=== PATIENT | male | born 1975 | race Hispanic/Latino ===

== ENCOUNTER 2016-11-25 07:31 | Emergency (ER) | payer MEDICARE, MEDICAID ==
--- NOTE | 2016-11-25 08:15 | RAD ---
2 VIEWS CHEST: Date: 11/25/16 COMPARISON: 09/09/16. HISTORY: Cough with congestion. FINDINGS: Two views of the chest show normal sized cardiomediastinal silhouette. There is no evidence of conso lidation, mass, or pleural effusion. The bones are unremarkable. IMPRESSION: No evidence of acute cardiopulmonary disease. POS: [facility]
[2016-11-25 08:36] LABS: #Basophils 0.1 thou/uL (0.0-0.2); #Eosinphils 0.2 thou/uL (0.0-0.7); #Lymphocytes 2.3 thou/uL (1.20-3.40); #Monocytes 0.5 thou/uL (0.11-0.59); #Neutrophils 4.4 thou/uL (1.40-6.50); %Eosinophils 2.3 % (0.0-10.0); %Lymphocytes 30.8 % (21.0-51.0); Hematocrit 45.3 % (42.0-52.0); Mean Platelet Volume 7.3 fL (7.4-10.4); White Blood Cell (WBC) Count 7.5 thou/uL (4.8-10.8)
[2016-11-25 08:52] LABS: ALT (SGPT) 38 U/L (8-55); AST (SGOT) 30 U/L (5-34); Alkaline Phosphatase 85 U/L (40-150); Anion Gap 11 mmol/L (10-20); BUN (Urea Nitrogen) 7 mg/dL (8.9-20.6); Bilirubin, Total 0.4 mg/dL (0.2-1.2); CK (CPK) 91 U/L (30-200); Calc. Creatinine Clearance 0 mL/min (70-130); Calcium 8.8 mg/dL (7.8-10.44); Carbon Dioxide 19 mmol/L (22-29); Chloride 114 mmol/L (98-107); Estimated GFR-MDRD 69; Globulin 2.9 g/dL (2.4-3.5); Lipase 31 U/L (8-78); Protein, Total 6.9 g/dL (6.0-8.3)
[2016-11-25 08:54] LABS: Bilirubin Negative (Negative); Blood, Urine Negative (Negative); Glucose, Urine (Dipstick) Negative (Negative); Ketone, Urine Negative (Negative); Nitrite Negative (Negative); Protein, Urine (Dipstick) Negative (Neg-Trace); Urobilinogen 0.2 mg/dL (0.2-1.0)
[2016-11-25 08:56] LABS: Troponin I Less than 0.010 ng/mL (< 0.028)
== END 2016-11-25 09:35 | disposition home or self-care (01) ==
LOC: ERS 07:31
DX: B34.9 Viral infection, unspecified (principal); J45.909 Unspecified asthma, uncomplicated; I10 Essential (primary) hypertension
CPT/HCPCS: 36415; 71020; 80053; 81003; 82553; 83690; 83880; 84484; 85025; 93005

== ENCOUNTER 2016-12-23 20:20 | Emergency (ER) | payer MEDICARE, MEDICAID ==
[2016-12-23] MEDS ORDERED: Ketorolac Tromethamine 30 MG/ML VIAL ONE (21:31)
--- NOTE | 2016-12-23 22:26 | RAD ---
FOUR VIEWS RIGHT KNEE 12/23/16 HISTORY: Right knee pain. AP, lateral and both oblique views of the right knee is obtained. No evidence of right knee fractures, subluxations or bony lesions seen. IMPRESSION: Normal four views right knee. POS: [facility]
== END 2016-12-23 23:01 | disposition home or self-care (01) ==
LOC: ERS 20:20
DX: M23.91 Unspecified internal derangement of right knee (principal); J45.909 Unspecified asthma, uncomplicated; I11.0 Hypertensive heart disease with heart failure; I50.9 Heart failure, unspecified; Z86.73 Personal history of transient ischemic attack (TIA), and cerebral infarction without residual deficits; X50.1XXA Overexertion from prolonged static or awkward postures, initial encounter
CPT/HCPCS: 96372; J1885

== ENCOUNTER 2016-12-30 20:09 | Emergency (ER) | payer MEDICARE, MEDICAID ==
[2016-12-30 20:41] LABS: #Basophils 0.1 thou/uL (0.0-0.2); #Eosinphils 0.2 thou/uL (0.0-0.7); #Lymphocytes 2.5 thou/uL (1.20-3.40); #Monocytes 0.9 thou/uL (0.11-0.59); #Neutrophils 5.4 thou/uL (1.40-6.50); %Basophils 1.1 % (0.0-1.0); %Eosinophils 2.5 % (0.0-10.0); %Lymphocytes 27.3 % (21.0-51.0); %Monocytes 9.6 % (0.0-10.0); Hematocrit 40.8 % (42.0-52.0); Mean Platelet Volume 6.9 fL (7.4-10.4); Red Blood Cell (RBC) Count 4.36 mill/uL (4.70-6.10); White Blood Cell (WBC) Count 9.1 thou/uL (4.8-10.8)
[2016-12-30 21:02] LABS: ALT (SGPT) 31 U/L (8-55); AST (SGOT) 23 U/L (5-34); Alkaline Phosphatase 91 U/L (40-150); Anion Gap 13 mmol/L (10-20); BUN (Urea Nitrogen) 11 mg/dL (8.9-20.6); Bilirubin, Total 0.4 mg/dL (0.2-1.2); Calc. Creatinine Clearance 0 mL/min (70-130); Calcium 8.4 mg/dL (7.8-10.44); Carbon Dioxide 17 mmol/L (22-29); Chloride 112 mmol/L (98-107); Estimated GFR-MDRD 75; Globulin 2.7 g/dL (2.4-3.5); Protein, Total 6.5 g/dL (6.0-8.3)
[2016-12-30] MEDS ORDERED: Ketorolac Tromethamine 30 MG/ML VIAL ONE ×2 (21:52→22:00)
--- NOTE | 2017-02-19 13:58 | EKG ---
Test Reason : Blood Pressure : / mmHG Vent. Rate : 069 BPM Atrial Rate : 069 BPM P-R Int : 134 ms QRS Dur : 098 ms QT Int : 402 ms P-R-T Axes : 017 014 021 degrees QTc Int : 430 ms Normal sinus rhythm Normal ECG Confirmed by CLINTON MELENDEZ DO ([id number]), state editor TU PEARSON ([id number]) on 02/19/2017 1:58:22 PM Referred By: Confirmed By:CLINTON MELENDEZ DO
== END 2016-12-30 23:27 | disposition home or self-care (01) ==
LOC: ERS 20:09
DX: R42 Dizziness and giddiness (principal); T48.205A Adverse effect of unspecified drugs acting on muscles, initial encounter; J45.909 Unspecified asthma, uncomplicated; I11.0 Hypertensive heart disease with heart failure; I50.9 Heart failure, unspecified; I25.2 Old myocardial infarction
CPT/HCPCS: 36415; 80053; 85025; 93005; 96361; 96374; J1885

== ENCOUNTER 2017-05-18 14:27 | Emergency (ER) | payer MEDICARE, MEDICAID ==
[2017-05-18 15:46] LABS: #Basophils 0.1 thou/uL (0.0-0.2); #Eosinphils 0.2 thou/uL (0.0-0.7); #Lymphocytes 2.8 thou/uL (1.20-3.40); #Monocytes 0.9 thou/uL (0.11-0.59); #Neutrophils 5.5 thou/uL (1.40-6.50); %Basophils 0.7 % (0.0-1.0); %Eosinophils 1.7 % (0.0-10.0); %Lymphocytes 29.9 % (21.0-51.0); %Monocytes 9.3 % (0.0-10.0); %Neutrophils 58.4 % (42.0-75.0); Hemoglobin 15.7 g/dL (14.0-18.0); Mean Corpuscular HGB CONC 34.4 g/dL (32.0-36.0); Mean Corpuscular Hemoglobin 31.8 pg (27.0-31.0); Mean Corpuscular Volume 92.4 fl (80.0-94.0); Mean Platelet Volume 7.2 fL (7.4-10.4); Platelet Count 271 thou/uL (130-400); Red Blood Cell (RBC) Count 4.92 mill/uL (4.70-6.10); White Blood Cell (WBC) Count 9.5 thou/uL (4.8-10.8)
[2017-05-18 16:08] LABS: ALT (SGPT) 55 U/L (8-55); AST (SGOT) 37 U/L (5-34); Albumin 4.3 g/dL (3.5-5.0); Alkaline Phosphatase 114 U/L (40-150); Anion Gap 14 mmol/L (10-20); BUN (Urea Nitrogen) 8 mg/dL (8.9-20.6); Bilirubin, Total 0.4 mg/dL (0.2-1.2); Calc. Creatinine Clearance 0 mL/min (70-130); Calcium 9.2 mg/dL (7.8-10.44); Carbon Dioxide 20 mmol/L (22-29); Chloride 110 mmol/L (98-107); Estimated GFR-MDRD 72; Glucose 90 mg/dL (70-105); Potassium 4.3 mmol/L (3.5-5.1); Protein, Total 7.3 g/dL (6.0-8.3); Sodium 140 mmol/L (136-145)
--- NOTE | 2017-05-18 16:08 | RAD ---
FRONTAL VIEW CHEST: Date: 05/18/17 COMPARISON: 11/25/16. INDICATION: Dyspnea. FINDINGS: There is a subtle nodular density at the inferolateral right chest. Left lung is clear. Cardiac silho uette is stable. No additional significant interval change. IMPRESSION: Subtle nodular density inferolateral right hemithorax. Underlying nodule cannot be excluded. Recommen d follow-up with 2 view chest for further evaluation. CODE LN. POS: [facility]
[2017-05-18 16:12] LABS: CKMB 4.3 ng/mL (0-6.6); Troponin I Less than 0.010 ng/mL (< 0.028)
[2017-05-18] MEDS ORDERED: Metoclopramide HCl 10 MG/2 ML VIAL ONE (17:27)
[2017-05-18] MEDS ORDERED: diphenhydrAMINE 50 MG/ML VIAL ONE (17:27)
[2017-05-18 17:53] LABS: Bilirubin Negative (Negative); Blood, Urine Negative (Negative); Clarity CLEAR (Clear); Glucose, Urine (Dipstick) Negative (Negative); Leukocyte Negative (Negative); Nitrite Negative (Negative); Protein, Urine (Dipstick) Negative (Neg-Trace); Specific Gravity, Urine 1.017 (1.002-1.036); Urobilinogen 0.2 mg/dL (0.2-1.0); pH, Urine 5.5 (5.0-9.0)
--- NOTE | 2017-05-18 18:50 | CT ---
CT BRAIN NONCONTRAST: 05/18/17 HISTORY: 42-year-old male with headache, syncope, and dizziness. FINDINGS: There is no midline shift or any other mass effect. There is no evidence of acute intracranial hemor rhage, large cortical infarct, obstructive hydrocephalus, or extraaxial fluid collection. The calvar ium is intact. IMPRESSION: No acute intracranial findings. jn [] POS: [facility]
== END 2017-05-18 19:50 | disposition home or self-care (01) ==
LOC: ERS 14:27
DX: R51 Headache (principal); M79.1 Myalgia; I11.0 Hypertensive heart disease with heart failure; J45.909 Unspecified asthma, uncomplicated; I50.9 Heart failure, unspecified; I25.2 Old myocardial infarction; F32.9 Major depressive disorder, single episode, unspecified; Z86.73 Personal history of transient ischemic attack (TIA), and cerebral infarction without residual deficits
CPT/HCPCS: 36415; 70450; 71045; 80053; 81003; 82553; 83880; 84484; 85025; 93005; 96365; 96375; J1200; J2765

== ENCOUNTER 2017-06-03 18:26 | Emergency (ER) | payer MEDICARE, MEDICAID ==
[2017-06-03] MEDS ORDERED: Fluorescein Opthalmic Strip ONE (18:42)
[2017-06-03] MEDS ORDERED: Proparacaine 0.5% Opth 15 ML BOT ONE (18:42)
[2017-06-03] MEDS ORDERED: Adacel (T-DAP) 0.5 ML VIAL ONE (20:07)
== END 2017-06-03 20:20 | disposition home or self-care (01) ==
LOC: ERS 18:26
DX: S05.02XA Injury of conjunctiva and corneal abrasion without foreign body, left eye, initial encounter (principal); S05.01XA Injury of conjunctiva and corneal abrasion without foreign body, right eye, initial encounter; S00.211A Abrasion of right eyelid and periocular area, initial encounter; S00.31XA Abrasion of nose, initial encounter; S50.311A Abrasion of right elbow, initial encounter; F41.9 Anxiety disorder, unspecified; I11.0 Hypertensive heart disease with heart failure; I50.9 Heart failure, unspecified; I25.2 Old myocardial infarction; F32.9 Major depressive disorder, single episode, unspecified; Z79.899 Other long term (current) drug therapy; Y04.0XXA Assault by unarmed brawl or fight, initial encounter
CPT/HCPCS: 90471; 90715; 93005

== ENCOUNTER 2017-08-08 06:58 | Emergency (ER) | payer MEDICARE, MEDICAID ==
[2017-08-08 07:42] LABS: #Basophils 0.1 thou/uL (0.0-0.2); #Eosinphils 0.2 thou/uL (0.0-0.7); #Lymphocytes 2.5 thou/uL (1.20-3.40); #Monocytes 0.5 thou/uL (0.11-0.59); #Neutrophils 3.8 thou/uL (1.40-6.50); %Basophils 1.3 % (0.0-1.0); %Lymphocytes 35.1 % (21.0-51.0); %Monocytes 7.2 % (0.0-10.0); %Neutrophils 53.4 % (42.0-75.0); Hemoglobin 14.2 g/dL (14.0-18.0); Mean Corpuscular HGB CONC 33.6 g/dL (32.0-36.0); Mean Corpuscular Hemoglobin 31.6 pg (27.0-31.0); Mean Corpuscular Volume 94.1 fl (80.0-94.0); Mean Platelet Volume 8.1 fL (7.4-10.4); Platelet Count 213 thou/uL (130-400); RBC Distribution Width 11.6 % (11.5-14.5); Red Blood Cell (RBC) Count 4.49 mill/uL (4.70-6.10); White Blood Cell (WBC) Count 7.2 thou/uL (4.8-10.8)
[2017-08-08 08:07] LABS: ALT (SGPT) 30 U/L (8-55); AST (SGOT) 25 U/L (5-34); Albumin 3.9 g/dL (3.5-5.0); Alkaline Phosphatase 110 U/L (40-150); Anion Gap 11 mmol/L (10-20); BUN (Urea Nitrogen) 5 mg/dL (8.9-20.6); Bilirubin, Total 0.3 mg/dL (0.2-1.2); CK (CPK) 227 U/L (30-200); Calc. Creatinine Clearance 0 mL/min (70-130); Calcium 8.6 mg/dL (7.8-10.44); Carbon Dioxide 19 mmol/L (22-29); Chloride 113 mmol/L (98-107); Estimated GFR-MDRD 71; Globulin 2.9 g/dL (2.4-3.5); Glucose 103 mg/dL (70-105); Potassium 4.1 mmol/L (3.5-5.1); Protein, Total 6.8 g/dL (6.0-8.3); Sodium 139 mmol/L (136-145)
--- NOTE | 2017-08-08 08:09 | RAD ---
PORTABLE CHEST 1 VIEW: Date: 08/08/17 Time: 0745 hours HISTORY: Chest pain. FINDINGS: Comparison made with exam of 05/18/17. The heart size is normal. No focal areas of consolidation, pneumothoraces, or pleural effusions are s een. IMPRESSION: No radiographic evidence of acute cardiopulmonary process. POS: [facility]
[2017-08-08 08:12] LABS: CKMB 5.4 ng/mL (0-6.6); Troponin I Less than 0.010 ng/mL (< 0.028)
--- NOTE | 2017-08-08 08:37 | CT ---
CT HEAD NONCONTRAST: Date: 08/08/17 HISTORY: Headache. COMPARISON: 05/18/17. FINDINGS: No evidence of acute intracranial hemorrhage or infarct. Ventricles appear normal in size, shape, and position. No mass effect or shift of midline structures. Visualized paranasal sinuses remain well ae rated. IMPRESSION: No acute intracranial abnormalities are demonstrated on noncontrast CT head. POS: [facility]
[2017-08-08] MEDS ORDERED: Acetaminophen 500 MG TAB ONE (09:22)
[2017-08-08 12:37] LABS: Acetaminophen Less than 6.0 mcg/mL (10.0-30.0); Alcohol Less than 10 mg/dL (Less than 10); Salicylate Less than 8.0 mg/dL (15.0-30.0)
[2017-08-08 12:57] LABS: Amphetamine Not Detected (NotDetected); Barbiturates Screen Not Detected (NotDetected); Benzodiazepine Screen Not Detected (NotDetected); Cocaine Metabolite Screen Detected (NotDetected); Medtox Reader # READER 4; Methadone Not Detected (NotDetected); Methamphetamine Not Detected (NotDetected); Opiate Screen Not Detected (NotDetected); Oxycodone Screen Not Detected (NotDetected); Phencyclidine (PCP) Not Detected (NotDetected); THC/Cannabinoid Screen Not Detected (NotDetected); Tricyclic Screen Not Detected (NotDetected)
[2017-08-08 12:58] LABS: Medtox Control Line Valid? VALID (VALID)
== END 2017-08-08 15:25 | disposition home or self-care (01) ==
LOC: ERS 06:58
DX: F32.9 Major depressive disorder, single episode, unspecified (principal); R07.89 Other chest pain; Z86.73 Personal history of transient ischemic attack (TIA), and cerebral infarction without residual deficits; I11.0 Hypertensive heart disease with heart failure; I50.9 Heart failure, unspecified; J45.909 Unspecified asthma, uncomplicated; F41.9 Anxiety disorder, unspecified; I25.2 Old myocardial infarction
CPT/HCPCS: 70450; 71045; 80306; 80307; 82553; 84484; 85025; 93005; 94760

== ENCOUNTER 2017-09-09 06:19 | Emergency (ER) | payer MEDICARE, MEDICAID ==
--- NOTE | 2017-09-09 07:45 | RAD ---
FOUR VIEWS OF THE LEFT KNEE: INDICATION: Left knee pain. COMPARISON: None. FINDINGS: There is enthesopathic change off the patella. No acute fracture or subluxation is evident. IMPRESSION: No acute abnormality. POS: [facility]
[2017-09-09] MEDS ORDERED: Ketorolac Tromethamine 30 MG/ML VIAL ONE (08:07)
== END 2017-09-09 08:32 | disposition home or self-care (01) ==
LOC: ERS 06:19
DX: S83.92XA Sprain of unspecified site of left knee, initial encounter (principal); J45.909 Unspecified asthma, uncomplicated; I11.0 Hypertensive heart disease with heart failure; I50.9 Heart failure, unspecified; I25.2 Old myocardial infarction; R56.9 Unspecified convulsions; F41.9 Anxiety disorder, unspecified; F32.9 Major depressive disorder, single episode, unspecified; Z86.73 Personal history of transient ischemic attack (TIA), and cerebral infarction without residual deficits; Z79.899 Other long term (current) drug therapy; W18.2XXA Fall in (into) shower or empty bathtub, initial encounter
CPT/HCPCS: 96372; J1885

== ENCOUNTER 2017-10-20 07:42 | Outpatient (CLI) | payer MEDICARE, MEDICAID | END 2017-10-20 07:43 | disposition home or self-care (01) | LOC: BICMRI 07:42 | PROVIDERS: ATTEND Otolaryngology Plastic Surgery within the Head & Neck | DX: H91.93 Unspecified hearing loss, bilateral (principal); J38.00 Paralysis of vocal cords and larynx, unspecified | CPT/HCPCS: 70210; 70491; 70553 ==

== ENCOUNTER 2017-11-02 07:57 | Day surgery (SDC) | payer MEDICARE, MEDICAID ==
[2017-11-01 09:33] VITALS: BMI 40.3
[2017-11-02] MEDS ORDERED: EPINEPHrine 1 MG/ML AMP ONE (10:21)
[2017-11-02] MEDS ORDERED: Propofol 500 MG/50 ML VIAL ONE (10:25)
[2017-11-02] MEDS ORDERED: SUGAMMADEX SODIUM 200 MG/2 ML VIAL ONE (10:26)
[2017-11-02] MEDS ORDERED: Fentanyl 100 MCG/2 ML VIAL ONE (10:31)
[2017-11-02] MEDS ORDERED: Hydrocodone-Acetamin 15 ML UDCUP ONE (12:32)
--- NOTE | 2017-11-02 14:13 | OP ---
PREOPERATIVE DIAGNOSES: 1. Left true vocal cord paralysis. 2. Dysphonia. POSTOPERATIVE DIAGNOSES: 1. Left true vocal cord paralysis 2. Dysphonia. PROCEDURES PERFORMED: 1. Microsuspension direct laryngoscopy. 2. Prolaryn injection medialization laryngoplasty. SURGEON: Claudio Che M.D. ESTIMATED BLOOD LOSS: 0 mL COMPLICATIONS: None. ANESTHESIA: GETA. DESCRIPTION OF PROCEDURE: The patient was taken to the operating room and placed on the table. Head of the bed was turned to 90 degrees. Shoulder roll was placed. Following this, the operating micro scope was brought into the field and the vocal cords were placed in suspension using the Dedo laryngo scope. The laryngeal structures of the hypopharynx, postcricoid area, base of tongue, vallecula were all within normal limits. Following this, using the injection needle and the 400 mm lens on the ope rating microscope, injections were made just medial to the thyroarytenoid muscle on the left true voc al cord. This medialized the muscle and vocal cord to nearly midline. Following this, a small Afrin pledget was placed on the injection sites and was allowed to soak for 3 minutes. The patient tolera manuel the procedure well.
--- NOTE | 2017-11-03 07:54 | EKG ---
Test Reason : PREOP Blood Pressure : / mmHG Vent. Rate : 053 BPM Atrial Rate : 053 BPM P-R Int : 142 ms QRS Dur : 096 ms QT Int : 442 ms P-R-T Axes : 005 005 025 degrees QTc Int : 414 ms Sinus bradycardia with sinus arrhythmia Otherwise normal ECG When compared with ECG of 08-AUG-2017 07:15, No significant change was found Confirmed by DR. Christina PHILIPPE ([id number]) on 11/03/2017 7:54:21 AM Referred By: EL Confirmed By:DR. Christina PHILIPPE
== END 2017-11-02 14:09 | disposition home or self-care (01) ==
LOC: SDC 07:57
PROVIDERS: ATTEND Otolaryngology Plastic Surgery within the Head & Neck
PROC: 3E0F8GC Introduction of Other Therapeutic Substance into Respiratory Tract, Via Natural or Artificial Opening Endoscopic (ICD-10-PCS; principal; 2017-11-02)
DX: J38.01 Paralysis of vocal cords and larynx, unilateral (principal); J45.909 Unspecified asthma, uncomplicated; G47.33 Obstructive sleep apnea (adult) (pediatric); H80.90 Unspecified otosclerosis, unspecified ear; H90.11 Conductive hearing loss, unilateral, right ear, with unrestricted hearing on the contralateral side; I10 Essential (primary) hypertension; Z87.891 Personal history of nicotine dependence; Z79.899 Other long term (current) drug therapy; Z91.038 Other insect allergy status; Z88.8 Allergy status to other drugs, medicaments and biological substances
CPT/HCPCS: 93005; 93010; J0171; J2704; J3010

== ENCOUNTER 2017-11-16 11:12 | Emergency (ER) | payer MEDICARE, MEDICAID ==
[2017-11-16 12:34] LABS: #Basophils 0.1 thou/uL (0.0-0.2); #Eosinphils 0.1 thou/uL (0.0-0.7); #Lymphocytes 1.9 thou/uL (1.20-3.40); #Monocytes 0.5 thou/uL (0.11-0.59); #Neutrophils 4.8 thou/uL (1.40-6.50); %Basophils 0.7 % (0.0-1.0); %Eosinophils 1.4 % (0.0-10.0); %Lymphocytes 25.4 % (21.0-51.0); %Monocytes 6.8 % (0.0-10.0); %Neutrophils 65.7 % (42.0-75.0); Hemoglobin 14.3 g/dL (14.0-18.0); Mean Corpuscular HGB CONC 34.2 g/dL (32.0-36.0); Mean Corpuscular Hemoglobin 31.5 pg (27.0-31.0); Mean Corpuscular Volume 92.1 fL (78.0-98.0); Mean Platelet Volume 7.9 fL (7.4-10.4); Platelet Count 237 thou/uL (130-400); Red Blood Cell (RBC) Count 4.55 mill/uL (4.70-6.10); White Blood Cell (WBC) Count 7.3 thou/uL (4.8-10.8)
[2017-11-16] MEDS ORDERED: HYDROcodone/Acetaminophen 5/325 mg Tablet ONE (12:40)
[2017-11-16 12:59] LABS: ALT (SGPT) 41 U/L (8-55); AST (SGOT) 30 U/L (5-34); Albumin 3.9 g/dL (3.5-5.0); Alkaline Phosphatase 108 U/L (40-150); Anion Gap 9 mmol/L (10-20); BUN (Urea Nitrogen) 7 mg/dL (8.9-20.6); Bilirubin, Total 0.5 mg/dL (0.2-1.2); Calc. Creatinine Clearance 0 mL/min (70-130); Calcium 8.8 mg/dL (7.8-10.44); Carbon Dioxide 22 mmol/L (22-29); Chloride 113 mmol/L (98-107); Estimated GFR-MDRD 73; Globulin 2.9 g/dL (2.4-3.5); Glucose 98 mg/dL (70-105); Potassium 3.9 mmol/L (3.5-5.1); Protein, Total 6.8 g/dL (6.0-8.3); Sodium 140 mmol/L (136-145)
--- NOTE | 2017-11-16 14:13 | RAD ---
CHEST 2 VIEWS: Date: 11/16/17 HISTORY: Cough. COMPARISON: Chest radiograph from 2017. FINDINGS: Lungs are clear. No pneumothorax or effusion. Cardiac silhouette and mediastinal contours within norm al limits. IMPRESSION: No acute intrathoracic abnormality. POS: [facility]
== END 2017-11-16 13:37 | disposition home or self-care (01) ==
LOC: ERS 11:12
DX: J02.9 Acute pharyngitis, unspecified (principal); Z86.73 Personal history of transient ischemic attack (TIA), and cerebral infarction without residual deficits; J45.909 Unspecified asthma, uncomplicated; I50.9 Heart failure, unspecified; I11.0 Hypertensive heart disease with heart failure; I25.2 Old myocardial infarction; F41.9 Anxiety disorder, unspecified; F32.9 Major depressive disorder, single episode, unspecified
CPT/HCPCS: 71046; 80053; 85025

== ENCOUNTER 2017-11-21 14:27 | Outpatient (CLI) | payer MEDICARE, MEDICAID ==
--- NOTE | 2017-11-22 09:56 | CT ---
CT INTERNAL AUDITORY CANALS AND TEMPORAL BONES WITHOUT CONTRAST: Date: 11/21/17 HISTORY: Trouble with hearing loss, ringing, and sometimes popping in both ears. Right greater than left. COMPARISON: None. TECHNIQUE: CT of the IACs/temporal bones performed without contrast. Coronal reformatted images are submitted fo r interpretation. FINDINGS: Visualized brain parenchyma is unremarkable. Visualized orbits are also unremarkable. There is adequa te aeration of the visualized paranasal sinuses with minimal mucosal thickening. Right IAC/Temporal Bones: The internal auditory canal, cochlea, vestibule, and semicircular canals have a normal appearance and configuration. Vestibular aqueduct is not enlarged. Adequate aeration of the middle ear. Ossicular c margaret is intact. Stapedial footplate is appropriately located. Scutum is sharp. Tegmen tympani and teg men mastoideum are preserved. Intraosseous septae of the mastoid air cells are intact. Tympanic membr ane is unremarkable. External auditory canal is patent. Left IAC/Temporal Bones: The internal auditory canal, cochlea, vestibule, and semicircular canals have appropriate appearance and configuration. Vestibular aqueduct is not enlarged. Adequate aeration of the middle ear. Ossicula r chain is intact. Stapedial footplate is appropriately located. Tegmen tympani and tegmen mastoideum are preserved. Intraosseous septae of the mastoid air cells are preserved. Scutum is sharp. Tympanic membrane is unremarkable. External auditory canal is patent. IMPRESSION: Unremarkable IACs/temporal bones. POS: [facility]
== END 2017-11-21 14:28 | disposition home or self-care (01) ==
LOC: BICCT 14:27
PROVIDERS: ATTEND Otolaryngology Otology & Neurotology
DX: H80.90 Unspecified otosclerosis, unspecified ear (principal)
CPT/HCPCS: 70480

== ENCOUNTER 2017-12-01 14:32 | Outpatient (CLI) | payer MEDICARE, MEDICAID | END 2017-12-01 14:33 | disposition home or self-care (01) | LOC: CTENTCT 14:32 | PROVIDERS: ATTEND Otolaryngology Plastic Surgery within the Head & Neck | DX: J32.9 Chronic sinusitis, unspecified (principal) | CPT/HCPCS: 70486 ==

== ENCOUNTER 2017-12-07 06:32 | Day surgery (SDC) | payer MEDICARE, MEDICAID ==
[2017-12-06 11:37] VITALS: BMI 42.5
[2017-12-07] MEDS ORDERED: Oxymetazoline HCl 0.05% ( 15 ML ) ONE ×2 (07:24→08:58)
[2017-12-07] MEDS ORDERED: Lidocaine 1% w/Epinephrine 1:100K 30 ML VIAL ONE (08:58)
[2017-12-07] MEDS ORDERED: Midazolam HCl 2 mg/2 ml Vial ONE (09:03)
[2017-12-07] MEDS ORDERED: Fentanyl 100 MCG/2 ML VIAL ONE ×2 (09:03→10:41)
[2017-12-07] MEDS ORDERED: Morphine 4 MG/ML VIAL ONE (12:04)
[2017-12-07] MEDS ORDERED: Lidocaine 1% PF 5 ML VIAL ONE (17:36)
[2017-12-07] MEDS ORDERED: PROPOFOL 200 MG/20 ML VIAL ONE (17:36)
[2017-12-07] MEDS ORDERED: Ondansetron HCl/PF 4 MG/2 ML Vial ONE (17:36)
[2017-12-07] MEDS ORDERED: Dexamethasone 20 MG/5 ML VIAL ONE (17:36)
[2017-12-07] MEDS ORDERED: Glycopyrrolate 0.2 MG/ML 5 ML SYRINGE ONE (17:36)
[2017-12-07] MEDS ORDERED: Succinylcholine Chloride 20 MG/ML 10 ml SYRINGE FS ONE (17:36)
--- NOTE | 2017-12-08 13:40 | OP ---
DATE OF PROCEDURE: 12/08/2017 PREOPERATIVE DIAGNOSES: 1. Chronic rhinosinusitis. 2. Bilateral inferior turbinate hypertrophy. 3. Nasal obstruction. POSTOPERATIVE DIAGNOSES: 1. Chronic rhinosinusitis. 2. Bilateral inferior turbinate hypertrophy. 3. Nasal obstruction. PROCEDURES: 1. Bilateral endoscopic sinus surgery, total ethmoidectomies. 2. Bilateral endoscopic sinus surgery, maxillary antrostomies. 3. Bilateral endoscopic sinus surgery, frontal sinusotomies. 4. Bilateral endoscopic sinus surgery, sphenoidotomies. 5. Bilateral inferior turbinate submucosal resection. SURGEON: Claudio Che M.D. ESTIMATED BLOOD LOSS: 20 mL. COMPLICATIONS: None. ANESTHESIA: GETA. PROCEDURE IN DETAIL: The patient was taken to the operating room and placed supine on the table. Ge neral endotracheal anesthesia was obtained by the Anesthesia staff. Tube was secured in the left low er lip. The patient was then placed in the beach chair position. Afrin pledgets were placed in the nasal cavity as the patient was prepped and draped for standard nasal procedure. Following this, the Afrin pledgets were removed. The 0 degree endoscope was used to examine the nasal cavity as well as make injections with 1% lidocaine with 1:100,000 epinephrine into the inferior turbinates, middle tu rbinates and the lateral nasal wall bilaterally. Following this, the middle turbinates were identifi ed bilaterally and were gently fractured medially with [place] elevator. The uncinate process was then exposed bilaterally and was anteriorly fractured using a ball-ended probe. The uncinate process was then removed bilaterally using the straight microdebrider and upbiting [place]akes[place] forceps. Following this, the natural maxillary sinus ostia were identified using the ball-ended probe. It was gently w idened with the ball-ended probe, straight [place] forceps and the 0 40-degree curved microdebrider blade. Following this, the ethmoidal bulla was identified bilaterally and was punctured on its medi al and inferior aspect with the microdebrider and was removed. Following this, the grand lamella was identified and was punctured in the posterior ethmoidal cells with the 0 degree microdebrider. Work ing from posterior to anterior, the ethmoidal cells were opened using the 0 degree microdebrider. Fo llowing this, the sphenoid sinus ostia was approached through the previous ethmoidectomies. The sphe noid sinus ostia was identified and was widened medially and inferiorly using the 0 degree microdebri joe bilaterally. Following this, the 45 degree scope and the curved microdebrider were used to furth er open the anterior ethmoidal cells and frontal recess cells. Following this, the frontal sinus ost ia was identified bilaterally and was widened using the curved microdebrider blade. Following this, the inferior turbinates were punctured on the anterior inferior aspect and submucosal resection was p erformed of the anterior inferior portions of the inferior turbinates bilaterally. Inferior turbinat es were then laterally fractured using a [place] elevator. Following this, the nasal cavity was irriga manuel. MeroPacks were placed within the middle meatus. The patient tolerated the procedure well.
== END 2017-12-07 13:10 | disposition home or self-care (01) ==
LOC: SDC 06:32
PROVIDERS: ATTEND Otolaryngology Plastic Surgery within the Head & Neck
PROC: 09BV8ZZ Excision of Left Ethmoid Sinus, Via Natural or Artificial Opening Endoscopic (ICD-10-PCS; principal; 2017-12-07)
PROC: 09BU8ZZ Excision of Right Ethmoid Sinus, Via Natural or Artificial Opening Endoscopic (ICD-10-PCS; 2017-12-07)
DX: J32.4 Chronic pansinusitis (principal); J34.3 Hypertrophy of nasal turbinates; J34.89 Other specified disorders of nose and nasal sinuses; Z88.8 Allergy status to other drugs, medicaments and biological substances
CPT/HCPCS: 96374; J0131; J1100; J2001; J2250; J2270; J2405; J2704; J3010; J7620

== ENCOUNTER 2018-03-09 18:39 | Observation (INO) | payer MEDICARE, MEDICAID ==
[2018-03-09 20:10] LABS: #Basophils 0.1 thou/uL (0.0-0.2); #Eosinphils 0.2 thou/uL (0.0-0.7); #Lymphocytes 2.6 thou/uL (1.20-3.40); #Monocytes 0.7 thou/uL (0.11-0.59); #Neutrophils 5.3 thou/uL (1.40-6.50); %Basophils 0.8 % (0.0-1.0); %Eosinophils 2.1 % (0.0-10.0); %Lymphocytes 29.3 % (21.0-51.0); %Monocytes 7.8 % (0.0-10.0); %Neutrophils 59.9 % (42.0-75.0); Hemoglobin 14.3 g/dL (14.0-18.0); Mean Corpuscular HGB CONC 34.9 g/dL (32.0-36.0); Mean Corpuscular Hemoglobin 31.7 pg (27.0-31.0); Mean Corpuscular Volume 90.9 fL (78.0-98.0); Platelet Count 238 thou/uL (130-400); RBC Distribution Width 11.6 % (11.5-14.5); Red Blood Cell (RBC) Count 4.52 mill/uL (4.70-6.10); White Blood Cell (WBC) Count 8.8 thou/uL (4.8-10.8)
[2018-03-09 20:25] LABS: ALT (SGPT) 33 U/L (8-55); AST (SGOT) 34 U/L (5-34); Albumin 4.2 g/dL (3.5-5.0); Alkaline Phosphatase 118 U/L (40-150); Anion Gap 13 mmol/L (10-20); BUN (Urea Nitrogen) 11 mg/dL (8.9-20.6); Bilirubin, Total 0.3 mg/dL (0.2-1.2); Calc. Creatinine Clearance 0 mL/min (70-130); Calcium 9.1 mg/dL (7.8-10.44); Carbon Dioxide 19 mmol/L (22-29); Chloride 110 mmol/L (98-107); Estimated GFR-MDRD 60; Globulin 3.3 g/dL (2.4-3.5); Glucose 130 mg/dL (70-105); Potassium 3.7 mmol/L (3.5-5.1); Protein, Total 7.5 g/dL (6.0-8.3); Sodium 138 mmol/L (136-145)
--- NOTE | 2018-03-09 20:36 | RAD ---
PORTABLE CHEST: 03/09/18 PROVIDED CLINICAL HISTORY: Chest pain. FINDINGS: Comparison 08/08/17. The cardiac silhouette appears enlarged. No focal consolidation, pleural fluid or pneumothorax appare nt. IMPRESSION: Cardiomegaly without evidence for an acute cardiopulmonary process. POS: [facility]
[2018-03-09 21:42] LABS: Troponin I Less than 0.010 ng/mL (< 0.028)
[2018-03-09] MEDS ORDERED: Acetaminophen 325 MG TAB ONE (22:36)
[2018-03-09] MEDS ORDERED: Calcium Carbonate 500 MG ChewTAB PO PRN (22:43)
[2018-03-09] MEDS ORDERED: Acetaminophen 325 MG TAB PO PRN (22:43)
[2018-03-09] MEDS ORDERED: Zolpidem Tartrate 5 MG TAB PO PRN (22:43)
[2018-03-09] MEDS ORDERED: Senokot S 8.6-50 MG TAB PO PRN (22:43)
[2018-03-09] MEDS ORDERED: Bisacodyl 5 MG TAB PO PRN (22:43)
[2018-03-09] MEDS ORDERED: Nitroglycerin 0.4 MG TAB (25 Tab Bottle) PO PRN (22:43)
[2018-03-09] MEDS ORDERED: Sodium Chloride 0.9% 1,000 ML IV SCH (22:45)
[2018-03-10 02:19] LABS: #Basophils 0.1 thou/uL (0.0-0.2); #Eosinphils 0.1 thou/uL (0.0-0.7); #Lymphocytes 2.5 thou/uL (1.20-3.40); #Monocytes 0.8 thou/uL (0.11-0.59); #Neutrophils 4.1 thou/uL (1.40-6.50); %Eosinophils 1.6 % (0.0-10.0); %Lymphocytes 33.2 % (21.0-51.0); %Monocytes 9.9 % (0.0-10.0); %Neutrophils 54.2 % (42.0-75.0); Hemoglobin 13.7 g/dL (14.0-18.0); Mean Corpuscular HGB CONC 35.6 g/dL (32.0-36.0); Mean Corpuscular Hemoglobin 32.6 pg (27.0-31.0); Mean Corpuscular Volume 91.3 fL (78.0-98.0); Mean Platelet Volume 7.9 fL (7.4-10.4); Platelet Count 213 thou/uL (130-400); RBC Distribution Width 11.6 % (11.5-14.5); White Blood Cell (WBC) Count 7.7 thou/uL (4.8-10.8)
[2018-03-10 02:46] LABS: Albumin 3.8 g/dL (3.5-5.0); Anion Gap 11 mmol/L (10-20); BUN (Urea Nitrogen) 13 mg/dL (8.9-20.6); BUN/Creatinine Ratio 10.57; Calc. Creatinine Clearance 152 mL/min (70-130); Calcium 8.9 mg/dL (7.8-10.44); Carbon Dioxide 22 mmol/L (22-29); Cardiac Risk 5.2 (Less than 4.5); Chloride 112 mmol/L (98-107); Cholesterol 130 mg/dl (< 200 Desired); Estimated GFR-MDRD 65; Glucose 106 mg/dL (70-105); HDL Cholesterol 25 mg/dL (>60 Neg Risk); LDL Cholesterol, Calculated 84 mg/dL; Phosphorus 4.5 mg/dL (2.3-4.7); Potassium 3.6 mmol/L (3.5-5.1); Sodium 141 mmol/L (136-145); Triglycerides 105 mg/dL (Less than 150)
[2018-03-10 02:47] LABS: Troponin I Less than 0.010 ng/mL (< 0.028)
[2018-03-10] MEDS ORDERED: Nitroglycerin 2% Ointment 1 INCH/1 GM Packet TOP SCH (06:00)
[2018-03-10] MEDS ORDERED: Diabetic Tussin 200 MG/10 ML UDCUP PO PRN (07:53)
[2018-03-10] MEDS ORDERED: Metoclopramide HCl 10 MG/2 ML VIAL IVP PRN (07:53)
[2018-03-10] MEDS ORDERED: Loratadine 10 MG TAB PO PRN (07:53)
[2018-03-10] MEDS ORDERED: Cepastat Lozenges 1 LOZ PO PRN (07:53)
[2018-03-10] MEDS ORDERED: Artificial Tears 18 DROP/0.9 ML EA EYE PRN (07:53)
[2018-03-10] MEDS ORDERED: Eucerin (Mineral Oil/Petrolatum,White) 30 gm Jar TOP PRN (07:53)
[2018-03-10] MEDS ORDERED: Loperamide HCl 2 MG CAP PO PRN (07:53)
[2018-03-10] MEDS ORDERED: Sodium Chloride 0.65% Nasal 44 ML BOT EA NARE PRN (07:53)
[2018-03-10] MEDS ORDERED: HYDROcodone/Acetaminophen 5/325 mg Tablet PO PRN (07:53)
[2018-03-10] MEDS ORDERED: hydrALAZINE 20 MG/ML VIAL SLOW IVP PRN (07:53)
[2018-03-10] MEDS ORDERED: Polyethylene Glycol 3350 17 GM Packet PO PRN (07:54)
[2018-03-10] MEDS ORDERED: PROVENTIL INHALER 6.7 G (200 INHALATIONS) INH PRN (07:54)
[2018-03-10] MEDS ORDERED: Lidocaine 1% (PF) 30 ML VIAL ONE (08:11)
[2018-03-10] MEDS ORDERED: Heparin 10,000 UNITS/1 ML VIAL ONE (08:38)
[2018-03-10] MEDS ORDERED: Verapamil 5 MG/2 ML VIAL ONE (08:38)
[2018-03-10] MEDS ORDERED: Nitroglycerin 100MG/250ML BOT 250 ML ONE (08:38)
--- NOTE | 2018-03-10 08:42 | HP ---
CHIEF COMPLAINT: Chest pain. HISTORY OF PRESENT ILLNESS: We have a 43-year-old male with past medical history of seizures; CHF, secondary to cocaine overdose; and [place] in the past, complaining of chest pain which has been ongoing for the past couple of days. The patient states that he has been having similar episodes of chest pain for the past 3 weeks. The patient is stating that he has had a lot of stress in his life. He has lost a lot of people, his mom, his best friend , a person who is close to him recently and all of these deaths is taking the toll on him, and he is having a lot of chest pain and stress. The patient states that his chest pain is actually intermittent, sharp, sudden in onset, and it lasts for an hour or so and subsides. At this time, the patient states that he does not have any pain. The patient also states that he was supposed to see Dr. Lindquist today so that he can get a cardiac cath. The patient does not know which location that he is supposed to go to, but stated that if Dr. Lindquist is going to come to our hospital to do the procedure, then he will be very happy. If not, he is also willing to walk or travel to any place that Dr. Lindquist want him to be, so that he can be able to get the procedure done. Per records, the patient also has abnormal stress test which was done a few weeks ago. At this time, the patient denies any fever, chills, nausea, vomiting, dizziness, abdominal pain, dysuria, hematuria, hematochezia, melena, shortness of breath, or cough. Of note, the patient states that yesterday he was eating pizza and after eating the pizza, he became dizzy, had shortness of breath accompanied by some chest pain. REVIEW OF SYSTEMS: Positive for chest pain and bilateral upper extremity numbness and stiffness. Otherwise as described in the HPI. All systems have been reviewed and are negative. PAST MEDICAL HISTORY: Seizures, short-term memory loss, post CPR in 2001 due to cocaine overdose, TIA in February 2015, hypertension, asthma, CHF, and [place] x2. FAMILY HISTORY: The patient's father had history of heart disease. PAST SURGICAL HISTORY: Tonsillectomy; rectal surgery that was done in July 30, 2015; and vocal cord surgery that was done in 10/2017. PSYCHIATRIC HISTORY: The patient has a history of depression and anxiety. SOCIAL HISTORY: The patient is a former tobacco user. Smoked cigarettes. The patient is a former cocaine user. He states that he has not used cocaine in a while. The patient used to also abuse marijuana. The patient also used to drink a lot of alcohol. The patient stated that he has a caregiver at home. ALLERGIES: THE PATIENT IS ALLERGIC TO DILANTIN AND VENOM WASP. CURRENT MEDICATIONS: The patient is on; 1. Azithromycin 250. 2. Atorvastatin 80 mg. 3. Fluoxetine 10 mg. 4. Keppra 750 mg. 5. Lisinopril 20 mg. 6. Omeprazole 40 mg. 7. Topiramate 100 mg. 8. Gabapentin 200 mg. 9. Tizanidine 4 mg. 10. Clonazepam 1 mg. PHYSICAL EXAMINATION: VITAL SIGNS: Blood pressure is 206/71, pulse of 72, respiratory rate of 18, temperature of 97.9, and O2 saturations of 97. GENERAL: The patient is lying in bed, does not appear to be in any acute distress, speaking in full sentences. HEENT: Normocephalic and atraumatic. Pupils are equally round and reactive to light. Extraocular movements are intact. No scleral icterus. No conjunctival pallor. Mucous membranes are moist. NECK: Trachea is midline. Full range of motion. No JVD. Supple. RESPIRATORY: Clear to auscultation bilaterally. No wheezing, no rales, and no rhonchi appreciated. CARDIAC: Positive S1 and S2. Regular rate and rhythm. No murmurs, no gallops, and no rubs appreciated. ABDOMEN: Obese abdomen. Soft, nontender, and nondistended. Positive bowel sounds in all quadrants. No peritoneal signs. No rigidity. No guarding. EXTREMITIES: 5/5 upper extremity strength and 5/5 lower extremity strength. Good pulses bilaterally at the upper and lower extremities. NEUROLOGIC: Cranial nerves II through XII are grossly intact. No neurologic deficits noted. SKIN: Warm, dry, and intact. IMAGING: A 12-lead EKG shows normal sinus rhythm with a rate of 66. Chest x-ray shows cardiomegaly. LABORATORY DATA: WBC is 8.8, hemoglobin is 14.3, hematocrit is 41.1, RDW 7.6, and platelet count is 238. Electrolytes; sodium is 138, potassium 3.7, chloride 110, carbon dioxide of 19, anion gap of 13, creatinine is 1.31, and glucose is 130. ASSESSMENT AND PLAN: 1. This is a 43-year-old male, being admitted for chest pain, rule out acute coronary syndrome. At this point, the patient does have a history of recurrent chest pains. The patient also had a positive stress test. Dr. Lindquist was supposed to see the patient and have a cardiac cath done. At this point, we have consulted Dr. Lindquist. We will follow up with her recommendations. We have made the patient n.p.o., awaiting possible procedure this a.m. 2. Acute kidney injury, likely due to dehydration. At this point, we will have the patient on fluid hydration. We will continue the patient on fluid hydration. We will follow up on morning creatinine. We will continue the patient on current management. 3. History of depression and anxiety. We will continue the patient on home medications. 4. History of congestive heart failure. At this point, the patient is not in acute failure. We will continue the patient on current management at this time. We will continue the patient on his home medications. 5. History of hypertension. The patient was hypertensive when he came in. At this point, we have managed the patient's blood pressure and the patient is normotensive. We will continue to monitor the patient's blood pressure, and we will treat accordingly. 6. History of seizures. At this point, the patient is stable. We have not had any seizures at this time. We will continue to monitor the patient. 7. History of acute congestive heart failure. At this point, the patient is not in any acute failure. We will continue the patient on current management. 8. Deep venous thrombosis and gastrointestinal prophylaxis addressed. Job ID: [id number]
[2018-03-10] MEDS ORDERED: Midazolam HCl 2 mg/2 ml Vial ONE (08:53)
[2018-03-10] MEDS ORDERED: FLUoxetine HCl 10 MG CAP PO SCH (09:00)
[2018-03-10] MEDS ORDERED: Famotidine/PF 20 mg/2ml Vial SLOW IVP SCH (09:00)
[2018-03-10] MEDS ORDERED: Aspirin 325 MG TAB PO SCH (09:00)
[2018-03-10] MEDS ORDERED: Topiramate 100 MG TAB PO SCH (09:00)
[2018-03-10] MEDS ORDERED: Famotidine 20 MG TAB PO SCH (09:00)
[2018-03-10] MEDS ORDERED: Atorvastatin Calcium 40 MG TAB PO SCH (09:00)
[2018-03-10] MEDS ORDERED: Lisinopril 20 MG TAB PO SCH ×2 (09:00)
[2018-03-10] MEDS ORDERED: levETIRAcetam 500 MG TAB PO SCH (09:00)
[2018-03-10] MEDS ORDERED: traMADol HCl 50 MG TAB PO PRN (09:48)
[2018-03-10] MEDS ORDERED: Sodium Chloride 0.9% 200 ML IV SCH (09:48)
[2018-03-10] MEDS ORDERED: Nitroglycerin 0.4 MG TAB (25 Tab Bottle) SL PRN (09:48)
[2018-03-10] MEDS ORDERED: Acetaminophen/Codeine 30-300mg Tablet PO PRN ×2 (09:48)
[2018-03-10] MEDS ORDERED: Iopamidol 370 76% 100 ML VIAL ONE (10:03)
--- NOTE | 2018-03-10 10:27 | PDOC.PN ---
- Subjective Encounter Start Date: 03/10/18 Encounter Start Time: 07:20 Patient seen and examined. No new complaints. No overnight events - Objective Resuscitation Status - Order Detail: 03/09/18 22:43 Resuscitation Status Routine Resuscitation Status: FULL: Full Resuscitation MAR Reviewed: Yes Vital Signs & Weight: Vital Signs (12 hours) Temp Pulse Resp BP BP Pulse Ox 03/10/18 08:08 97.4 F L 52 L 18 119/67 100 03/10/18 03:20 97.6 F 62 18 122/74 99 03/09/18 23:19 98.3 F 64 18 126/71 97 03/09/18 22:43 97 Weight Weight 301 lb 14.4 oz I&O: 03/09/18 03/10/18 03/11/18 06:59 06:59 06:59 Output Total 450 Balance -450 Result Diagrams: 03/10/18 02:08 03/10/18 02:08 Radiology Reviewed by me: Yes EKG Reviewed by me: Yes (nsr) Phys Exam - Physical Examination Constitutional: NAD HEENT: PERRLA, moist MMs, sclera anicteric Neck: no JVD, supple Respiratory: no wheezing, no rales, no rhonchi Cardiovascular: RRR, no significant murmur, no rub Gastrointestinal: soft, non-tender, no distention, positive bowel sounds Musculoskeletal: no edema, pulses present Neurological: non-focal, normal sensation, moves all 4 limbs Lymphatic: no nodes Psychiatric: normal affect, A&O x 3 Skin: no rash, normal turgor Dx/Plan (1) Chest pain Code(s): R07.9 - CHEST PAIN, UNSPECIFIED Status: Acute (2) Anxiety and depression Code(s): F41.9 - ANXIETY DISORDER, UNSPECIFIED; F32.9 - MAJOR DEPRESSIVE DISORDER, SINGLE EPISODE, UNSPECIFIED Status: Chronic (3) Dyslipidemia Code(s): E78.5 - HYPERLIPIDEMIA, UNSPECIFIED Status: Chronic (4) HTN (hypertension), benign Code(s): I10 - ESSENTIAL (PRIMARY) HYPERTENSION Status: Chronic (5) Morbid obesity with BMI of 45.0-49.9, adult Code(s): E66.01 - MORBID (SEVERE) OBESITY DUE TO EXCESS CALORIES; Z68.42 - BODY MASS INDEX (BMI) 45.0-49.9, ADULT Status: Chronic (6) Seizure disorder Code(s): G40.909 - EPILEPSY, UNSP, NOT INTRACTABLE, WITHOUT STATUS EPILEPTICUS Status: Chronic (7) Tobacco abuse Code(s): Z72.0 - TOBACCO USE Status: Chronic - Plan cont current plan of care * today cardiac cath * medication reviewed as below * symptomatic treatment * cardiology on case. * cath normal Review of Systems - Review of Systems ENT: negative: Ear Pain, Ear Discharge, Nose Pain, Nose Discharge, Nose Congestion, Mouth Pain, Mouth Swelling, Throat Pain, Throat Swelling, Other Respiratory: negative: Cough, Dry, Shortness of Breath, Hemoptysis, SOB with Excertion, Pleuritic Pain, Sputum, Wheezing Cardiovascular: negative: chest pain, palpitations, orthopnea, paroxysmal nocturnal dyspnea, edema, light headedness, other Gastrointestinal: negative: Nausea, Vomiting, Abdominal Pain, Diarrhea, Constipation, Melena, Hematochezia, Other Genitourinary: negative: Dysuria, Frequency, Incontinence, Hematuria, Retention , Other Musculoskeletal: negative: Neck Pain, Shoulder Pain, Arm Pain, Back Pain, Hand Pain, Leg Pain, Foot Pain, Other - Medications/Allergies Allergies/Adverse Reactions: Allergies Allergy/AdvReac Type Severity Reaction Status Date / Time venom-wasp [Wasp Venom] Allergy Severe Swollen Verified 03/10/18 00:12 Lips phenytoin sodium Allergy Verified 03/10/18 00:12 [From Dilantin] phenytoin sodium extended Allergy Verified 03/10/18 00:12 [From Dilantin] Medications: Current Medications Acetaminophen (Tylenol) 650 mg PO Q4H PRN PRN Reason: Headache/Fever/Mild Pain (1-3) Acetaminophen/Codeine Phosphate (Tylenol #3) 1 tab PO Q4H PRN PRN Reason: Mild Pain (1-3) Acetaminophen/Codeine Phosphate (Tylenol #3) 2 tab PO Q4H PRN PRN Reason: Moderate Pain (4-6) Hydrocodone Bitart/Acetaminophen ([place] 5/325) 1 tab PO Q4H PRN PRN Reason: Moderate Pain (4-6) Albuterol Sulfate (Proventil Hfa) 2 puff INH Q4H PRN PRN Reason: SOB &/or Wheezing Artificial Tears (Tears Naturale) 2 drop EA EYE PRN PRN PRN Reason: Dry Eyes Aspirin (Aspirin) 325 mg PO DAILY [facility] Atorvastatin Calcium (Lipitor) 80 mg PO DAILY [facility] Bisacodyl (Dulcolax) 10 mg PO DAILYPRN PRN PRN Reason: Constipation Calcium Carbonate (Tums) 1,000 mg PO Q4H PRN PRN Reason: Heartburn or Indigestion Clonazepam (Klonopin) 1 mg PO HS [facility] Famotidine (Pepcid) 20 mg PO BID [facility] Fluoxetine HCl (Prozac) 10 mg PO DAILY [facility] Gabapentin (Neurontin) 300 mg PO HS [facility] Guaifenesin (Robitussin Sf) 200 mg PO Q4H PRN PRN Reason: Cough Hydralazine HCl (Apresoline) 10 mg SLOW IVP Q4H PRN PRN Reason: SBP > 180 and HR < 70 Sodium Chloride (Normal Saline 0.9%) 200 mls @ 0 mls/hr IV ONE [facility] Levetiracetam (Keppra) 1,500 mg PO BID [facility] Lisinopril (Zestril) 20 mg PO DAILY [facility] Loperamide HCl (Imodium) 2 mg PO PRN PRN PRN Reason: Diarrhea/Loose Stools Loratadine (Claritin) 10 mg PO DAILYPRN PRN PRN Reason: Sinus Symptoms Metoclopramide HCl (Reglan) 5 mg IVP Q4H PRN PRN Reason: Nausea Mineral Oil/White Petrolatum (Eucerin Cream) 0 gm TOP BIDPRN PRN PRN Reason: Dry Skin Nitroglycerin (Nitrostat) 0.4 mg PO Q5MIN PRN PRN Reason: Chest Pain Nitroglycerin (Nitrostat) 0.4 mg SL Q5MIN PRN PRN Reason: Chest Pain Polyethylene Glycol (Miralax) 17 gm PO DAILY PRN PRN Reason: Constipation Senna/Docusate Sodium (Senokot S) 2 tab PO BID PRN PRN Reason: Constipation Sodium Chloride (Flush - Normal Saline) 10 ml IVF Q12HR [facility] Sodium Chloride (Flush - Normal Saline) 10 ml IVF PRN PRN PRN Reason: Saline Flush Sodium Chloride ([place] Nasal [place] 0.65%) 0 ml EA NARE QIDPRN PRN PRN Reason: Nasal Congestion Throat Lozenges (Cepastat Lozenges) 1 tacos PO Q2H PRN PRN Reason: Sore Throat Tizanidine HCl (Zanaflex) 4 mg PO HS [facility] Topiramate (Topamax) 100 mg PO BID [facility] Tramadol HCl (Ultram) 50 mg PO Q6H PRN PRN Reason: Moderate Pain (4-6) Zolpidem Tartrate (Ambien) 5 mg PO HSPRN PRN PRN Reason: Insomnia
--- NOTE | 2018-03-10 14:06 | DIS ---
DATE OF ADMISSION: 03/09/2018 DATE OF DISCHARGE: 03/10/2018 PRIMARY CARE PHYSICIAN: Ksenia Page. DISCHARGE DISPOSITION: Home. PRIMARY DISCHARGE DIAGNOSIS: Chest pain, ruled out acute coronary syndrome. SECONDARY DISCHARGE DIAGNOSES: 1. Anxiety. 2. Depression. 3. Hypertension. 4. Dyslipidemia. 5. Seizure disorder. 6. Morbid obesity with a BMI of 45. 7. Tobacco abuse disorder. PRIMARY PROCEDURE/OPERATION: Cardiac cath was done by Dr. Lindquist, which is normal. RADIOLOGICAL INVESTIGATION: Chest x-ray normal. SIGNIFICANT LABORATORY DATA: WBC 7.7, hemoglobin 13.7, platelet 213. Sodium 141, creatinine 1.23, LDL 84. Cardiac enzyme negative. LFTs normal. DISCHARGE MEDICATIONS: 1. Ventolin inhaler 2 puffs q.4 hourly p.r.n. 2. Lipitor 80 mg daily. 3. Clonazepam 1 mg p.o. at bedtime. 4. Prozac 10 mg daily. 5. Gabapentin 300 mg p.o. at bedtime. 6. Lisinopril 20 mg daily. 7. Omeprazole 40 mg daily. 8. MiraLAX 17 g p.o. daily. 9. Zanaflex 4 mg p.o. at bedtime. 10. Topiramate 100 mg b.i.d. 11. Aspirin 81 mg daily. 12. Keppra 1500 mg p.o. b.i.d. CONTRAINDICATION: None. CODE STATUS: Full code. INPATIENT ADJUSTMENT SUPERVISOR: Dr. Lindquist. TEST RESULTS PENDING ON DISCHARGE: None. ALLERGIES: DILANTIN. DISCHARGE PLAN: Posthospital, the patient will follow up with primary care physician in 1 week. HOSPITAL COURSE: A 43-year-old male with above-mentioned medical problem, who was admitted by Dr. Pickering. Please see his H and P for further details. The patient was admitted for chest pain. His initial workup was negative for any acute process. His chest x-ray was normal. His cardiac enzymes were negative. His description was also nonanginal. He had mild acute kidney injury, which was improved with fluid. He underwent cardiac catheterization and that was also unremarkable. The patient is planned for discharge to home with the above-mentioned medication. The patient is seen and examined at bedside today. Please see my progress note from today for further detail. Job ID: [id number]
--- NOTE | 2018-03-10 15:25 | CON ---
DATE OF CONSULTATION: PRIMARY CARE PROVIDER: Ms. Ksenia Page, SKYLAR, at [facility]. PRIMARY L TACKER: Dr. Asha Lindquist. REFERRING PHYSICIAN: Dr. Pickering. REASON FOR CARDIOLOGY CONSULTATION: Chest pain. HISTORY OF PRESENT ILLNESS: Mr. Baer is a 43-year-old male with a significant history of multiple cardiac arrests secondary to cocaine overdose in 2002, seizure, memory loss, hypertension, and chronic maxillary sinusitis. The patient had seen Dr. Lindquist in December 2017 for shortness of breath with sudden chest pain. The patient underwent two stress tests on February 13, 2018, which showed probable abnormal myocardial perfusion study with increased GI uptake noted with decreased uptake in the inferior wall or this may indicate inferior ischemia with EF of 50%. The patient continued having chest pain and shortness of breath, that is the reason the patient is supposed to undergo cardiac catheterization today as an outpatient. However, the patient started having intermittent chest pain for 4 days, which became worse after arguing with his father last night, so he decided to present to the emergency department for further evaluation and treatment. He continued having chest pain, which is sharp and increases with a deep breathe. He had a chest pain under breast, which radiated to his left chest and to his left neck and to his left arm and to his left flank. He also complained of dizziness, lightheadedness, shortness of breath, tingling to his left arm. The patient's echocardiogram was done in December 2017, which showed EF of 50% to 55%, mild left atrial enlargement, mild pulmonic valve regurgitation, trace mitral valve regurgitation, and trace tricuspid valve regurgitation. He had a history of multiple cardiac arrests at 2002 due to the cocaine overdose. PAST MEDICAL HISTORY: 1. Hypertension. 2. Hyperlipidemia. 3. Asthma. 4. Possible TIA. 5. Obstructive sleep apnea. 6. 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 7. Multiple cardiac arrests in 2002. 8. Chronic maxillary sinusitis. PAST SURGICAL HISTORY: 1. Tonsillectomy. 2. Anal fissure and anal sphincterotomy in July 2015. 3. Vocal cord injection in October 2017. FAMILY HISTORY: The patient's mother due to the lung cancer in January 2018. The patient's father had a medical history of congestive heart failure, diabetes, hypertension. The patient's one of the sister has a medical history of breast cancer. SOCIAL HISTORY: He is single. He has been disabled. He has 2 children, who live well. He had 2 drinks per week. He is an ex-smoker, quit in 2015 and quit dipping in 2016. He has a history of cocaine overdose. The patient's last cocaine use was 3 to 4 months ago. He lives with caregiver at home. REVIEW OF SYSTEMS: A 12-point review of systems is negative unless otherwise mentioned in the history of present illness. The patient has memory loss, seizure, and cardiac arrest secondary to cocaine abuse in 2002. PHYSICAL EXAMINATION: VITAL SIGNS: Blood pressure 122/74, heart rate 62, sinus rhythm, temperature 97.6, respiratory rate 18, O2 saturation 99% on room air. GENERAL: The patient is alert and oriented x4. He is forgetful, not in acute distress. HEENT: Head; normocephalic, atraumatic. Eyes; extraocular muscle movement intact. ENT and mouth; oral and nasal mucosa moist without lesion. NECK: No JVD. Neck is supple. Normal range of motion. LUNGS: Clear to auscultate bilaterally. No rale, rhonchi, or wheezing noted. CARDIOVASCULAR: Regular rate and rhythm. Normal S1, S2. There is no S3 or S4. No significant murmur, heaves, or thrills noted. EXTREMITIES: 2+ pulses in upper and lower extremities. No edema. Carotid pulses are present. No bruits are noted. ABDOMEN: Soft, nontender. No mass to palpate. Bowel sounds are positive. SKIN: Warm and dry. No lesion or rash. Hematoma noticed. MUSCULOSKELETAL: The patient able to move all extremities without any difficulties. The patient denied claudication. PSYCHIATRIC: The patient is very forgetful. The patient has a 24/7 caregiver but the mood is appropriate. NEUROLOGIC: The patient is alert and oriented x4. Again, the patient is very forgetful. ALLERGIES: HE IS ALLERGIC TO DILTIAZEM. HOME MEDICATIONS: 1. Keppra 1500 mg p.o. b.i.d. 2. Ventolin 2 puffs every 4 hours as needed. 3. MiraLAX 17 g daily as needed. 4. Tizanidine 4 mg every night. 5. Clonazepam 1 mg one tablet every night. 6. Fluoxetine HCL 10 mg one tablet once a day. 7. Topiramate 100 mg one tablet twice a day. 8. Lisinopril 20 mg once a day. 9. Gabapentin 300 mg one tablet at night. 10. Lipitor 80 mg once a day. 11. Omeprazole 40 mg once a day. LABORATORY DATA: WBC 7.7, hemoglobin 13.7, hematocrit 38.3, platelets 213. Sodium 141, potassium 3.6, BUN 13, creatinine 1.23, glucose 106, AST 34, ALT 33. Troponin is negative. Total cholesterol 130, triglyceride 105, HDL 25, LDL 85. ASSESSMENT AND PLAN: 1. Chest pain. The patient's stress test in January 2018 shows possible abnormal myocardial perfusion. The patient is planned to undergo a cardiac catheterization by Dr. Lindquist this morning. 2. Hypertension. The patient's vital signs are stable at this moment with current medication. 3. Hyperlipidemia. The patient is on statin. 4. History of asthma. The patient is stable with room air. 5. Epileptic seizure. The patient's condition is stable at this moment, managed by I think the primary care doctor. Thank you for allowing the Cardiology Service to participate in the care of this patient. We will follow along the patient's care team and make further recommendations as appropriate. Job ID: [id number]
[2018-03-10 16:11] VITALS: BP 106/58; TEMP 97.4
[2018-03-10] MEDS ORDERED: clonazePAM 1 MG TAB PO SCH (21:00)
[2018-03-10] MEDS ORDERED: Gabapentin 300 MG CAP PO SCH (21:00)
[2018-03-10] MEDS ORDERED: tiZANidine HCl 4 MG TAB PO SCH (21:00)
--- NOTE | 2018-03-13 08:03 | CON ---
DATE OF CONSULTATION: ADDENDUM: INDICATION FOR ADMISSION: A 43-year-old patient with history of chest pain. HISTORY OF PRESENT ILLNESS: A 43-year-old gentleman with chest pain, who recently underwent stress test. He was found to have inferior wall reversible ischemia due to his multiple admissions for chest pain. He was advised to undergo cardiac catheterization to rule out evidence of underlying coronary artery disease. He also has history of hypertension and seizure disorder. He has had history of multiple cocaine abuses. He has actually had cardiac arrest due to cocaine overdose in the past. He also has a history of noncompliance as well as alcohol abuse. He presented again yesterday evening after having a disagreement with a family member, complaining of chest pain. He says that symptoms he has head pain, which goes to the shoulder, then goes down to the leg. Yesterday, he had pain in the chest area, which radiated to the shoulder area. Given his overall history and risk factors for coronary artery disease, we will proceed with cardiac catheterization to rule out evidence for underlying coronary artery disease. PAST MEDICAL HISTORY: Significant for seizure disorder, hypertension, history of cocaine abuse, history of hypertension, history of abnormal stress test, and history of asthma. He has a history of noncompliance. FAMILY HISTORY: Please refer to the notes already dictated by the nurse practitioner. SOCIAL HISTORY: Please refer to the notes already dictated by the nurse practitioner. REVIEW OF SYSTEMS: Please refer to the notes already dictated by the nurse practitioner. MEDICATIONS: Please refer to the notes already dictated by the nurse practitioner. ALLERGIES: PLEASE REFER TO THE NOTES ALREADY DICTATED BY THE NURSE PRACTITIONER. PHYSICAL EXAMINATION: GENERAL: Reveals a well-developed, well-nourished, obese gentleman, who is in no acute distress at this time. His pain is worse when he takes a deep inspiration, but still is present even when he does not, he says. VITAL SIGNS: His blood pressure is 122/74, heart rate is 62 and regular, he is afebrile, respiratory rate is 18, and O2 saturation 99%. HEENT: Shows head to be normocephalic and atraumatic. Oral mucosa is pink and moist. NECK: Carotid pulses are present. There were no bruits. There is no JVD. The thyroid did not appear to be enlarged. CHEST: Clear to auscultation. There is no evidence of any murmurs, heaves, thrills, bruits, or rubs. ABDOMEN: Morbidly obese. Positive bowel sounds are present. EXTREMITIES: Show no clubbing, cyanosis, or edema. Pulses are present. NEUROLOGIC: The patient is intact at this time. No recent seizures. He does have short-term memory loss, but otherwise is unremarkable. DIAGNOSTIC DATA: His EKG shows a normal sinus rhythm with no acute changes noted. WBC is 7.7, hemoglobin 13.7. His potassium is 3.6, creatinine 1.23. Blood sugar was 106, HDL was 25 with LDL of 84. ASSESSMENT AND PLAN: We will plan for cardiac catheterization this morning to rule out evidence for underlying coronary artery disease, hopefully to a radial approach. I have explained to him on previous visits the risk involved to include bleeding, infection, possibility of myocardial infarction, CVA, renal insufficiency, allergic contrast reaction, and even the possibility of . He understands and agrees to proceed. We will plan for cardiac catheterization this morning. If he has had no significant stenosis or abnormalities noted, then he will be discharged home later today. Otherwise, if he needs to undergo intervention depending on the degree of the intervention required, he may still be able to go home later today or tomorrow. His cardiac enzymes, please note also the cardiac enzymes are negative for any evidence of myocardial infarction. Job ID: [id number]
== END 2018-03-10 17:12 | disposition home or self-care (01) ==
LOC: ERS 18:39 → 2SW 23:35
PROVIDERS: ADMIT Internal Medicine; ATTEND Internal Medicine
PROC: 4A023N7 Measurement of Cardiac Sampling and Pressure, Left Heart, Percutaneous Approach (ICD-10-PCS; principal; 2018-03-10)
PROC: B2111ZZ Fluoroscopy of Multiple Coronary Arteries using Low Osmolar Contrast (ICD-10-PCS; 2018-03-10)
DX: R07.9 Chest pain, unspecified (principal); I25.2 Old myocardial infarction; I11.0 Hypertensive heart disease with heart failure; I50.9 Heart failure, unspecified; J45.909 Unspecified asthma, uncomplicated; F32.9 Major depressive disorder, single episode, unspecified; F41.9 Anxiety disorder, unspecified; F12.11 Cannabis abuse, in remission; N17.9 Acute kidney failure, unspecified; G40.909 Epilepsy, unspecified, not intractable, without status epilepticus; F14.11 Cocaine abuse, in remission; F10.11 Alcohol abuse, in remission; G47.33 Obstructive sleep apnea (adult) (pediatric); J32.0 Chronic maxillary sinusitis; E66.01 Morbid (severe) obesity due to excess calories; Z68.42 Body mass index [BMI] 45.0-49.9, adult; Z87.891 Personal history of nicotine dependence; Z88.8 Allergy status to other drugs, medicaments and biological substances; Z91.038 Other insect allergy status; Z79.899 Other long term (current) drug therapy
CPT/HCPCS: 71045; 80053; 80061; 80069; 84484 ×3; 85025 ×2; 93005; 93458; 94760 ×2; 96360; 96361; 99285; C1769; G0378 ×2; 36415; 99152; J1644; J2001; J2250

== ENCOUNTER 2018-04-10 06:05 | Day surgery (SDC) | payer MEDICARE, MEDICAID ==
[2018-04-07 12:01] VITALS: BMI 43.9
[2018-04-10] MEDS ORDERED: Bacitracin Zinc Ointment 30 gm TUBE ONE (06:31)
[2018-04-10] MEDS ORDERED: Lidocaine 1% w/Epinephrine 1:100K 20 ML VIAL ONE (06:31)
[2018-04-10] MEDS ORDERED: EPINEPHrine 1 MG/ML AMP ONE (06:31)
[2018-04-10] MEDS ORDERED: Sodium Chloride 0.9% 10 ML ONE (06:32)
[2018-04-10] MEDS ORDERED: Bupivacaine HCl 0.5%/Epinephrine 1:200,000/PF 30 ml Vial ONE (06:33)
[2018-04-10] MEDS ORDERED: Bupivacaine 0.25% HCL 30 ML VIAL ONE (06:33)
[2018-04-10] MEDS ORDERED: Gelfilm 1 EA Packet ONE (06:33)
[2018-04-10] MEDS ORDERED: Fentanyl 250 MCG/5 ML VIAL ONE (06:56)
[2018-04-10] MEDS ORDERED: Midazolam HCl 2 mg/2 ml Vial ONE (06:56)
[2018-04-10] MEDS ORDERED: Fentanyl 100 MCG/2 ML VIAL ONE (08:50)
[2018-04-10] MEDS ORDERED: Promethazine HCl 25 MG/ML VIAL ONE (08:51)
--- NOTE | 2018-04-10 10:34 | OP ---
DATE OF PROCEDURE: 04/10/2018 PREOPERATIVE DIAGNOSIS: Right otosclerosis. PROCEDURES PERFORMED: 1. Right stapedectomy. 2. Microscopic surgical procedure. POSTOPERATIVE DIAGNOSIS: Right otosclerosis. ANESTHESIA: General. COMPLICATIONS: None. ESTIMATED BLOOD LOSS: None. SPECIMENS: None. ASSISTANTS: None. DISPOSITION: Stable to recovery room. SUMMARY: Basic right stapedectomy, curetted scutum. Chorda tympani intact, unmolested. Malleus and incus moved well. 4.25 Titanium Andre prosthesis was placed with good approximation, posterior one half blade removed. Keeper was not placed on the incus. PROCEDURE IN DETAIL: Procedure #1: Right stapedectomy: After informed consent was obtained, the patient was taken to the operating room, placed in supine position. General endotracheal anesthetic was administered. Table was rotated 180 degrees. Right ear was injected postauricular and transcanal with 1% lidocaine with epinephrine. Right ear was then draped and prepped in a sterile fashion. Microscope was brought into view, irrigated the ear canal with copious amounts of saline, reinjected vascular strip with 1% lidocaine with epinephrine. Postauricular and supra-auricular incision was made and carried down, harvested temporalis fascia and placed on the back table to dry. The wound was closed after irrigating with normal saline with a 3-0 Monocryl and Dermabond for the skin. Tympanomeatal flap was elevated at 12 and 6 o'clock position entered the middle ear space, and 1:1000 epinephrine was used to control bleeding. Scutum was curetted, identified the fascial nerve in pyramidal process. Malleus and incus moved well incontinuity. Blade was firmly fixed and only blue at the posterior one-third. Controller was placed in this region cut the stapedial tendon in the down fracture to stapes superstructure. With the footplate around, I was able to remove approximately 1.5 of the posterior footplate of the stapes one-half to one-third. Graft was placed over this and the prosthesis was placed with a two-hand technique. The keeper was not placed on the incus. There was excellent to keep the prothesis in place and with a long portion of the keeper had been difficult to elevate it superiorly around the graft. Flap was placed down. Gelfoam was placed on the incision, bacitracin filled the canal. Cotton ball was applied. Procedure #2: Microscopic surgical procedure: Throughout the entirety of the operation, microscope was interval part of the procedure using 2 to 14 power and high illumination. The patient tolerated these procedure well, turned over to anesthesia in a stable condition. Job ID: [id number]
[2018-04-10] MEDS ORDERED: HYDROcodone/Acetaminophen 5/325 mg Tablet ONE (10:52)
[2018-04-10] MEDS ORDERED: Glycopyrrolate 0.2 MG/ML 5 ML SYRINGE ONE (16:51)
[2018-04-10] MEDS ORDERED: Lidocaine 1% PF 5 ML VIAL ONE (16:51)
[2018-04-10] MEDS ORDERED: Rocuronium Bromide 10 MG/ML (10ML VIAL) ONE (16:51)
[2018-04-10] MEDS ORDERED: PROPOFOL 200 MG/20 ML VIAL ONE (16:51)
[2018-04-10] MEDS ORDERED: Dexamethasone 20 MG/5 ML VIAL ONE (16:51)
[2018-04-10] MEDS ORDERED: Ondansetron PF 4 MG/2 ML Vial ONE (16:51)
== END 2018-04-10 11:04 | disposition home or self-care (01) ==
LOC: SDC 06:05
PROVIDERS: ATTEND Otolaryngology Otology & Neurotology
PROC: 09B Ear, Nose, Sinus, Excision (ICD-10-PCS; principal; 2018-04-10)
DX: H80.91 Unspecified otosclerosis, right ear (principal); J45.909 Unspecified asthma, uncomplicated; G47.33 Obstructive sleep apnea (adult) (pediatric); G40.909 Epilepsy, unspecified, not intractable, without status epilepticus; I10 Essential (primary) hypertension; Z86.73 Personal history of transient ischemic attack (TIA), and cerebral infarction without residual deficits; Z87.891 Personal history of nicotine dependence; Z91.030 Bee allergy status; Z88.8 Allergy status to other drugs, medicaments and biological substances; Z79.82 Long term (current) use of aspirin; Z79.899 Other long term (current) drug therapy; Z98.890 Other specified postprocedural states
CPT/HCPCS: J0171; J0670; J1100; J2001; J2250; J2405; J2550; J2704; J3010; J3490; S0020

== ENCOUNTER 2018-05-05 18:31 | Emergency (ER) | payer MEDICARE, MEDICAID ==
[2018-05-05] MEDS ORDERED: Ondansetron ODT 8 MG TAB ONE (20:29)
[2018-05-05 20:56] LABS: #Basophils 0.1 thou/uL (0.0-0.2); #Eosinphils 0.1 thou/uL (0.0-0.7); #Lymphocytes 2.7 thou/uL (1.20-3.40); #Monocytes 0.8 thou/uL (0.11-0.59); #Neutrophils 5.7 thou/uL (1.40-6.50); %Basophils 0.9 % (0.0-1.0); %Eosinophils 0.7 % (0.0-10.0); %Lymphocytes 28.5 % (21.0-51.0); %Monocytes 8.5 % (0.0-10.0); %Neutrophils 61.3 % (42.0-75.0); Hemoglobin 14.3 g/dL (14.0-18.0); Mean Corpuscular Hemoglobin 30.6 pg (27.0-31.0); Mean Corpuscular Volume 92.7 fL (78.0-98.0); Mean Platelet Volume 7.5 fL (7.4-10.4); Platelet Count 241 thou/uL (130-400); Red Blood Cell (RBC) Count 4.67 mill/uL (4.70-6.10); White Blood Cell (WBC) Count 9.3 thou/uL (4.8-10.8)
[2018-05-05 21:17] LABS: ALT (SGPT) 57 U/L (8-55); AST (SGOT) 105 U/L (5-34); Albumin 4.3 g/dL (3.5-5.0); Alkaline Phosphatase 127 U/L (40-150); Anion Gap 15 mmol/L (10-20); BUN (Urea Nitrogen) 11 mg/dL (8.9-20.6); Bilirubin, Total 0.8 mg/dL (0.2-1.2); Calc. Creatinine Clearance 0 mL/min (70-130); Calcium 9.3 mg/dL (7.8-10.44); Carbon Dioxide 20 mmol/L (22-29); Chloride 107 mmol/L (98-107); Estimated GFR-MDRD 63; Globulin 2.7 g/dL (2.4-3.5); Glucose 92 mg/dL (70-105); Lipase 27 U/L (8-78); Potassium 3.8 mmol/L (3.5-5.1); Sodium 138 mmol/L (136-145)
== END 2018-05-05 22:06 | disposition home or self-care (01) ==
LOC: ERS 18:31
DX: R11.2 Nausea with vomiting, unspecified (principal); Z86.73 Personal history of transient ischemic attack (TIA), and cerebral infarction without residual deficits; J45.909 Unspecified asthma, uncomplicated; I11.0 Hypertensive heart disease with heart failure; I50.9 Heart failure, unspecified; I25.2 Old myocardial infarction; F41.9 Anxiety disorder, unspecified; F32.9 Major depressive disorder, single episode, unspecified; F17.220 Nicotine dependence, chewing tobacco, uncomplicated; Z79.899 Other long term (current) drug therapy
CPT/HCPCS: 36415; 80053; 83690; 85025; 93005

== ENCOUNTER 2018-07-19 22:12 | Emergency (ER) | payer MEDICARE, MEDICAID ==
[2018-07-19] MEDS ORDERED: Adacel (T-DAP) 0.5 ML SYRINGE ONE (23:26)
--- NOTE | 2018-07-19 23:44 | RAD ---
3 views right hand. HISTORY: Bit by stray dog. AP, lateral and oblique views right hand obtained. 3 views right hand demonstrate no evidence of a right hand fractures, subluxations or bony lesions. IMPRESSION: Normal 3 views right hand.
[2018-07-19] MEDS ORDERED: Rabies Vaccine Human 2.5 UNITS VIAL IM ONE (23:59)
== END 2018-07-20 01:37 | disposition home or self-care (01) ==
LOC: ERS 22:12
DX: S61.451A Open bite of right hand, initial encounter (principal); F41.9 Anxiety disorder, unspecified; F32.9 Major depressive disorder, single episode, unspecified; I11.0 Hypertensive heart disease with heart failure; I50.9 Heart failure, unspecified; J45.909 Unspecified asthma, uncomplicated; Z71.6 Tobacco abuse counseling; Z86.73 Personal history of transient ischemic attack (TIA), and cerebral infarction without residual deficits; Z87.891 Personal history of nicotine dependence; W54.0XXA Bitten by dog, initial encounter
CPT/HCPCS: 90376; 90471; 90472; 90675; 90715; 96372; 99406

== ENCOUNTER 2018-09-07 09:16 | Observation (INO) | payer MEDICARE, MEDICAID ==
[2018-09-07 09:51] LABS: #Basophils 0.1 thou/uL (0.0-0.2); #Eosinphils 0.1 thou/uL (0.0-0.7); #Lymphocytes 2.5 thou/uL (1.20-3.40); #Monocytes 0.8 thou/uL (0.11-0.59); #Neutrophils 3.9 thou/uL (1.40-6.50); %Eosinophils 1.3 % (0.0-10.0); %Lymphocytes 33.7 % (21.0-51.0); %Monocytes 10.8 % (0.0-10.0); %Neutrophils 53.2 % (42.0-75.0); Hemoglobin 14.7 g/dL (14.0-18.0); Mean Corpuscular HGB CONC 34.2 g/dL (32.0-36.0); Mean Corpuscular Hemoglobin 31.5 pg (27.0-31.0); Mean Corpuscular Volume 92.1 fL (78.0-98.0); Mean Platelet Volume 7.5 fL (7.4-10.4); Platelet Count 242 thou/uL (130-400); RBC Distribution Width 11.9 % (11.5-14.5); Red Blood Cell (RBC) Count 4.66 mill/uL (4.70-6.10); White Blood Cell (WBC) Count 7.3 thou/uL (4.8-10.8)
[2018-09-07 10:12] LABS: ALT (SGPT) 36 U/L (8-55); AST (SGOT) 32 U/L (5-34); Albumin 4.3 g/dL (3.5-5.0); Alkaline Phosphatase 136 U/L (40-150); Anion Gap 13 mmol/L (10-20); BUN (Urea Nitrogen) 15 mg/dL (8.9-20.6); Bilirubin, Total 0.9 mg/dL (0.2-1.2); Calc. Creatinine Clearance 0 mL/min (70-130); Calcium 9.1 mg/dL (7.8-10.44); Carbon Dioxide 21 mmol/L (22-29); Chloride 105 mmol/L (98-107); Estimated GFR-MDRD 58; Globulin 2.9 g/dL (2.4-3.5); Glucose 97 mg/dL (70-105); Potassium 3.7 mmol/L (3.5-5.1); Protein, Total 7.2 g/dL (6.0-8.3); Sodium 135 mmol/L (136-145)
--- NOTE | 2018-09-07 10:34 | CT ---
CT Brain WO Con: 09/07/2018 10:15 AM CLINICAL HISTORY: Left upper extremity weakness. COMPARISON: 08/08/2017 FINDINGS: Hemorrhage: None. Ventricular system: Normal in size and morphology for the patient's age. Cerebral parenchyma: Normal. Mild cerebellar parenchymal atrophy. Midline shift: None. Mass: No mass effect. Calvarium: Normal. Visualized Paranasal sinuses: Clear. IMPRESSION: No acute intracranial abnormalities. Mild cerebellar parenchymal atrophy.
[2018-09-07] MEDS ORDERED: Ondansetron PF 4 MG/2 ML Vial ONE (10:40)
[2018-09-07 12:23] LABS: Bilirubin Negative (Negative); Blood, Urine Negative (Negative); Glucose, Urine (Dipstick) Negative (Negative); Leukocyte Negative (Negative); Nitrite Negative (Negative); Protein, Urine (Dipstick) Negative (Neg-Trace); Urobilinogen 0.2 mg/dL (Less than 2)
[2018-09-07 12:25] LABS: Clarity Clear (Clear)
--- NOTE | 2018-09-07 13:00 | RAD ---
CHEST 1 VIEW: Date: 09/07/18 HISTORY: Vomiting and diarrhea for 1 week. Possible seizure. COMPARISON: 03/09/18. FINDINGS: Heart size is within upper range of normal limits. No confluent pneumonia, overt edema, pleural effus ion, or other acute process. IMPRESSION: No significant acute intrathoracic disease. Stable from prior study. POS: [facility]
[2018-09-07] MEDS ORDERED: Aspirin Chewable 81 MG TAB ONE (13:40)
[2018-09-07] MEDS ORDERED: methylPREDNISolone Sod Succ/PF 125 MG/2 ML VIAL ONE (13:56)
[2018-09-07] MEDS ORDERED: diphenhydrAMINE 50 MG/ML VIAL ONE (13:56)
[2018-09-07] MEDS ORDERED: methylPREDNISolone Sod Succ/PF 125 MG/2 ML VIAL IVP SCH (14:00)
[2018-09-07] MEDS ORDERED: Acetaminophen 325 MG TAB PO PRN (15:43)
[2018-09-07] MEDS ORDERED: hydrALAZINE 20 MG/ML VIAL SLOW IVP PRN (15:43)
[2018-09-07] MEDS ORDERED: Albuterol Sulfate 1.25 MG/3 ML NEB NEB PRN (15:47)
[2018-09-07] MEDS ORDERED: Metoclopramide HCl 10 MG/2 ML VIAL IVP PRN (16:00)
[2018-09-07 16:42] LABS: Amphetamine Not Detected (NotDetected); Barbiturates Screen Not Detected (NotDetected); Benzodiazepine Screen Not Detected (NotDetected); Cocaine Metabolite Screen Not Detected (NotDetected); Medtox Control Line Valid? VALID (VALID); Medtox Reader # READER 1; Methadone Not Detected (NotDetected); Methamphetamine Not Detected (NotDetected); Opiate Screen Not Detected (NotDetected); Oxycodone Screen Not Detected (NotDetected); Phencyclidine (PCP) Not Detected (NotDetected); THC/Cannabinoid Screen Not Detected (NotDetected); Tricyclic Screen Not Detected (NotDetected)
--- NOTE | 2018-09-07 16:46 | HP ---
PRIMARY CARE PHYSICIAN: Dr. Page at [facility]. CHIEF COMPLAINT: Cramping. HISTORY OF PRESENT ILLNESS: This is a 43-year-old male with history of coronary disease and MO, heart failure per chart review, seizures, short-term memory loss , hypertension, depression, who presents to the emergency room with a complaint of cramping all over, nausea, vomiting, and diarrhea. History is obtained from both the patient as well as his caregiver. They report that over the past six days, he has had multiple episodes of vomiting, and diarrhea that is nonbloody. Yesterday, he was feeling a little bit better and worked outside helping a friend, and notes that he became dehydrated. In addition, the patient reports his tongue was swelling for a few minutes that resolved with time and slowing his breathing down. However, he complains of cramping all over, difficulty sleeping last night, and this morning his caregiver reports he has "looked pretty bad." He describes that he was flushed, complaining of chest pain, his hands and feet were numb, he is complaining of neck pain as well. The patient also was complaining of left-sided weakness, difficulty with his speech in terms of stuttering and generally pronouncing words. Thus far today, the patient has had 2 episodes of vomiting, and 4 episodes of diarrhea, and given the symptoms that were persistent, he presented to the emergency room. In the ER, the patient has received normal saline x2 L, Zofran 4 mg IV, aspirin 324 mg, Benadryl 25 mg IV, methylprednisolone 125 mg IV, and hospitalist called for admission. ALLERGIES: TO DILANTIN. CURRENT MEDICATIONS: Reconciled with the bottles; 1. Atorvastatin 80 mg at bedtime. 2. Lisinopril 20 mg daily. 3. Omeprazole 40 mg daily. 4. Topiramate 100 mg b.i.d. 5. Clonazepam 1 mg at bedtime. 6. Keppra 750 mg tablets 2 tablets b.i.d. 7. Gabapentin 300 mg at bedtime. 8. Fluoxetine 20 mg daily. 9. Tizanidine 4 mg at bedtime. 10. Fluticasone nasal spray as needed. 11. Ventolin inhaler as needed. 12. Ondansetron 4 mg as needed. PAST MEDICAL HISTORY: Significant for; 1. Heart failure per chart review and coronary disease with history of MO x3. 2. TIA. 3. Hypertension. 4. Asthma. 5. Seizures and short-term memory loss. 6. A CPR in 2001 documented secondary to cocaine overdose. 7. Depression. 8. Chronic kidney disease stage 2. FAMILY HISTORY: Significant for heart disease. PAST SURGICAL HISTORY: 1. Tonsillectomy. 2. Ear and sinus surgery. 3. Vocal cord surgery. 4. Rectal surgery. SOCIAL HISTORY: The patient denies any current tobacco, alcohol, or other drug use. His surrogate decision maker is Edwina Thao, he lives at home and has a caregiver. Per chart review, there is a history of cocaine, marijuana, and alcohol. REVIEW OF SYSTEMS: Positive for headaches the patient reports over the past few months, shortness of breath, vomiting, diarrhea, chest pain earlier today, blurry vision, lightheadedness and dizziness and weakness, specifically on his left side. All remaining review of systems are reviewed and negative. PHYSICAL EXAMINATION: VITAL SIGNS: His blood pressure 117/60, pulse 57, respirations 16, sats 99% on room air, and temperature 98.4. GENERAL: The patient is awake, alert, and responsive. He is not in apparent distress. HEENT: Pupils are equal, round, and reactive to light. No scleral icterus. Extraocular movements are intact. Oral mucosa is pink and dry. NECK: Supple, nontender. LYMPHATICS: No palpable cervical or supraclavicular lymphadenopathy. LUNGS: Clear to auscultation bilateral. No audible wheezing, rhonchi, or rales. HEART: Normal S1, S2. Regular rate and rhythm. No significant murmur. ABDOMEN: Soft with present bowel sounds. Tenderness to palpation along the left side. No rebound or guarding, and no palpable abnormalities. EXTREMITIES: No pitting edema, clubbing, or cyanosis. NEUROLOGIC: Cranial nerves 2 through 12 are intact. His speech is slowed, however, is congruent. Upper and lower extremities strength is 5/5 equal bilateral. No ankle clonus. Reflexes unable to elicit at the patellar, biceps, and brachioradialis. SKIN: No visible rashes. PSYCH: Euthymic, alert & oriented to person/place/situation, time was not tested. VASCULAR: 2+ dorsalis pedis pulses. LABORATORY DATA: Labs are personally reviewed. CBC; 7.3, 14.7, 42.9, 242. Chemistry; 135, 3.7, 105, 21, 15, 1.34, 58. Calcium 9.1, magnesium is 2.0. LFTs are normal. CK is 476. Troponin x2 are negative. EKG is personally reviewed, sinus rhythm. No ST changes. The rate is 63, a QT corrected of 474, normal axis, and an incomplete right bundle-branch block. Chest x-ray is personally reviewed, shows no significant acute intrathoracic disease, and stable from prior study in February. CT of the brain without contrast, no acute intracranial abnormalities and mild cerebellar parenchymal atrophy. IMPRESSION: 1. Generalized weakness left > right, in association with nausea, vomiting, diarrhea, and poor p.o. intake. 2. Dehydration secondary to above. 3. Chronic kidney disease stage 2 with very slight worsening today. 4. Headaches. 5. Seizure disorder and short-term memory changes, history of transient ischemic attack. 6. Coronary disease with history of myocardial infarction. 7. Asthma, stable, o signs of exacerbation. 8. Depression. 9. Prolonged QT interval 10. Morbid obesity PLAN: 1. Observation status in the hospital. 2. IV fluid hydration. 3. Monitoring on telemetry. We will obtain echocardiogram as the patient's presentation to the ER was concerning for a TIA. We will also obtain a carotid ultrasound. We will hold on the MRI for now and determine if the patient does have any focal deficits that warrant MRI tomorrow. 4. For the nausea and vomiting, given a slightly prolonged QT interval, we will order Reglan as needed. Stool studies and IV fluid hydration. 5. Monitoring his renal function. 6. Continuing his antiepileptic medications as well as his additional medicines of clonazepam, gabapentin, fluoxetine, and tizanidine. 7. Continuing statin as well as a full-dose daily aspirin. 8. Holding his lisinopril for now, add back as his blood pressures are elevated provided his renal function is stable. 9. Will order prn albuterl 10. Check TSH in the morning 11. If the diarrhea persists, consider CT abdomen and pelvis with oral contrast given the tenderness on the left side. We will hold on this for now and monitor his symptoms and hydrate. 12. DVT prophylaxis with pneumatic compression devices. 13. GI prophylaxis not indicated. The patient is on a PPI at home, we will continue that. 14. Code status is full and surrogate decision maker as above. Reviewed the plan of care with the patient and his caregiver. No questions or further needs at the end of evaluation. The patient is at high risk given age comorbidities and current presentation. Job ID: [id number] [facility]
[2018-09-07 17:09] LABS: Phosphorus 1.9 mg/dL (2.3-4.7)
[2018-09-07 17:14] VITALS: BMI 45.9
[2018-09-07] MEDS: NS 0.9% w/ 20 MEQ KCL 1,000 ML/1,000 ML BAG IV SCH (19:39)
[2018-09-07] MEDS: K-Phos Neutral 250 MG TAB PO SCH ×2 (19:39→23:50)
--- NOTE | 2018-09-07 21:16 | ULT ---
BILATERAL CAROTID DOPPLER DUPLEX ULTRASOUND: 09/07/18 HISTORY: TIA. TECHNIQUE: Pate scale ultrasound with color flow and spectral Doppler imaging of the extracranial carotid artery systems is performed bilaterally. FINDINGS: No plaque formation is seen on either side. The peak systolic velocity in the right ICA measures 76 cm/s with an end diastolic velocity of 24 cm/ s and systolic ratio of 0.56. The peak systolic velocity in the left ICA measures 74 cm/s with an end diastolic velocity of 29 cm/s and systolic ratio of 0.49. Flow in both vertebral arteries remain antegrade. IMPRESSION: No evidence of hemodynamically significant stenosis. POS: [facility]
[2018-09-07] MEDS ORDERED: K-Phos Neutral 250 MG TAB PO SCH (23:30)
[2018-09-07] MEDS: Topiramate 100 MG TAB PO SCH (23:48)
[2018-09-07] MEDS: Gabapentin 300 MG CAP PO SCH (23:50)
[2018-09-07] MEDS: clonazePAM 0.5 MG TAB PO SCH (23:50)
[2018-09-07] MEDS: Atorvastatin Calcium 40 MG TAB PO SCH (23:50)
[2018-09-07] MEDS: levETIRAcetam 500 MG TAB PO SCH (23:51)
[2018-09-07] MEDS: tiZANidine HCl 4 MG TAB PO SCH (23:51)
[2018-09-08 05:08] LABS: #Lymphocytes 1.4 thou/uL (1.20-3.40); #Monocytes 0.6 thou/uL (0.11-0.59); #Neutrophils 14.3 thou/uL (1.40-6.50); %Basophils 0.1 % (0.0-1.0); %Eosinophils 0.1 % (0.0-10.0); %Lymphocytes 8.7 % (21.0-51.0); %Monocytes 3.9 % (0.0-10.0); %Neutrophils 87.3 % (42.0-75.0); Hemoglobin 13.2 g/dL (14.0-18.0); Mean Corpuscular HGB CONC 31.6 g/dL (32.0-36.0); Mean Corpuscular Hemoglobin 29.8 pg (27.0-31.0); Mean Corpuscular Volume 94.2 fL (78.0-98.0); Mean Platelet Volume 7.6 fL (7.4-10.4); Platelet Count 247 thou/uL (130-400); RBC Distribution Width 11.8 % (11.5-14.5); Red Blood Cell (RBC) Count 4.43 mill/uL (4.70-6.10); White Blood Cell (WBC) Count 16.4 thou/uL (4.8-10.8)
[2018-09-08 05:32] LABS: Anion Gap 9 mmol/L (10-20); BUN (Urea Nitrogen) 12 mg/dL (8.9-20.6); Calc. Creatinine Clearance 188 mL/min (70-130); Calcium 8.9 mg/dL (7.8-10.44); Carbon Dioxide 24 mmol/L (22-29); Chloride 109 mmol/L (98-107); Cholesterol 135 mg/dl (< 200 Desired); Estimated GFR-MDRD 83; Glucose 165 mg/dL (70-105); HDL Cholesterol 27 mg/dL (>60 Neg Risk); LDL Cholesterol, Calculated 93 mg/dL; Sodium 137 mmol/L (136-145); Triglycerides 75 mg/dL (Less than 150)
[2018-09-08 05:39] LABS: Phosphorus 2.4 mg/dL (2.3-4.7)
[2018-09-08] MEDS: NS 0.9% w/ 20 MEQ KCL 1,000 ML/1,000 ML BAG IV SCH (05:53)
[2018-09-08] MEDS: levETIRAcetam 500 MG TAB PO SCH ×2 (10:19→22:16)
[2018-09-08] MEDS: FLUoxetine HCl 20 MG CAP PO SCH (10:19)
[2018-09-08] MEDS: Topiramate 100 MG TAB PO SCH ×2 (10:19→22:13)
[2018-09-08] MEDS: Sodium Chloride 0.45% 1,000 ML IV SCH ×2 (10:20→23:39)
[2018-09-08] MEDS: Aspirin 325 mg Enteric Coated Tablet PO SCH (10:20)
--- NOTE | 2018-09-08 12:58 | CON ---
DATE OF CONSULTATION: 09/08/2018 CONSULTING PHYSICIAN: Hospitalist Service. IMPRESSION: Probable focal seizure activity versus psychogenic complaints. PLAN: 1. Continue Keppra. 2. EEG. HISTORY OF PRESENT ILLNESS: Mr. Baer is a 43-year-old man with a past history of possible seizure activity. He came in with complaints of spasms on the left side of the body associated with some numbness. He reports the numbness is waxing and waning. His CT scan of the brain was unremarkable. His carotid ultrasound was clear. He reports some intermittent tingling of all 4 extremities. PHYSICAL EXAMINATION: GENERAL: On exam, he is alert and appropriate. NEUROLOGIC: His speech is fluent and clear. He has no focal deficits. No abnormal movements are seen. SUMMARY: This gentleman has a history of some psychiatric issues, and I would not certain as to whether there is any organic basis to his complaints. He has no evidence of a stroke. I will check an EEG since he is symptomatic. Continue his Keppra at 1500 mg twice a day. He can be followed up in the office. Job ID: [id number]
--- NOTE | 2018-09-08 20:14 | PRG ---
DATE OF SERVICE: 09/08/2018 SUBJECTIVE: A 43-year-old male with coronary artery disease, seizure disorder, hypertension, and depression, was brought into the emergency room with generalized cramping along with nausea, vomiting, and diarrhea. Nausea and vomiting have significantly improved. He denies any abdominal pain at this time. No fever or chills reported. REVIEW OF SYSTEMS: The patient denies any chest pain, shortness of breath, or palpitations. CURRENT MEDICATIONS: Reviewed. The patient has been started on IV fluids. He also takes aspirin, Lipitor, Klonopin, Prozac, Neurontin, as well as potassium phosphate, Topamax 100 mg b.i.d., Protonix, and Zanaflex. OBJECTIVE: VITAL SIGNS: Temperature 97.6, pulse 69, respirations 18, blood pressure 121/55, and O2 saturation 98% on room air. GENERAL: A 43-year-old male, in no apparent distress. LUNGS: Clear to auscultation bilaterally. No wheezing, rales, or rhonchi. HEART: S1 and S2, present. Regular rate and rhythm. No rubs or gallops. ABDOMEN: Soft. Mild generalized tenderness. No rebound or guarding. No costovertebral angle tenderness. EXTREMITIES: No edema or calf tenderness. NEUROLOGIC: No new focal deficit. PSYCHIATRIC: Alert and awake. PERIPHERAL VASCULAR: Radial pulses palpable bilaterally. MUSCULOSKELETAL: No joint swelling or tenderness. LABORATORY FINDINGS: WBC 16.4, with hemoglobin 13.2. Phosphorus 1.9. TSH was 0.8. Troponin was negative. Potassium is 5.0 from 3.7. Urine drug screen was negative. Stool for C diff was not done due to formed stool. Carotid Doppler was negative for hemodynamically significant stenosis. Chest x-ray by my review was negative for infiltrate. EKG by my review showed sinus rhythm. IMPRESSION: 1. Generalized weakness, left more than right, associated with nausea, vomiting, diarrhea, and poor oral intake. Etiology unclear. The patient was seen by Dr. Rosas, who thinks the patient may be having focal seizure versus psychogenic complaint. 2. Dehydration. 3. Hypophosphatemia. 4. Acute kidney injury on chronic kidney disease, stage 2. 5. Seizure disorder. 6. History of short-term memory loss. 7. History of transient ischemic attack in the past. 8. Coronary artery disease, status post myocardial infarction. 9. Asthma, mild intermittent. 10. Depression, mild, stable. 11. Morbid obesity with a BMI of 45.9. PLAN: IV fluids will be continued. We will change IV fluid to half NS. We will recheck labs in a.m. Continue phosphorus replacement. EEG has been ordered by Neurology. Stool for Giardia and E coli has been sent and pending at this time. We will repeat CK in a.m. His CK was elevated at 476 on admission. Stroke Team has been consulted. Plan was discussed with the patient and the caregiver in detail. Job ID: [id number]
[2018-09-08] MEDS: tiZANidine HCl 4 MG TAB PO SCH (22:13)
[2018-09-08] MEDS: Atorvastatin Calcium 40 MG TAB PO SCH (22:14)
[2018-09-08] MEDS: clonazePAM 0.5 MG TAB PO SCH (22:15)
[2018-09-08] MEDS: Gabapentin 300 MG CAP PO SCH (22:17)
[2018-09-09 05:17] LABS: #Basophils 0.1 thou/uL (0.0-0.2); #Eosinphils 0.1 thou/uL (0.0-0.7); #Lymphocytes 3.4 thou/uL (1.20-3.40); #Monocytes 0.7 thou/uL (0.11-0.59); #Neutrophils 4.6 thou/uL (1.40-6.50); %Basophils 0.8 % (0.0-1.0); %Eosinophils 1.1 % (0.0-10.0); %Lymphocytes 38.7 % (21.0-51.0); %Monocytes 7.5 % (0.0-10.0); Hemoglobin 13.8 g/dL (14.0-18.0); Mean Corpuscular HGB CONC 32.4 g/dL (32.0-36.0); Mean Corpuscular Hemoglobin 30.7 pg (27.0-31.0); Mean Corpuscular Volume 94.8 fL (78.0-98.0); Mean Platelet Volume 7.8 fL (7.4-10.4); Platelet Count 225 thou/uL (130-400); RBC Distribution Width 12.2 % (11.5-14.5); White Blood Cell (WBC) Count 8.8 thou/uL (4.8-10.8)
[2018-09-09 05:50] LABS: Albumin 3.7 g/dL (3.5-5.0); Anion Gap 11 mmol/L (10-20); BUN (Urea Nitrogen) 13 mg/dL (8.9-20.6); CK (CPK) 181 U/L (30-200); Calc. Creatinine Clearance 186 mL/min (70-130); Calcium 8.6 mg/dL (7.8-10.44); Carbon Dioxide 22 mmol/L (22-29); Chloride 111 mmol/L (98-107); Estimated GFR-MDRD 82; Glucose 116 mg/dL (70-105); Phosphorus 3.4 mg/dL (2.3-4.7); Potassium 4.1 mmol/L (3.5-5.1); Sodium 140 mmol/L (136-145)
[2018-09-09 07:50] VITALS: BP 128/60; TEMP 97.9
[2018-09-09] MEDS: Topiramate 100 MG TAB PO SCH (10:05)
[2018-09-09] MEDS: Aspirin 325 mg Enteric Coated Tablet PO SCH (10:05)
[2018-09-09] MEDS: FLUoxetine HCl 20 MG CAP PO SCH (10:06)
[2018-09-09] MEDS: levETIRAcetam 500 MG TAB PO SCH (10:12)
--- NOTE | 2018-09-09 21:40 | DIS ---
DATE OF ADMISSION: 09/07/2018 DATE OF DISCHARGE: 09/09/2018 CONSULTANTS: Dr. Rosas of Neurology. PRIMARY CARE PROVIDER: Ksenia Page. MEDICATIONS: Reconciled at discharge. Discontinued medications: 1. lisinopril due to having normal blood pressures on admission as well as having normal blood pressures through this admission. 2. Ondansetron discontinued because the patient has a prolonged QT interval. New medications: 1. Reglan 5 mg 4 times daily as needed for nausea, vomiting. Medications to resume: 1. Aspirin 81 mg daily. 2. Lipitor 80 mg daily. 3. Fluoxetine 10 mg daily. 4. Fluticasone nasal spray as needed. 5. Gabapentin 300 mg at bedtime. 6. Omeprazole 40 mg daily. 7. Polyethylene glycol 17 g daily as needed. 8. Topiramate 100 mg b.i.d. 9. Ventolin inhaler 2 puffs every 4 hours as needed. 10. Clonazepam 1 mg one tablet at bedtime. 11. Keppra 1500 mg b.i.d. 12. Tizanidine 4 mg at bedtime. FINAL DIAGNOSES: 1. Weakness secondary to dehydration, improved. 2. Possible focal seizures, will need further evaluation in the outpatient setting. 3. Chronic kidney disease stage 2, improved. 4. Prolonged QT interval. SECONDARY DIAGNOSES: 1. Headaches. 2. Coronary artery disease with history of myocardial infarction. 3. Asthma, stable. 4. Depression. 5. Morbid obesity. HISTORY OF PRESENT ILLNESS: Mr. Baer is a 43-year-old male with the above medical problems, who presented to the emergency room with a complaint of cramping all over, nausea, vomiting, and diarrhea. Please see history and physical for more details. HOSPITAL COURSE: The patient was hydrated with IV fluids throughout this hospitalization. His phosphorus level was found to be low and this was replaced orally. His lisinopril was held due to normal blood pressures which have remained normal throughout this hospitalization. He was evaluated with a stroke protocol which included an ultrasound of his carotids and that is normal. He was evaluated by Dr. Rosas, who wanted to further evaluate with an EEG for possible focal seizures, however, that is not available this week. Dr. Rosas will see the patient and order this in the outpatient setting. Because of a low suspicion for stroke, an echo and MRI were not performed. The patient overall is feeling better, ambulating without difficulty, his blood pressure has been normal without the lisinopril, and he does meet criteria for discharge to home. Because of the prolonged QT interval, the ondansetron has been stopped and we will order as needed Reglan. I am also stopping the lisinopril for normal blood pressures here. The patient encouraged to remain hydrated when he is outdoors with Pedialyte and/or an electrolyte replacement, which includes juice without any added sugar, Gatorade or Powerade. PHYSICAL EXAMINATION: VITAL SIGNS: On day of discharge, blood pressure 128/60, temperature 97.9, pulse 67, respirations 16, and sats 97% on room air. GENERAL: Awake, alert, responsive, in no apparent distress. Able to speak in full sentences. LUNGS: Clear to auscultation bilateral with good air movement. HEART: Normal S1 and S2. Regular rate and rhythm. No significant murmur. ABDOMEN: Soft with present bowel sounds. Nontender. Nondistended. EXTREMITIES: No pitting edema, clubbing, or cyanosis. NEUROLOGICAL: No focal deficits. HENDRIX FINDINGS AND TEST RESULTS: Renal panel today; 140, 4.1, 111, 22, 13, 1.0, 116. Phosphorus is 3.4, calcium 8.6. CK 181. Albumin 3.7. Triglycerides 75, cholesterol 135, LDL 93, HDL 27. Troponins x3 were negative. TSH is 0.8116. Carotid ultrasound performed on 09/07, no evidence of hemodynamically significant stenosis. Chest x-ray on 09/07, no significant acute intrathoracic disease. Brain CT on 09/07, no acute intracranial abnormalities. Mild cerebellar parenchymal atrophy. PENDING TESTS: Giardia stool test DIET: Heart healthy. ACTIVITY: As tolerated. CODE STATUS: Full DISCHARGE DISPOSITION: Home FOLLOWUP: 1. Follow up with Ksenia Page, family nurse practitioner as scheduled on Tuesday, 09/12, to discuss the lisinopril and when and if to resume it, as well as obtain the results of the Giardia test that are not available here. 2. Follow up with Dr. Rosas, recommend the patient or his caregiver to call the office on Tuesday to schedule both the EEG and an outpatient visit. Reviewed this hospitalization with the patient and his caregiver, the importance of followup. There were no questions or further needs at end of evaluation. TIME SPENT: Total time coordinating discharge is 35 minutes. Job ID: [id number] MTDD
== END 2018-09-09 11:25 | disposition home or self-care (01) ==
LOC: ERS 09:16 → ERHOLD 13:46 → 2SE 17:08
PROVIDERS: ADMIT Internal Medicine; ATTEND Internal Medicine
DX: E86.0 Dehydration (principal); N18.3 Chronic kidney disease, stage 3 (moderate); I25.10 Atherosclerotic heart disease of native coronary artery without angina pectoris; J45.909 Unspecified asthma, uncomplicated; F32.9 Major depressive disorder, single episode, unspecified; I50.9 Heart failure, unspecified; E66.01 Morbid (severe) obesity due to excess calories; Z68.42 Body mass index [BMI] 45.0-49.9, adult; Z79.82 Long term (current) use of aspirin; Z79.899 Other long term (current) drug therapy; Z87.891 Personal history of nicotine dependence
CPT/HCPCS: 70450; 71045; 80048; 80053; 80061; 80069; 80306; 81003; 82550 ×2; 83735; 84100 ×2; 84443; 84484 ×2; 85025 ×3; 86674; 87081; 93005; 93880; 96361 ×4; 96374; 96375; 97116; 97139 ×4; 99285; G0378 ×4; 36415; J1200; J2405; J2930; J3480

== ENCOUNTER 2018-11-29 04:16 | Inpatient (IN) | payer MEDICARE, MEDICAID ==
[2018-11-29] MEDS ORDERED: Lorazepam 2 MG/ML VIAL ONE ×4 (04:24→06:32)
[2018-11-29 04:53] LABS: Hemoglobin 16.1 g/dL (14.0-18.0); Mean Corpuscular HGB CONC 34.4 g/dL (32.0-36.0); Mean Corpuscular Hemoglobin 31.3 pg (27.0-31.0); Mean Corpuscular Volume 91.1 fL (78.0-98.0); Mean Platelet Volume 8.3 fL (7.4-10.4); Platelet Count 320 thou/uL (130-400); RBC Distribution Width 12.7 % (11.5-14.5); Red Blood Cell (RBC) Count 5.15 mill/uL (4.70-6.10); White Blood Cell (WBC) Count 22.2 thou/uL (4.8-10.8)
[2018-11-29] MEDS ORDERED: Diazepam 10 MG/2 ML SYRINGE ONE (05:04)
[2018-11-29] MEDS ORDERED: Diazepam 5 MG TAB ONE (05:05)
[2018-11-29 05:10] LABS: ALT (SGPT) 74 U/L (8-55); AST (SGOT) 280 U/L (5-34); Albumin 5.2 g/dL (3.5-5.0); Alkaline Phosphatase 154 U/L (40-110); Anion Gap 24 mmol/L (10-20); BUN (Urea Nitrogen) 15 mg/dL (8.9-20.6); Bilirubin, Total 0.5 mg/dL (0.2-1.2); Calc. Creatinine Clearance 0 mL/min (70-130); Calcium 9.8 mg/dL (7.8-10.44); Carbon Dioxide 14 mmol/L (22-29); Chloride 111 mmol/L (98-107); Estimated GFR-MDRD 28; Globulin 3.5 g/dL (2.4-3.5); Glucose 160 mg/dL (70-105); Potassium 4.5 mmol/L (3.5-5.1); Protein, Total 8.7 g/dL (6.0-8.3); Sodium 144 mmol/L (136-145)
[2018-11-29 05:15] LABS: Acetaminophen Less than 6.0 mcg/mL (10.0-30.0); Alcohol Less than 10 mg/dL (Less than 10); Salicylate Less than 8.0 mg/dL (15.0-30.0)
[2018-11-29 05:19] LABS: Band 10 % (5-11); Lymphocytes 14 % (21-51); MDiff Complete? YES; Monocytes 8 % (0-10); Neutrophil 67 % (42-75); Reactive Lymphocytes 1 % (0-10)
[2018-11-29 05:40] LABS: CK (CPK) 26683 U/L (30-200)
[2018-11-29 07:58] LABS: Troponin I 0.803 ng/mL (< 0.028)
--- NOTE | 2018-11-29 08:09 | CT ---
PRELIMINARY REPORT/[facility]/EMERGENCY AFTER HOURS PROCEDURE: PROCEDURE INFORMATION: Exam: CT Lumbar Spine Without Contrast Exam date and time: 11/29/2018 4:53 AM Clinical history: 43 years old, male; Injury or trauma; Fall; Initial encounter; Blunt trauma (contus ions or hematomas); Patient HX: 43 y/o m presents to ED S/P syncopal episode. PT called 911 after reg aining consciousness and finding himself on the floor of his bathroom. PT reported cocaine use prior to syncopal episode last evening. He is unsure as exactly when he passed out. En route, vs noted for tachycardia. PT C/O back pain for EMS. On EMS arrival to scene, PT was ambulatory TECHNIQUE: Imaging protocol: Computed tomography images of the lumbar spine without contrast. COMPARISON: No relevant prior studies available. FINDINGS: Vertebrae: On axial CT images, no definite acute fracture is visible. Sagittal and coronal reconstructions show no fracture or subluxation. Transitional vertebrae at the lumbosacral junction, labeled L5 for purposes of this exam. Rudimentary disc space at L5-S1. Discs/Spinal canal/Neural foramina: Moderate degenerative disc changes at L4-5, with vacuum disc form ation. Prominent bulging/protruding disc at L4-5. While the appearance is relatively symmetrical, this could represent a central disc herniation. This is causing moderate central spinal canal stenosis. Please correlate clinically. MRI could be more specific/sensitive if clinically indicated. Soft tissues: Unremarkable. IMPRESSION: 1. No definite acute fracture or subluxation by CT. 2. Prominent bulging/protruding disc at L4-5, see above discussion. This is causing moderate central spinal canal stenosis. Please correlate clinically. MRI could be more specific/sensitive if clinicall y indicated. 3. Other findings discussed above. Thank you for allowing us to participate in the care of your patient. Dictated and Authenticated by: Catalino Garcia MD 11/29/2018 5:40 AM Central Time ([place] & [place]) FINAL REPORT EMERGENCY AFTER HOURS CT LUMBAR SPINE WITHOUT IV CONTRAST: Date: 11/29/18 Time: 0455 hours IMPRESSION: No acute fracture or dislocation. Disc osteophytosis with stenosis at L4-L5. Transitional vertebra at the lumbosacral level. Overall lower range of normal bony spinal canal throughout. Report in agreement with preliminary report given on-call by [facility]. POS: [facility]
[2018-11-29 09:00] LABS: Lactic Acid 3.6 mmol/L (0.5-2.2)
--- NOTE | 2018-11-29 09:14 | RAD ---
SINGLE VIEW CHEST: HISTORY: Passed out in the bathroom. Back pain and chest pain. COMPARISON: 09/07/2018 FINDINGS: Single view of the chest show normal sized cardiomediastinal silhouette. There is no evidence of cons olidation, mass, or pleural effusion. The bones are unremarkable. IMPRESSION: No evidence of acute cardiopulmonary disease. POS: [facility]
[2018-11-29] MEDS ORDERED: Ziprasidone 20 MG VIAL ONE (11:39)
[2018-11-29] MEDS ORDERED: Acetaminophen 325 MG TAB PO PRN (11:44)
[2018-11-29] MEDS ORDERED: Polyethylene Glycol 3350 17 GM Packet PO PRN (11:44)
[2018-11-29] MEDS ORDERED: Dextrose 50% Abboject 50 ML SYRINGE SLOW IVP PRN (11:44)
[2018-11-29] MEDS ORDERED: Senokot S 8.6-50 MG TAB PO PRN (11:44)
[2018-11-29] MEDS ORDERED: Ondansetron PF 4 MG/2 ML Vial IVP PRN (11:44)
[2018-11-29] MEDS ORDERED: Sodium Bicarbonate 50 MEQ in Dextrose 5% in Water 1,000 ML IV PRN (11:44)
[2018-11-29] MEDS ORDERED: Guaifenesin DM 100-10/5 ML UDCUP PO PRN (11:44)
[2018-11-29] MEDS ORDERED: Bisacodyl 10 MG SUPP PR PRN (11:44)
[2018-11-29] MEDS ORDERED: HumaLOG 300 UNITS/3 ML VIAL SC PRN ×2 (11:44)
[2018-11-29] MEDS ORDERED: levETIRAcetam 500 MG TAB PO SCH (11:45)
[2018-11-29] MEDS ORDERED: Gabapentin 300 MG CAP PO SCH (11:45)
[2018-11-29] MEDS ORDERED: PROVENTIL INHALER 6.7 G (200 INHALATIONS) INH PRN (14:30)
--- NOTE | 2018-11-29 18:14 | HP ---
REASON FOR ADMISSION: Acute rhabdomyolysis, acute encephalopathy, cocaine overdose, metabolic acidosis, acute kidney injury, severe dehydration, alcohol abuse with withdrawal. HISTORY OF PRESENTING ILLNESS: The patient apparently passed out on the floor in the restroom last evening. He does not recall for how long he was on the floor. When he woke up, he had generalized body aches and was not feeling great and hence called EMS. EMS brought him here. Apparently, the patient told EMS that he had a gram of cocaine yesterday. On arrival, his CK levels are 26,000+, BUN is 15, creatinine is 2.5, and serum bicarb is 14. Has a white count of 22 and appears to be severely dehydrated. He has received a total of 3 L of IV fluid and multiple doses of lorazepam IV push to calm him down. Currently, he is encephalopathic and is not fully oriented. No obvious coughing or fever has been noticed at bedside. PAST MEDICAL AND SURGICAL HISTORY: History of seizure disorder, chronic cocaine abuse, history of TIA, hypertension, history of coronary artery disease, asthma, right ear surgery, tonsillectomy, vocal cord surgery, sinus surgery, and rectal surgery. CURRENT MEDICATIONS: 1. Keppra 1500 mg p.o. twice daily. 2. Gabapentin 300 mg daily. 3. Uses inhaler. 4. Clonazepam 1 mg p.o. q.h.s. 5. Lipitor 80 mg daily. 6. Fluoxetine 10 mg daily. 7. Topiramate 100 mg twice daily. 8. Aspirin 81 mg daily. ALLERGIES: TO PHENYTOIN, VENOM WASP. PERSONAL HISTORY: The patient admits to smoking and abusing cocaine and denies alcohol use, but was a prior alcohol abuser in the past per records. FAMILY HISTORY: Mother in her 60s, had coronary artery disease. Father is living. He is on dialysis. CODE STATUS: Full. Power of associate attorney is his , Ms. Millie Gimenez. Number to reach her is [phone] per patient. The patient does not work. He states he is disabled. REVIEW OF SYSTEMS: CONSTITUTIONAL: Negative for weight loss or gain, ability to conduct usual activities. SKIN: Negative for rash, itching. EYES: Negative for double vision, pain. ENT/MOUTH: Negative for nose bleeding, neck stiffness, pain, tenderness. CARDIOVASCULAR: Negative for palpitations, dyspnea on exertion, orthopnea. RESPIRATORY: Negative for shortness of breath, wheezing, cough, hemoptysis, fever or night sweats. GASTROINTESTINAL: Negative for poor appetite, abdominal pain, heartburn, nausea , vomiting, constipation, or diarrhea. GENITOURINARY: Negative for urgency, frequency, dysuria, nocturia. MUSCULOSKELETAL: Negative for pain, swelling. NEUROLOGIC/PSYCHIATRIC: Negative for anxiety, depression. ALLERGY/IMMUNOLOGIC: Negative for skin rash, bleeding tendency. PHYSICAL EXAMINATION: GENERAL: The patient is a 43-year-old male, who is currently not oriented, but easily gets agitated. VITAL SIGNS: Blood pressure 160/104 on arrival. Pulse 140 on arrival, currently around 90. Temperature 102.3 degrees on arrival. Respiratory rate 22 per minute, saturating 95% on room air. NECK: Supple. No elevated JVD. HEENT: Eyes; extraocular muscles intact. Pupils reacting to light. Oral cavity, mucous membranes are dry. No exudates or congestion. CARDIOVASCULAR SYSTEM: S1 and S2 heard. Regular rhythm, tachycardic. RESPIRATORY SYSTEM: Air entry 1+ bilateral. Scattered rhonchi plus bilateral. ABDOMEN: Soft. Bowel sounds heard. No tenderness, rigidity, or guarding. EXTREMITIES: No peripheral edema or calf tenderness. VASCULAR SYSTEM: Peripheral pulses 1+ bilateral. No ischemic ulcerations or gangrene. CENTRAL NERVOUS SYSTEM: No gross focal deficits noted. The patient is moving all 4 extremities. PSYCHIATRIC SYSTEM: Cannot be accurately assessed as he is currently very anxious and gets easily agitated. LABORATORY DATA: Chest x-ray done shows no acute cardiopulmonary disease. CT lumbar spine without contrast done shows no acute fracture or dislocation. Sodium 144, serum bicarb 14, BUN is 15, creatinine 2.5, serum glucose 160. Lactic acid was 6.0. AST 280, ALT 74, alkaline phosphatase 154, total bilirubin 0.5. CK levels are 26,683, CK-MB 224, troponin I 0.3, albumin is 5.2. Alcohol levels are less than 10. White count of 22, H and H 16 and 46, platelet count 320, MCV is 91 with 67% neutrophils, 10% bands. CLINICAL IMPRESSION AND PLAN: The patient will be admitted to medical floor for severe dehydration, acute kidney injury, severe rhabdomyolysis, metabolic acidosis, cocaine abuse, acute encephalopathy due to substance use. He has already received 3 L of IV fluids in the ER. We will place him on D5 water with serum bicarb. I have consulted Dr. Laboy for Nephrology consultation. We will continue him on aspirin, Prozac, and Neurontin as before. His Keppra dose will be reduced in view of acute kidney injury to 1000 mg twice daily. He has a one-to-one sitter for agitation and will continue the same on the medical floor until the patient gets more somnolent and less agitated. The patient has known history of chronic cocaine abuse, and he will be counseled when he is more awake and ready to listen. Job ID: [id number] [facility]
[2018-11-29] MEDS: Gabapentin 300 MG CAP PO SCH (21:27)
[2018-11-29] MEDS: levETIRAcetam 500 MG TAB PO SCH (21:27)
[2018-11-29] MEDS ORDERED: Ibuprofen 800 MG TAB ONE (21:46)
[2018-11-29] MEDS: Sodium Bicarbonate 150 MEQ in Dextrose 5% in Water 1,000 ML IV SCH (21:57)
[2018-11-30 04:45] LABS: Albumin 3.9 g/dL (3.5-5.0); Anion Gap 16 mmol/L (10-20); BUN (Urea Nitrogen) 37 mg/dL (8.9-20.6); BUN/Creatinine Ratio 8.58; Calc. Creatinine Clearance 0 mL/min (70-130); Calcium 7.9 mg/dL (7.8-10.44); Carbon Dioxide 21 mmol/L (22-29); Chloride 105 mmol/L (98-107); Estimated GFR-MDRD 15; Glucose 134 mg/dL (70-105); Phosphorus 6.1 mg/dL (2.3-4.7); Sodium 138 mmol/L (136-145)
[2018-11-30 05:05] LABS: #Lymphocytes 1.6 thou/uL (1.20-3.40); #Monocytes 1.9 thou/uL (0.11-0.59); #Neutrophils 15.8 thou/uL (1.40-6.50); %Basophils 0.1 % (0.0-1.0); %Eosinophils 0.1 % (0.0-10.0); %Lymphocytes 8.5 % (21.0-51.0); %Monocytes 9.8 % (0.0-10.0); %Neutrophils 81.5 % (42.0-75.0); Hemoglobin 13.5 g/dL (14.0-18.0); Mean Corpuscular HGB CONC 33.4 g/dL (32.0-36.0); Mean Corpuscular Hemoglobin 30.8 pg (27.0-31.0); Mean Corpuscular Volume 92.1 fL (78.0-98.0); Mean Platelet Volume 7.9 fL (7.4-10.4); Platelet Count 209 thou/uL (130-400); Platelet Morphology Comment Appears Adequate; RBC Distribution Width 12.5 % (11.5-14.5); White Blood Cell (WBC) Count 19.4 thou/uL (4.8-10.8)
[2018-11-30] MEDS: Sodium Bicarbonate 150 MEQ in Dextrose 5% in Water 1,000 ML IV SCH ×2 (08:00→17:05)
[2018-11-30] MEDS ORDERED: Aspirin Chewable 81 MG TAB ONE (08:03)
[2018-11-30] MEDS ORDERED: Acetaminophen 325 MG TAB ONE (08:03)
[2018-11-30] MEDS ORDERED: Enoxaparin Sodium 30 MG/0.3 ML SYRINGE ONE (08:03)
[2018-11-30] MEDS: Aspirin 81 mg Enteric Coated Tablet PO SCH (08:09)
[2018-11-30] MEDS: Enoxaparin Sodium 30 MG/0.3 ML SYRINGE SC SCH (08:09)
[2018-11-30] MEDS: FLUoxetine HCl 10 MG CAP PO SCH (09:10)
[2018-11-30] MEDS: levETIRAcetam 500 MG TAB PO SCH ×2 (09:10→20:43)
--- NOTE | 2018-11-30 10:01 | CON ---
DATE OF CONSULTATION: 11/29/2018 CONSULTING PHYSICIAN: Narda Elias MD REQUESTING PHYSICIAN: Lula Noland MD REASON FOR CONSULTATION: Acute kidney injury and rhabdomyolysis. IMPRESSION: 1. Acute kidney injury, this is likely multifactorial including but not limited to;. a. Rhabdomyolysis. b. Intravascular depletion in the context of . 2. Metabolic acidosis, likely in the context of lactic acidemia. 3. Rhabdomyolysis possibly related to illicit drug usage and also being down on ground for prolonged period of time. 4. Cocaine abuse. PLAN: 1. Aggressive IV fluid resuscitation with a bicarb based infusion as this patient's renal function has a potential to get worse before getting better acute tubular necrosis. 2. Renally dose all medications and avoid potentially nephrotoxic agents. 3. Counseled on the need to discontinue . 4. Further management will be dependent on the clinical course. HISTORY OF PRESENT ILLNESS: History is that of a 43-year-old gentleman, who presented to the ER via EMS having passed out at home for unknown duration of time. On arrival to the emergency room, the patient was noted with an elevated creatine kinase of 26,000, also elevated creatinine. Decision was taken to have this patient rehydrated as clinical evidences suggest dehydration. The patient noted with a creatinine of above 2.5, felt the need for Renal consultation. PAST MEDICAL HISTORY: Seizure disorder, cocaine abuse, hypertension, TIA, coronary artery disease, asthma, tonsillectomy, and rectal surgery. MEDICATIONS: Reviewed and as documented on [employer] . ALLERGIES: TO PHENYTOIN AND VENOM WASP. FAMILY HISTORY: Significant for kidney disease in the brother. SOCIAL HISTORY: Significant for cocaine abuse and remote history of alcohol abuse. REVIEW OF SYSTEMS: As documented in the body of the history. All the other systems were reviewed and found not to be significantly related to the presenting illness. PHYSICAL EXAMINATION: GENERAL: The patient was found to be lying on the bed, currently complaining of generalized body ache. Hemodynamically stable. HEENT: Unremarkable. CARDIOVASCULAR SYSTEM: First and second heard sounds were heard. RESPIRATORY SYSTEM: Clear to auscultation. DIGESTIVE SYSTEM: Revealed an obese abdomen. EXTREMITIES: No peripheral edema. SKIN: No new gross rash. LYMPHATICS: No peripheral lymphadenopathy. SUMMARY: A 43-year-old gentleman, who presented here having been found down at home and experiencing worsening renal function in the context of rhabdomyolysis and dehydration. Thank you for this consultation. We will follow with you. Job ID: [id number]
[2018-11-30] MEDS: Acetaminophen/Codeine 30-300mg Tablet PO PRN ×2 (10:56→17:05)
--- NOTE | 2018-11-30 17:19 | PRG ---
DATE OF SERVICE: 11/30/2018 SUBJECTIVE: The patient was seen and examined, noted with the following vital signs. OBJECTIVE: VITAL SIGNS: Afebrile, temperature 98.1, pulse 77, respiratory rate of 19, O2 saturation of 97%, blood pressure 128/76. HEENT: Unremarkable. CARDIOVASCULAR: First and second heart sounds were heard. RESPIRATORY: Clear to auscultation. DIGESTIVE: Revealed a benign abdomen. Positive bowel sounds. EXTREMITIES: No peripheral edema. SKIN: No new gross rash. LYMPHATICS: No peripheral lymphadenopathy. IMPRESSION: 1. Acute kidney injury, worsening, likely in the context of acute tubular necrosis. 2. Rhabdomyolysis. 3. Metabolic acidosis. PLAN: 1. Continue aggressive IV fluid resuscitation. 2. Avoid potentially nephrotoxic agents and renally dose all medications. 3. Hopefully, we will be able to avoid dialysis unless renal function continues to deteriorate. 4. Further management will be dependent on the clinical course. Job ID: [id number]
--- NOTE | 2018-11-30 20:05 | PDOC.HOSPP ---
- Subjective Encounter Date: 11/30/18 Encounter Time: 07:45 Subjective: awake, more calm this morning responds well to verbal stimuli has very high colored (cola) urine this am has aches and pains in all muscle groups - Objective Vital Signs & Weight: Vital Signs (12 hours) Temp Pulse Pulse Pulse Resp BP BP 11/30/18 16:28 98.1 F 77 19 11/30/18 11:00 72 68 128/76 133/64 11/30/18 10:59 72 68 128/76 133/64 11/30/18 09:50 98.5 F 65 18 BP Pulse Ox 11/30/18 16:28 143/67 H 97 11/30/18 11:00 11/30/18 10:59 11/30/18 09:50 137/63 97 Weight Weight 303 lb Result Diagrams: 11/30/18 03:50 11/30/18 03:50 Additional Labs: Accuchecks 11/30/18 11/30/18 11/30/18 16:44 16:29 11:04 POC Glucose 121 H 108 139 H Hospitalist ROS - Medication Medications: Active Medications Generic Name Dose Route Start Last Admin Trade Name Freq PRN Reason Stop Dose Admin Acetaminophen 650 mg 11/29/18 11:44 11/30/18 08:09 Tylenol PO 650 mg Q4H PRN Administration Headache/Fever/Mild Pain (1-3) Acetaminophen/Codeine Phosphate 1 tab 11/30/18 10:33 11/30/18 17:05 Tylenol #3 PO 1 tab Q6H PRN Administration Pain Aspirin 81 mg 11/30/18 09:00 11/30/18 08:09 Ecotrin PO 81 mg DAILY GELACIO Administration Enoxaparin Sodium 30 mg 11/30/18 09:00 11/30/18 08:09 Lovenox SC 30 mg 0900 GELACIO Administration Fluoxetine HCl 10 mg 11/30/18 09:00 11/30/18 09:10 Prozac PO 10 mg DAILY GELACIO Administration Gabapentin 300 mg 11/29/18 21:00 11/29/18 21:27 Neurontin PO 300 mg HS GELACIO Administration Sodium Bicarbonate 150 meq/ 1,150 mls @ 125 mls/hr 11/29/18 20:30 11/30/18 17 :05 Dextrose/Water IV 1,150 mls .Q9H12M GELACIO Administration Levetiracetam 1,000 mg 11/29/18 21:00 11/30/18 09:10 Keppra PO 1,000 mg BID GELACIO Administration Pantoprazole Sodium 40 mg 11/30/18 09:00 11/30/18 08:09 Protonix PO 40 mg DAILY GELACIO Administration Sodium Chloride 10 ml 11/29/18 21:00 11/30/18 08:02 Flush - Normal Saline IVF 10 ml Q12HR GELACIO Administration - Exam General Appearance: awake alert, ill appearing Eye: PERRL, anicteric sclera ENT: no oropharyngeal lesions, dry oral mucosa Neck: supple, no JVD Heart: RRR, no murmur Respiratory: no wheezes, no rales Gastrointestinal: soft, non-tender, non-distended, normal bowel sounds Extremities: no cyanosis, no edema Neurological: cranial nerve grossly intact, no focal deficits Psychiatric: normal affect, A&O x 3 Hosp A/P (1) Cocaine abuse Code(s): F14.10 - COCAINE ABUSE, UNCOMPLICATED Status: Acute (2) Acute renal failure Status: Acute Qualifiers: Acute renal failure type: with acute tubular necrosis Qualified Code(s): N17.0 - Acute kidney failure with tubular necrosis (3) Rhabdomyolysis Code(s): M62.82 - RHABDOMYOLYSIS Status: Acute Qualifiers: Rhabdomyolysis type: non-traumatic Qualified Code(s): M62.82 - Rhabdomyolysis (4) Metabolic acidosis Code(s): E87.2 - ACIDOSIS Status: Acute (5) Anxiety and depression Code(s): F41.9 - ANXIETY DISORDER, UNSPECIFIED; F32.9 - MAJOR DEPRESSIVE DISORDER, SINGLE EPISODE, UNSPECIFIED Status: Chronic (6) Dyslipidemia Code(s): E78.5 - HYPERLIPIDEMIA, UNSPECIFIED Status: Chronic (7) HTN (hypertension), benign Code(s): I10 - ESSENTIAL (PRIMARY) HYPERTENSION Status: Chronic (8) Morbid obesity with BMI of 45.0-49.9, adult Code(s): E66.01 - MORBID (SEVERE) OBESITY DUE TO EXCESS CALORIES; Z68.42 - BODY MASS INDEX (BMI) 45.0-49.9, ADULT Status: Chronic (9) Seizure disorder Code(s): G40.909 - EPILEPSY, UNSP, NOT INTRACTABLE, WITHOUT STATUS EPILEPTICUS Status: Chronic (10) Tobacco abuse Code(s): Z72.0 - TOBACCO USE Status: Chronic (11) Acute metabolic encephalopathy Code(s): G93.41 - METABOLIC ENCEPHALOPATHY Status: Resolved - Plan encephalopathy has resolved has impending complete renal shut down ck has maxed out causing tubular obstruction d/w , will eventually end up on HD, will follow serial labs is tolerating aggressive hydration echo for lv function in view of chr cocaine abuse hemostable now oral diet continue prozac, asp, keppra lower dose due to arf oob to chair and mobilize as tolerated
[2018-11-30] MEDS: Gabapentin 300 MG CAP PO SCH (20:43)
[2018-12-01] MEDS: Acetaminophen/Codeine 30-300mg Tablet PO PRN ×4 (00:25→22:28)
[2018-12-01] MEDS ORDERED: traMADol HCl 50 MG TAB PO SCH (03:45)
[2018-12-01] MEDS: Sodium Bicarbonate 150 MEQ in Dextrose 5% in Water 1,000 ML IV SCH ×3 (04:35→17:17)
[2018-12-01 05:30] LABS: Albumin 3.3 g/dL (3.5-5.0); Anion Gap 20 mmol/L (10-20); BUN (Urea Nitrogen) 53 mg/dL (8.9-20.6); BUN/Creatinine Ratio 8.27; Calc. Creatinine Clearance 29 mL/min (70-130); Calcium 7.3 mg/dL (7.8-10.44); Carbon Dioxide 20 mmol/L (22-29); Chloride 96 mmol/L (98-107); Estimated GFR-MDRD 10; Glucose 114 mg/dL (70-105); Phosphorus 7.2 mg/dL (2.3-4.7); Potassium 4.7 mmol/L (3.5-5.1); Sodium 131 mmol/L (136-145)
[2018-12-01] MEDS ORDERED: Bisacodyl 10 MG SUPP PR SCH (10:00)
[2018-12-01] MEDS ORDERED: Magnesium Citrate 300 ML BOT PO SCH (10:00)
[2018-12-01] MEDS: Aspirin 81 mg Enteric Coated Tablet PO SCH (11:50)
[2018-12-01] MEDS: FLUoxetine HCl 10 MG CAP PO SCH (11:50)
[2018-12-01] MEDS: levETIRAcetam 500 MG TAB PO SCH ×2 (11:50→21:11)
[2018-12-01] MEDS: Enoxaparin Sodium 30 MG/0.3 ML SYRINGE SC SCH (11:50)
--- NOTE | 2018-12-01 12:16 | ULT ---
BILATERAL RENAL ULTRASOUND: Date: 12/01/18 HISTORY: Rhabdomyolysis. TECHNIQUE: Multiplanar Pate scale and color Doppler images were obtained in a renal ultrasound. FINDINGS: The kidneys are normal in echogenicity without hydronephrosis or calculi and measure 13.5 and 12.8 cm in length on the right and left, respectively. Limited visualization of the urinary bladder is unremarkable. IMPRESSION: Unremarkable renal ultrasound. POS: CET
--- NOTE | 2018-12-01 12:35 | PDOC.HOSPP ---
- Subjective Encounter Date: 12/01/18 Encounter Time: 09:15 Subjective: awake, no sob says his urine cleared up a bit this am (dark yellow from cola colored), made around 400ml at 6.30 am urine output is low per patient is more alert and awake, his girlfriend at bedside - Objective Vital Signs & Weight: Vital Signs (12 hours) Temp Pulse Resp BP Pulse Ox 12/01/18 11:47 99.1 F 73 18 133/81 94 L 12/01/18 08:52 97 12/01/18 07:50 99.4 F 80 20 149/74 H 97 12/01/18 04:00 98.8 F 78 20 158/80 H 96 Weight Weight 302 lb 4.8 oz I&O: 11/30/18 12/01/18 12/02/18 06:59 06:59 06:59 Output Total 700 Balance -700 Result Diagrams: 11/30/18 03:50 12/01/18 04:42 Additional Labs: Accuchecks 12/01/18 12/01/18 11/30/18 10:53 06:09 20:14 POC Glucose 113 H 122 H 154 H 11/30/18 11/30/18 16:44 16:29 POC Glucose 121 H 108 Hospitalist ROS - Medication Medications: Active Medications Generic Name Dose Route Start Last Admin Trade Name Freq PRN Reason Stop Dose Admin Acetaminophen 650 mg 11/29/18 11:44 11/30/18 08:09 Tylenol PO 650 mg Q4H PRN Administration Headache/Fever/Mild Pain (1-3) Acetaminophen/Codeine Phosphate 1 tab 11/30/18 10:33 12/01/18 08:49 Tylenol #3 PO 1 tab Q6H PRN Administration Pain Aspirin 81 mg 11/30/18 09:00 12/01/18 11:50 Ecotrin PO 81 mg DAILY GELACIO Administration Bisacodyl 10 mg 12/01/18 10:00 12/01/18 10:40 Dulcolax [place] 12/01/18 14:00 10 mg NOW GELACIO Administration Enoxaparin Sodium 30 mg 11/30/18 09:00 12/01/18 11:50 Lovenox SC Not Given 0900 GELACIO Fluoxetine HCl 10 mg 11/30/18 09:00 12/01/18 11:50 Prozac PO Not Given DAILY GELACIO Gabapentin 300 mg 11/29/18 21:00 11/30/18 20:43 Neurontin PO 300 mg HS GELACIO Administration Sodium Bicarbonate 150 meq/ 1,150 mls @ 125 mls/hr 11/29/18 20:30 12/01/18 11 :51 Dextrose/Water IV Not Given .Q9H12M GELACIO Levetiracetam 500 mg 11/30/18 21:00 12/01/18 11:50 Keppra PO 500 mg BID GELACIO Administration Magnesium Citrate 150 ml 12/01/18 10:00 12/01/18 11:52 Citrate Of Magnesia 300 Ml Bot PO 12/01/18 14:00 Not Given NOW GELACIO Pantoprazole Sodium 40 mg 11/30/18 09:00 12/01/18 11:50 Protonix PO 40 mg DAILY GELACIO Administration Sodium Chloride 10 ml 11/29/18 21:00 12/01/18 11:51 Flush - Normal Saline IVF Not Given Q12HR GELACIO - Exam General Appearance: awake alert Eye: PERRL, anicteric sclera ENT: no oropharyngeal lesions, moist mucosa Neck: supple, no JVD Heart: RRR, no murmur Respiratory: no wheezes, no rales Gastrointestinal: soft, non-tender, non-distended, normal bowel sounds Extremities: no cyanosis, no edema Neurological: cranial nerve grossly intact, no focal deficits Psychiatric: normal affect, A&O x 3 Hosp A/P (1) Cocaine abuse Code(s): F14.10 - COCAINE ABUSE, UNCOMPLICATED Status: Acute (2) Acute renal failure Status: Acute Qualifiers: Acute renal failure type: with acute tubular necrosis Qualified Code(s): N17.0 - Acute kidney failure with tubular necrosis (3) Rhabdomyolysis Code(s): M62.82 - RHABDOMYOLYSIS Status: Acute Qualifiers: Rhabdomyolysis type: non-traumatic Qualified Code(s): M62.82 - Rhabdomyolysis (4) Metabolic acidosis Code(s): E87.2 - ACIDOSIS Status: Acute (5) Anxiety and depression Code(s): F41.9 - ANXIETY DISORDER, UNSPECIFIED; F32.9 - MAJOR DEPRESSIVE DISORDER, SINGLE EPISODE, UNSPECIFIED Status: Chronic (6) Dyslipidemia Code(s): E78.5 - HYPERLIPIDEMIA, UNSPECIFIED Status: Chronic (7) HTN (hypertension), benign Code(s): I10 - ESSENTIAL (PRIMARY) HYPERTENSION Status: Chronic (8) Morbid obesity with BMI of 45.0-49.9, adult Code(s): E66.01 - MORBID (SEVERE) OBESITY DUE TO EXCESS CALORIES; Z68.42 - BODY MASS INDEX (BMI) 45.0-49.9, ADULT Status: Chronic (9) Seizure disorder Code(s): G40.909 - EPILEPSY, UNSP, NOT INTRACTABLE, WITHOUT STATUS EPILEPTICUS Status: Chronic (10) Tobacco abuse Code(s): Z72.0 - TOBACCO USE Status: Chronic (11) Acute metabolic encephalopathy Code(s): G93.41 - METABOLIC ENCEPHALOPATHY Status: Resolved - Plan encephalopathy has resolved has impending complete renal shut down, progressive increase in creatinine from around 2 to 6 now. ck has maxed out causing tubular obstruction may get a hemsplit HD cath in prep for HD is tolerating aggressive hydration echo for lv function in view of chr cocaine abuse hemostable now oral diet continue prozac, asp, keppra lower dose due to arf oob to chair and mobilize as tolerated renal usg shows normal size kidneys, normal echogenicity
--- NOTE | 2018-12-01 15:21 | PRG ---
DATE OF SERVICE: 12/01/2018 SUBJECTIVE: The patient is seen and examined today, complained of back pain. Noted with the following vital signs. OBJECTIVE: VITAL SIGNS: Afebrile, temperature 99.1, pulse 73, respiratory rate of 18, O2 saturation of 94%, and blood pressure 135/78. HEENT: Unremarkable. CARDIOVASCULAR SYSTEM: First and second heart sounds were heard. RESPIRATORY SYSTEM: Clear to auscultation. DIGESTIVE SYSTEM: Revealed an obese abdomen. EXTREMITIES: No peripheral edema. SKIN: No new gross rash. LYMPHATICS: No peripheral lymphadenopathy. LABORATORY INVESTIGATION: Showed a sodium of 131, BUN of 53, creatinine of 6.41 with a bicarb of 20, phosphorus 7.2, calcium 7.3. CPK greater than 40,000. IMPRESSION: 1. Acute tubular necrosis, nonoliguric. 2. Severe rhabdomyolysis. 3. Morbid obesity. 4. Mild metabolic acidosis. 5. Hyponatremia. PLAN: 1. Get a renal ultrasound to evaluate the condition of the kidneys in preparation for possible hemodialysis treatment. 2. Renally dose all medications and avoid potentially nephrotoxic agents. 3. Become a little bit more aggressive with IV fluid resuscitation, we will increase rate of these IV fluid. 4. We will continue to monitor this patient closely. Otherwise, the patient is already teetering at the edge of hemodialysis. 5. Further management will be dependent on the clinical course. Job ID: [id number]
[2018-12-01] MEDS: Gabapentin 300 MG CAP PO SCH (21:11)
[2018-12-02] MEDS: Sodium Bicarbonate 150 MEQ in Dextrose 5% in Water 1,000 ML IV SCH ×3 (00:29→18:56)
[2018-12-02 06:12] LABS: Albumin 3.1 g/dL (3.5-5.0); Anion Gap 20 mmol/L (10-20); BUN (Urea Nitrogen) 65 mg/dL (8.9-20.6); BUN/Creatinine Ratio 8.26; Calc. Creatinine Clearance 24 mL/min (70-130); Calcium 6.7 mg/dL (7.8-10.44); Carbon Dioxide 23 mmol/L (22-29); Chloride 89 mmol/L (98-107); Estimated GFR-MDRD 8; Glucose 130 mg/dL (70-105); Phosphorus 8.1 mg/dL (2.3-4.7); Potassium 3.7 mmol/L (3.5-5.1); Sodium 128 mmol/L (136-145)
[2018-12-02 06:46] LABS: CK (CPK) Greater than 40000 U/L (30-200)
[2018-12-02] MEDS: Aspirin 81 mg Enteric Coated Tablet PO SCH (08:42)
[2018-12-02] MEDS: levETIRAcetam 500 MG TAB PO SCH (08:42)
[2018-12-02] MEDS: Enoxaparin Sodium 30 MG/0.3 ML SYRINGE SC SCH (08:43)
[2018-12-02] MEDS: FLUoxetine HCl 10 MG CAP PO SCH (08:43)
[2018-12-02] MEDS ORDERED: Heparin 1,000 UNITS/ML VIAL ONE (11:11)
[2018-12-02] MEDS: Acetaminophen/Codeine 30-300mg Tablet PO PRN (12:09)
--- NOTE | 2018-12-02 14:58 | PDOC.HOSPP ---
- Subjective Subjective: Has some back pain. Reports some SOB. Says he has memory loss and doesn't know if nephrology has been here today. - Objective Vital Signs & Weight: Vital Signs (12 hours) Temp Pulse Resp BP Pulse Ox 12/02/18 11:30 98.9 F 79 20 131/97 H 96 12/02/18 08:20 98.4 F 74 20 144/84 H 94 L 12/02/18 03:41 98.2 F 67 21 H 152/89 H 96 Weight Weight 302 lb 3.2 oz I&O: 12/01/18 12/02/18 12/03/18 06:59 06:59 06:59 Output Total 700 700 Balance -700 -700 Result Diagrams: 11/30/18 03:50 12/02/18 05:34 Additional Labs: Accuchecks 12/02/18 12/01/18 12/01/18 05:27 19:34 16:50 POC Glucose 124 H 134 H 120 H Hospitalist ROS - Medication Medications: Active Medications Generic Name Dose Route Start Last Admin Trade Name Freq PRN Reason Stop Dose Admin Acetaminophen 650 mg 11/29/18 11:44 11/30/18 08:09 Tylenol PO 650 mg Q4H PRN Administration Headache/Fever/Mild Pain (1-3) Acetaminophen/Codeine Phosphate 1 tab 11/30/18 10:33 12/02/18 12:09 Tylenol #3 PO 1 tab Q6H PRN Administration Pain Aspirin 81 mg 11/30/18 09:00 12/02/18 08:42 Ecotrin PO 81 mg DAILY GELACIO Administration Enoxaparin Sodium 30 mg 11/30/18 09:00 12/02/18 08:43 Lovenox SC 30 mg 0900 GELACIO Administration Fluoxetine HCl 10 mg 11/30/18 09:00 12/02/18 08:43 Prozac PO 10 mg DAILY GELACIO Administration Gabapentin 300 mg 11/29/18 21:00 12/01/18 21:11 Neurontin PO 300 mg HS GELACIO Administration Sodium Bicarbonate 150 meq/ 1,150 mls @ 150 mls/hr 12/01/18 14:40 12/02/18 08 :39 Dextrose/Water IV 1,150 mls .Q7H40M GELACIO Administration Levetiracetam 500 mg 11/30/18 21:00 12/02/18 08:42 Keppra PO 500 mg BID GELACIO Administration Pantoprazole Sodium 40 mg 11/30/18 09:00 12/02/18 08:42 Protonix PO 40 mg DAILY GELACIO Administration Sodium Chloride 10 ml 11/29/18 21:00 12/02/18 08:44 Flush - Normal Saline IVF Not Given Q12HR GELACIO - Exam General Appearance: NAD, awake alert Neck: supple Heart: RRR, no murmur, no gallops, no rubs, normal peripheral pulses Respiratory: CTAB, tachypneic (Mild) Respiratory - other findings: Diminished in bases. Gastrointestinal: soft, non-tender, non-distended, normal bowel sounds, no palpable masses, no hepatomegaly, no splenomegaly, no bruit Extremities: no cyanosis, no clubbing, no edema Musculoskeletal: normal tone Psychiatric: normal affect Hosp A/P (1) Acute renal failure Status: Acute Qualifiers: Acute renal failure type: with acute tubular necrosis Qualified Code(s): N17.0 - Acute kidney failure with tubular necrosis (2) Cocaine abuse Code(s): F14.10 - COCAINE ABUSE, UNCOMPLICATED Status: Acute (3) Metabolic acidosis Code(s): E87.2 - ACIDOSIS Status: Acute (4) Rhabdomyolysis Code(s): M62.82 - RHABDOMYOLYSIS Status: Acute Qualifiers: Rhabdomyolysis type: non-traumatic Qualified Code(s): M62.82 - Rhabdomyolysis (5) Acute metabolic encephalopathy Code(s): G93.41 - METABOLIC ENCEPHALOPATHY Status: Resolved (6) Chest pain Code(s): R07.9 - CHEST PAIN, UNSPECIFIED Status: Acute (7) Anxiety and depression Code(s): F41.9 - ANXIETY DISORDER, UNSPECIFIED; F32.9 - MAJOR DEPRESSIVE DISORDER, SINGLE EPISODE, UNSPECIFIED Status: Chronic (8) Dyslipidemia Code(s): E78.5 - HYPERLIPIDEMIA, UNSPECIFIED Status: Chronic (9) HTN (hypertension), benign Code(s): I10 - ESSENTIAL (PRIMARY) HYPERTENSION Status: Chronic (10) Morbid obesity with BMI of 45.0-49.9, adult Code(s): E66.01 - MORBID (SEVERE) OBESITY DUE TO EXCESS CALORIES; Z68.42 - BODY MASS INDEX (BMI) 45.0-49.9, ADULT Status: Chronic (11) Seizure disorder Code(s): G40.909 - EPILEPSY, UNSP, NOT INTRACTABLE, WITHOUT STATUS EPILEPTICUS Status: Chronic (12) Tobacco abuse Code(s): Z72.0 - TOBACCO USE Status: Chronic (13) Myocardial infarction Code(s): I21.9 - ACUTE MYOCARDIAL INFARCTION, UNSPECIFIED Status: Acute Qualifiers: Myocardial infarction type: type 2 Qualified Code(s): I21.A1 - Myocardial infarction type 2 Plan: Secondary to cocaine abuse - Plan Renal function continues to decline. Now has a little SOB. Suspect he needs dialysis. Messaged Dr. Elias to make him aware. Fluids continued to help with renal function and CK. Will decrease those in light of the SOB.
[2018-12-02] MEDS ORDERED: Morphine 4 MG/ML VIAL SLOW IVP SCH (22:30)
[2018-12-03 00:28] LABS: Hep B Surf Ag Non-Reactive S/CO (NonReactive)
[2018-12-03] MEDS: Gabapentin 300 MG CAP PO SCH ×2 (03:54→20:47)
[2018-12-03] MEDS: levETIRAcetam 500 MG TAB PO SCH ×3 (03:54→20:47)
[2018-12-03] MEDS: Sodium Bicarbonate 150 MEQ in Dextrose 5% in Water 1,000 ML IV SCH (04:27)
[2018-12-03 06:04] LABS: Anion Gap 17 mmol/L (10-20); BUN (Urea Nitrogen) 67 mg/dL (8.9-20.6); BUN/Creatinine Ratio 8.56; Calc. Creatinine Clearance 24 mL/min (70-130); Calcium 7.1 mg/dL (7.8-10.44); Carbon Dioxide 24 mmol/L (22-29); Chloride 91 mmol/L (98-107); Estimated GFR-MDRD 8; Glucose 114 mg/dL (70-105); Phosphorus 6.9 mg/dL (2.3-4.7); Sodium 128 mmol/L (136-145)
[2018-12-03 06:35] LABS: CK (CPK) Greater than 40000 U/L (30-200)
--- NOTE | 2018-12-03 06:54 | PRG ---
DATE OF SERVICE: 12/02/2018 SUBJECTIVE: The patient noted to be struggling, having a lot of difficulty with breathing, seems to be feeling as if he is completely bloated, and noted with the following vital signs. OBJECTIVE: VITAL SIGNS: Temperature 98.6, pulse 75, respiratory rate of 22, oxygen saturation 95%, blood pressure 142/93. HEENT: Remarkable for some facial puffiness. CARDIOVASCULAR: First and second heart sounds were heard. RESPIRATORY: Clear to auscultation anteriorly. DIGESTIVE: Revealed faint abdominal distension. EXTREMITIES: Shows no peripheral edema. SKIN: No new gross rash. LYMPHATICS: No peripheral lymphadenopathy. LABORATORY INVESTIGATION: Showed sodium 128, BUN of 65, creatinine 7.87, calcium of 6.7 with a phosphorus of 8.8, CPK greater than 40,000. IMPRESSION: 1. Severe tubular necrosis in the context of #2. 2. Severe rhabdomyolysis. 3. Hyponatremia, likely dilutional hyponatremia in the context of hypovolemia. 4. Hyperkalemia. 5. Morbid obesity. PLAN: 1. Discontinue IV fluids. 2. Given the fact that the patient's renal function is still deteriorating and progressing in the wrong direction resulting in difficulty with breathing, we will go ahead and set up hemodialysis with ultrafiltration as tolerated by hemodynamics. 3. Avoid potentially nephrotoxic agents and renally dose all medications. 4. We will continue to monitor the renal function closely after initiating dialysis vis-a-vis the possibility of renal recovery from this acute tubular necrosis. 5. Further management to be dependent on the clinical course. 6. Condition of patient is guarded. Job ID: [id number]
[2018-12-03] MEDS ORDERED: Heparin 1,000 UNITS/ML VIAL ONE (11:11)
[2018-12-03] MEDS: Enoxaparin Sodium 30 MG/0.3 ML SYRINGE SC SCH (12:08)
[2018-12-03] MEDS: Aspirin 81 mg Enteric Coated Tablet PO SCH (12:08)
[2018-12-03] MEDS: FLUoxetine HCl 10 MG CAP PO SCH (12:08)
[2018-12-03] MEDS ORDERED: Activase 2 MG VIAL CATH SCH (12:16)
[2018-12-03] MEDS ORDERED: Sterile Water 10 ML VIAL IVP SCH (12:16)
[2018-12-03] MEDS ORDERED: Heparin 10,000 UNITS/ 10 ML VIAL FS PRN ×2 (12:30)
--- NOTE | 2018-12-03 16:01 | PDOC.HOSPP ---
- Subjective Subjective: Doing ok. Reports back pain and wants pain meds. Tolerated dialysis well. - Objective Vital Signs & Weight: Vital Signs (12 hours) Temp Pulse Resp BP Pulse Ox 12/03/18 12:04 98.1 F 84 20 142/64 H 97 12/03/18 07:47 99.7 F H 70 18 142/75 H 95 Weight Weight 308 lb 9.6 oz I&O: 12/02/18 12/03/18 12/04/18 06:59 06:59 06:59 Intake Total 4990 Output Total 700 3000 Balance -700 1989 Result Diagrams: 11/30/18 03:50 12/03/18 05:16 Additional Labs: Accuchecks 12/03/18 12/03/18 12/02/18 10:49 06:23 20:57 POC Glucose 94 114 H 140 H 12/02/18 17:43 POC Glucose 105 Hospitalist ROS - Medication Medications: Active Medications Generic Name Dose Route Start Last Admin Trade Name Freq PRN Reason Stop Dose Admin Acetaminophen 650 mg 11/29/18 11:44 11/30/18 08:09 Tylenol PO 650 mg Q4H PRN Administration Headache/Fever/Mild Pain (1-3) Acetaminophen/Codeine Phosphate 1 tab 11/30/18 10:33 12/02/18 12:09 Tylenol #3 PO 1 tab Q6H PRN Administration Pain Aspirin 81 mg 11/30/18 09:00 12/03/18 12:08 Ecotrin PO 81 mg DAILY GELACIO Administration Enoxaparin Sodium 30 mg 11/30/18 09:00 12/03/18 12:08 Lovenox SC 30 mg 0900 GELACIO Administration Fluoxetine HCl 10 mg 11/30/18 09:00 12/03/18 12:08 Prozac PO 10 mg DAILY GELACIO Administration Gabapentin 300 mg 11/29/18 21:00 12/03/18 03:54 Neurontin PO Not Given HS GELACIO Levetiracetam 500 mg 11/30/18 21:00 12/03/18 12:08 Keppra PO 500 mg BID GELACIO Administration Pantoprazole Sodium 40 mg 11/30/18 09:00 12/03/18 12:08 Protonix PO 40 mg DAILY GELACIO Administration Sodium Chloride 10 ml 11/29/18 21:00 12/03/18 12:08 Flush - Normal Saline IVF 10 ml Q12HR GELACIO Administration - Exam General Appearance: NAD, awake alert General - other findings: Morbidly obese. Heart: RRR, no murmur, no gallops, no rubs, normal peripheral pulses Respiratory: CTAB, no wheezes, no rales, no ronchi, normal chest expansion, no tachypnea, normal percussion Gastrointestinal: soft, non-tender, non-distended, normal bowel sounds, no palpable masses, no hepatomegaly, no splenomegaly, no bruit Skin: normal turgor, no lesions, no rashes Musculoskeletal: normal tone, normal strength, no muscle wasting Psychiatric: normal affect, normal behavior, A&O x 3 Hosp A/P (1) Acute renal failure Status: Acute Qualifiers: Acute renal failure type: with acute tubular necrosis Qualified Code(s): N17.0 - Acute kidney failure with tubular necrosis (2) Cocaine abuse Code(s): F14.10 - COCAINE ABUSE, UNCOMPLICATED Status: Acute (3) Metabolic acidosis Code(s): E87.2 - ACIDOSIS Status: Acute (4) Rhabdomyolysis Code(s): M62.82 - RHABDOMYOLYSIS Status: Acute Qualifiers: Rhabdomyolysis type: non-traumatic Qualified Code(s): M62.82 - Rhabdomyolysis (5) Acute metabolic encephalopathy Code(s): G93.41 - METABOLIC ENCEPHALOPATHY Status: Resolved (6) Chest pain Code(s): R07.9 - CHEST PAIN, UNSPECIFIED Status: Acute (7) Anxiety and depression Code(s): F41.9 - ANXIETY DISORDER, UNSPECIFIED; F32.9 - MAJOR DEPRESSIVE DISORDER, SINGLE EPISODE, UNSPECIFIED Status: Chronic (8) Dyslipidemia Code(s): E78.5 - HYPERLIPIDEMIA, UNSPECIFIED Status: Chronic (9) HTN (hypertension), benign Code(s): I10 - ESSENTIAL (PRIMARY) HYPERTENSION Status: Chronic (10) Morbid obesity with BMI of 45.0-49.9, adult Code(s): E66.01 - MORBID (SEVERE) OBESITY DUE TO EXCESS CALORIES; Z68.42 - BODY MASS INDEX (BMI) 45.0-49.9, ADULT Status: Chronic (11) Seizure disorder Code(s): G40.909 - EPILEPSY, UNSP, NOT INTRACTABLE, WITHOUT STATUS EPILEPTICUS Status: Chronic (12) Tobacco abuse Code(s): Z72.0 - TOBACCO USE Status: Chronic (13) Myocardial infarction Code(s): I21.9 - ACUTE MYOCARDIAL INFARCTION, UNSPECIFIED Status: Acute Qualifiers: Myocardial infarction type: type 2 Qualified Code(s): I21.A1 - Myocardial infarction type 2 - Plan Renal function declined to the point of requiring HD. HD initiated on 12/02. SOB resolved. CK level still very high. Continue fluids, HD. Will try to avoid opioids in a patient who present with acute cocaine intoxication and hx of abuse. Discussed the entire scenario with the patient and his girlfriend who is at the bedside.
--- NOTE | 2018-12-03 19:38 | PRG ---
DATE OF SERVICE: 12/03/2018 SUBJECTIVE: The patient is seen and examined, seems to be feeling a little bit better, status post two sessions of dialysis. Noted with the following vital signs. OBJECTIVE: VITAL SIGNS: Afebrile, temperature 98.1, pulse 84, respiratory rate of 20, and O2 saturations of 97% with blood pressure 142/64. HEENT: Unremarkable. CARDIOVASCULAR SYSTEM: First and second heart sounds were heard. RESPIRATORY SYSTEM: Clear to auscultation. DIGESTIVE SYSTEM: Revealed a benign abdomen with positive bowel sounds. EXTREMITIES: No peripheral edema. SKIN: No new gross rash. LYMPHATICS: No peripheral lymphadenopathy. LABORATORY INVESTIGATION: Showed a sodium of 128, creatinine 7.83, BUN of 67, calcium 7.1, and phosphorus 6.9. CPK is still greater than 40,000. IMPRESSION: 1. Severe rhabdomyolysis resulting in problem #2. 2. Pigment-induced acute tubular necrosis, nonoliguric. 3. Hyperphosphatemia with hypocalcemia in the context of rhabdomyolysis. 4. Hypovolemia responded to dialysis. PLAN: 1. The patient has had about two sessions of dialysis with ultrafiltration of close to 5 L of fluid. 2. We will continue with hemodialysis with ultrafiltration as tolerated by hemodynamics. 3. We will continue to monitor the renal function closely for possibility of renal recovery. 4. Further management to be dependent on the clinical course. Job ID: [id number]
[2018-12-03] MEDS: Acetaminophen/Codeine 30-300mg Tablet PO PRN (20:51)
[2018-12-04 05:32] LABS: #Eosinphils 0.1 thou/uL (0.0-0.7); #Lymphocytes 1.7 thou/uL (1.20-3.40); #Monocytes 1.8 thou/uL (0.11-0.59); #Neutrophils 10.1 thou/uL (1.40-6.50); %Basophils 0.2 % (0.0-1.0); %Eosinophils 1.1 % (0.0-10.0); %Lymphocytes 12.2 % (21.0-51.0); %Monocytes 12.8 % (0.0-10.0); %Neutrophils 73.8 % (42.0-75.0); Hemoglobin 11.8 g/dL (14.0-18.0); Mean Corpuscular HGB CONC 33.8 g/dL (32.0-36.0); Mean Corpuscular Hemoglobin 31.2 pg (27.0-31.0); Mean Corpuscular Volume 92.3 fL (78.0-98.0); Mean Platelet Volume 7.3 fL (7.4-10.4); Platelet Count 194 thou/uL (130-400); RBC Distribution Width 12.4 % (11.5-14.5); Red Blood Cell (RBC) Count 3.78 mill/uL (4.70-6.10); White Blood Cell (WBC) Count 13.7 thou/uL (4.8-10.8)
[2018-12-04 05:53] LABS: Albumin 3.2 g/dL (3.5-5.0); Anion Gap 18 mmol/L (10-20); BUN (Urea Nitrogen) 59 mg/dL (8.9-20.6); BUN/Creatinine Ratio 7.99; Calc. Creatinine Clearance 26 mL/min (70-130); Carbon Dioxide 29 mmol/L (22-29); Chloride 93 mmol/L (98-107); Estimated GFR-MDRD 8; Glucose 115 mg/dL (70-105); Phosphorus 7.2 mg/dL (2.3-4.7); Sodium 136 mmol/L (136-145)
[2018-12-04 06:19] LABS: CK (CPK) 37539 U/L (30-200)
[2018-12-04] MEDS: Acetaminophen/Codeine 30-300mg Tablet PO PRN ×3 (11:06→23:36)
[2018-12-04] MEDS: Enoxaparin Sodium 30 MG/0.3 ML SYRINGE SC SCH (11:07)
[2018-12-04] MEDS: Aspirin 81 mg Enteric Coated Tablet PO SCH (11:07)
[2018-12-04] MEDS: FLUoxetine HCl 10 MG CAP PO SCH (11:07)
[2018-12-04] MEDS: levETIRAcetam 500 MG TAB PO SCH ×2 (11:08→21:26)
--- NOTE | 2018-12-04 14:20 | OP ---
DATE OF PROCEDURE: 12/03/2018 PROCEDURE PERFORMED: Right femoral dialysis catheter placement. MEDICATIONS: 2% lidocaine. COMPLICATIONS: None. BLOOD LOSS: Minimal. DESCRIPTION OF PROCEDURE: After informed consent was obtained, the patient was prepped and draped in a sterile fashion. The right femoral vein was approached in layers under real-time ultrasound guidance. was secured with a wire, and after serial dilatation, a Trialysis catheter was placed. All ports were flushed, and catheter ready for use. The patient tolerated the procedure very well without any immediate postoperative complications. The patient is already initiated on hemodialysis. Job ID: [id number]
--- NOTE | 2018-12-04 17:23 | PDOC.HOSPP ---
- Subjective Subjective: Feels ok. No complaints. Does not want the [place] out until his girlfriend gets here to help him get up and around. - Objective Vital Signs & Weight: Vital Signs (12 hours) Temp Pulse Resp BP Pulse Ox 12/04/18 15:35 98.8 F 75 18 140/65 96 12/04/18 11:01 98.3 F 90 18 156/67 H 97 Weight Weight 308 lb 9.6 oz I&O: 12/03/18 12/04/18 12/05/18 06:59 06:59 06:59 Intake Total 4990 2060 Output Total 3000 3350 Balance 1989 -1289 Result Diagrams: 12/04/18 05:01 12/04/18 05:01 Additional Labs: Accuchecks 12/04/18 12/04/18 12/04/18 16:52 11:15 05:54 POC Glucose 196 H 132 H 109 12/03/18 12/03/18 20:25 16:53 POC Glucose 134 H 155 H Hospitalist ROS - Medication Medications: Active Medications Generic Name Dose Route Start Last Admin Trade Name Freq PRN Reason Stop Dose Admin Acetaminophen 650 mg 11/29/18 11:44 11/30/18 08:09 Tylenol PO 650 mg Q4H PRN Administration Headache/Fever/Mild Pain (1-3) Acetaminophen/Codeine Phosphate 1 tab 11/30/18 10:33 12/04/18 11:06 Tylenol #3 PO 1 tab Q6H PRN Administration Pain Aspirin 81 mg 11/30/18 09:00 12/04/18 11:07 Ecotrin PO 81 mg DAILY GELACIO Administration Fluoxetine HCl 10 mg 11/30/18 09:00 12/04/18 11:07 Prozac PO 10 mg DAILY GELACIO Administration Gabapentin 300 mg 11/29/18 21:00 12/03/18 20:47 Neurontin PO 300 mg HS GELACIO Administration Levetiracetam 500 mg 11/30/18 21:00 12/04/18 11:08 Keppra PO 500 mg BID GELACIO Administration Pantoprazole Sodium 40 mg 11/30/18 09:00 12/04/18 11:07 Protonix PO 40 mg DAILY GELACIO Administration Sodium Chloride 10 ml 11/29/18 21:00 12/04/18 11:09 Flush - Normal Saline IVF 10 ml Q12HR GELACIO Administration - Exam General Appearance: NAD, awake alert General - other findings: Morbidly obese. ENT: normocephalic atraumatic, no oropharyngeal lesions, moist mucosa Neck: supple, symmetric, no JVD, no thyromegaly, no lymphadenopathy, no carotid bruit Heart: RRR, no murmur, no gallops, no rubs, normal peripheral pulses Respiratory: CTAB, no wheezes, no rales, no ronchi, normal chest expansion, no tachypnea, normal percussion Gastrointestinal: soft, non-tender, non-distended, normal bowel sounds, no palpable masses, no hepatomegaly, no splenomegaly, no bruit Extremities: no cyanosis, no clubbing, no edema Skin: normal turgor Musculoskeletal: normal tone Psychiatric: normal affect, normal behavior, A&O x 3 Hosp A/P (1) Acute renal failure Status: Acute Qualifiers: Acute renal failure type: with acute tubular necrosis Qualified Code(s): N17.0 - Acute kidney failure with tubular necrosis (2) Cocaine abuse Code(s): F14.10 - COCAINE ABUSE, UNCOMPLICATED Status: Acute (3) Metabolic acidosis Code(s): E87.2 - ACIDOSIS Status: Acute (4) Rhabdomyolysis Code(s): M62.82 - RHABDOMYOLYSIS Status: Acute Qualifiers: Rhabdomyolysis type: non-traumatic Qualified Code(s): M62.82 - Rhabdomyolysis (5) Acute metabolic encephalopathy Code(s): G93.41 - METABOLIC ENCEPHALOPATHY Status: Resolved (6) Chest pain Code(s): R07.9 - CHEST PAIN, UNSPECIFIED Status: Acute (7) Anxiety and depression Code(s): F41.9 - ANXIETY DISORDER, UNSPECIFIED; F32.9 - MAJOR DEPRESSIVE DISORDER, SINGLE EPISODE, UNSPECIFIED Status: Chronic (8) Dyslipidemia Code(s): E78.5 - HYPERLIPIDEMIA, UNSPECIFIED Status: Chronic (9) HTN (hypertension), benign Code(s): I10 - ESSENTIAL (PRIMARY) HYPERTENSION Status: Chronic (10) Morbid obesity with BMI of 45.0-49.9, adult Code(s): E66.01 - MORBID (SEVERE) OBESITY DUE TO EXCESS CALORIES; Z68.42 - BODY MASS INDEX (BMI) 45.0-49.9, ADULT Status: Chronic (11) Seizure disorder Code(s): G40.909 - EPILEPSY, UNSP, NOT INTRACTABLE, WITHOUT STATUS EPILEPTICUS Status: Chronic (12) Tobacco abuse Code(s): Z72.0 - TOBACCO USE Status: Chronic (13) Myocardial infarction Code(s): I21.9 - ACUTE MYOCARDIAL INFARCTION, UNSPECIFIED Status: Acute Qualifiers: Myocardial infarction type: type 2 Qualified Code(s): I21.A1 - Myocardial infarction type 2 - Plan Renal function declined to the point of requiring HD. HD initiated on 12/02. SOB resolved. CK level still very high. But now measurable. Continue fluids, HD. Will try to avoid opioids in a patient who present with acute cocaine intoxication and hx of abuse. Will need OP chair. IVONNE berry.
--- NOTE | 2018-12-04 19:06 | PRG ---
DATE OF SERVICE: 12/04/2018 SUBJECTIVE: The patient is seen and examined. Seems to be doing much better. Noted with the following vital signs. OBJECTIVE: VITAL SIGNS: Afebrile, temperature 98.8, pulse 75, respiratory rate of 18, O2 saturations 96%, blood pressure 140/65. HEENT: Unremarkable. CARDIOVASCULAR SYSTEM: First and second heart sounds were heard. RESPIRATORY SYSTEM: Clear to auscultation. DIGESTIVE SYSTEM: Benign abdomen. Positive bowel sounds. EXTREMITIES: No peripheral edema. SKIN: No new gross rash. LYMPHATICS: No peripheral lymphadenopathy. LABORATORY INVESTIGATION: Showed a creatinine of 7.38, BUN of 69, phosphorus of 7.2, calcium of 8.0. CPK of 37,539. IMPRESSION: 1. Severe acute tubular necrosis due to rhabdomyolysis. 2. Hyperphosphatemia and hypocalcemia related to rhabdomyolysis. 3. Hypervolemia, responded very well to dialysis with ultrafiltration. PLAN: 1. The patient to receive the fourth treatment of dialysis tomorrow and after that, dialysis every day and in between, we used to re-evaluate this patient's renal function in case of significant renal recovery to the point of not requiring renal replacement therapy. 2. Outpatient Nephrology followup status was discussed and strongly recommended. Job ID: [id number]
[2018-12-04] MEDS: Gabapentin 300 MG CAP PO SCH (21:26)
[2018-12-05 09:40] LABS: Albumin 3.5 g/dL (3.5-5.0); Anion Gap 18 mmol/L (10-20); BUN (Urea Nitrogen) 27 mg/dL (8.9-20.6); BUN/Creatinine Ratio 7.54; Calc. Creatinine Clearance 53 mL/min (70-130); Calcium 8.9 mg/dL (7.8-10.44); Carbon Dioxide 26 mmol/L (22-29); Chloride 96 mmol/L (98-107); Estimated GFR-MDRD 19; Glucose 94 mg/dL (70-105); Phosphorus 3.9 mg/dL (2.3-4.7); Potassium 3.6 mmol/L (3.5-5.1); Sodium 136 mmol/L (136-145)
[2018-12-05 10:10] LABS: CK (CPK) Greater than 40000 U/L (30-200)
[2018-12-05] MEDS: Heparin 5,000 UNITS/ML VIAL SC SCH ×2 (11:50→20:36)
[2018-12-05] MEDS: levETIRAcetam 500 MG TAB PO SCH ×2 (11:51→20:36)
[2018-12-05] MEDS: FLUoxetine HCl 10 MG CAP PO SCH (11:51)
[2018-12-05] MEDS: Aspirin 81 mg Enteric Coated Tablet PO SCH (11:51)
[2018-12-05] MEDS: Acetaminophen/Codeine 30-300mg Tablet PO PRN ×2 (11:54→19:19)
--- NOTE | 2018-12-05 16:21 | PDOC.HOSPP ---
- Subjective Subjective: Doing ok. No new problems. - Objective Vital Signs & Weight: Vital Signs (12 hours) Temp Pulse Resp BP Pulse Ox 12/05/18 11:48 98.5 F 88 16 131/63 99 12/05/18 11:30 98 Weight Weight 308 lb 9.6 oz I&O: 12/04/18 12/05/18 12/06/18 06:59 06:59 06:59 Intake Total 2060 2250 Output Total 3350 2225 Balance -1290 25 Result Diagrams: 12/04/18 05:01 12/05/18 09:00 Additional Labs: Accuchecks 12/05/18 12/05/18 12/04/18 11:59 05:14 20:13 POC Glucose 91 104 115 H 12/04/18 16:52 POC Glucose 196 H Hospitalist ROS - Medication Medications: Active Medications Generic Name Dose Route Start Last Admin Trade Name Freq PRN Reason Stop Dose Admin Acetaminophen 650 mg 11/29/18 11:44 11/30/18 08:09 Tylenol PO 650 mg Q4H PRN Administration Headache/Fever/Mild Pain (1-3) Acetaminophen/Codeine Phosphate 1 tab 11/30/18 10:33 12/05/18 11:54 Tylenol #3 PO 1 tab Q6H PRN Administration Pain Aspirin 81 mg 11/30/18 09:00 12/05/18 11:51 Ecotrin PO 81 mg DAILY GELACIO Administration Fluoxetine HCl 10 mg 11/30/18 09:00 12/05/18 11:51 Prozac PO 10 mg DAILY GELACIO Administration Gabapentin 300 mg 11/29/18 21:00 12/04/18 21:26 Neurontin PO 300 mg HS GELACIO Administration Heparin Sodium (Porcine) 5,000 units 12/05/18 09:00 12/05/18 11:50 Heparin SC 5,000 units BID GELACIO Administration Levetiracetam 500 mg 11/30/18 21:00 12/05/18 11:51 Keppra PO 500 mg BID GELACIO Administration Pantoprazole Sodium 40 mg 11/30/18 09:00 12/05/18 11:51 Protonix PO 40 mg DAILY GELACIO Administration Sodium Chloride 10 ml 11/29/18 21:00 12/05/18 11:51 Flush - Normal Saline IVF 10 ml Q12HR GELACIO Administration - Exam General Appearance: NAD, awake alert General - other findings: Morbidly obese. Heart: RRR, no murmur, no gallops, no rubs, normal peripheral pulses Respiratory: CTAB, no wheezes, no rales, no ronchi, normal chest expansion, no tachypnea, normal percussion Gastrointestinal: soft, non-tender, non-distended, normal bowel sounds, no palpable masses, no hepatomegaly, no splenomegaly, no bruit Skin: normal turgor Musculoskeletal: normal tone, generalized weakness Psychiatric: normal affect, normal behavior, A&O x 3 Hosp A/P (1) Acute renal failure Status: Acute Qualifiers: Acute renal failure type: with acute tubular necrosis Qualified Code(s): N17.0 - Acute kidney failure with tubular necrosis (2) Cocaine abuse Code(s): F14.10 - COCAINE ABUSE, UNCOMPLICATED Status: Acute (3) Metabolic acidosis Code(s): E87.2 - ACIDOSIS Status: Acute (4) Rhabdomyolysis Code(s): M62.82 - RHABDOMYOLYSIS Status: Acute Qualifiers: Rhabdomyolysis type: non-traumatic Qualified Code(s): M62.82 - Rhabdomyolysis (5) Acute metabolic encephalopathy Code(s): G93.41 - METABOLIC ENCEPHALOPATHY Status: Resolved (6) Chest pain Code(s): R07.9 - CHEST PAIN, UNSPECIFIED Status: Acute (7) Anxiety and depression Code(s): F41.9 - ANXIETY DISORDER, UNSPECIFIED; F32.9 - MAJOR DEPRESSIVE DISORDER, SINGLE EPISODE, UNSPECIFIED Status: Chronic (8) Dyslipidemia Code(s): E78.5 - HYPERLIPIDEMIA, UNSPECIFIED Status: Chronic (9) HTN (hypertension), benign Code(s): I10 - ESSENTIAL (PRIMARY) HYPERTENSION Status: Chronic (10) Morbid obesity with BMI of 45.0-49.9, adult Code(s): E66.01 - MORBID (SEVERE) OBESITY DUE TO EXCESS CALORIES; Z68.42 - BODY MASS INDEX (BMI) 45.0-49.9, ADULT Status: Chronic (11) Seizure disorder Code(s): G40.909 - EPILEPSY, UNSP, NOT INTRACTABLE, WITHOUT STATUS EPILEPTICUS Status: Chronic (12) Tobacco abuse Code(s): Z72.0 - TOBACCO USE Status: Chronic (13) Myocardial infarction Code(s): I21.9 - ACUTE MYOCARDIAL INFARCTION, UNSPECIFIED Status: Acute Qualifiers: Myocardial infarction type: type 2 Qualified Code(s): I21.A1 - Myocardial infarction type 2 - Plan Renal function declined to the point of requiring HD. HD initiated on 12/02. SOB resolved. CK level still very high. Continue fluids, HD. Will try to avoid opioids in a patient who present with acute cocaine intoxication and hx of abuse. Will need OP chair. IVONNE Benavides. HAY Elias. Will stay in the hospital until it is determined if he we need ongoing HD.
[2018-12-05] MEDS ORDERED: Heparin 10,000 UNITS/ 10 ML VIAL ONE (18:00)
[2018-12-05] MEDS: Gabapentin 300 MG CAP PO SCH (20:36)
[2018-12-06] MEDS: Acetaminophen/Codeine 30-300mg Tablet PO PRN ×2 (05:19→20:43)
[2018-12-06 08:06] LABS: Albumin 3.2 g/dL (3.5-5.0); Anion Gap 16 mmol/L (10-20); BUN (Urea Nitrogen) 43 mg/dL (8.9-20.6); BUN/Creatinine Ratio 9.27; Calc. Creatinine Clearance 38 mL/min (70-130); Calcium 8.7 mg/dL (7.8-10.44); Carbon Dioxide 26 mmol/L (22-29); Chloride 94 mmol/L (98-107); Estimated GFR-MDRD 14; Glucose 104 mg/dL (70-105); Phosphorus 6.6 mg/dL (2.3-4.7); Sodium 132 mmol/L (136-145)
[2018-12-06 08:27] LABS: CK (CPK) 12921 U/L (30-200)
--- NOTE | 2018-12-06 08:44 | PRG ---
DATE OF SERVICE: 12/05/2018 SUBJECTIVE: The patient was seen, seems to be doing much better, noted with the following vital signs. OBJECTIVE: VITAL SIGNS: Afebrile, temperature 99.3, pulse 78, respiratory rate 16, O2 saturation 97%, blood pressure 129/70. HEENT: Unremarkable. CARDIOVASCULAR: First and second heart sounds were heard. RESPIRATORY: Clear to auscultation. DIGESTIVE: Revealed benign abdomen with positive bowel sounds. EXTREMITIES: No peripheral edema. SKIN: No new gross rash. LYMPHATICS: No peripheral lymphadenopathy. IMPRESSION: Severe acute kidney injury in the context of rhabdomyolysis. PLAN: The patient dialyzed today and we will skip dialysis tomorrow. We will begin to re-evaluate renal function to know when the kidney is recovered to the point of not requiring further dialysis and also decision to transition over to . Job ID: [id number]
[2018-12-06] MEDS: levETIRAcetam 500 MG TAB PO SCH ×2 (09:12→20:43)
[2018-12-06] MEDS: FLUoxetine HCl 10 MG CAP PO SCH (09:12)
[2018-12-06] MEDS: Aspirin 81 mg Enteric Coated Tablet PO SCH (09:12)
[2018-12-06] MEDS: Heparin 5,000 UNITS/ML VIAL SC SCH ×2 (09:12→20:45)
--- NOTE | 2018-12-06 17:40 | PDOC.HOSPP ---
- Subjective Subjective: No complaints. Girlfriend in the room today and patient gave permission to discuss. Several questions regarding outpatient post-discharge plan. - Objective Vital Signs & Weight: Vital Signs (12 hours) Temp Pulse Resp BP Pulse Ox 12/06/18 15:55 99.2 F 79 13 158/76 H 97 12/06/18 11:22 98.7 F 78 20 143/82 H 95 12/06/18 08:10 98.4 F 72 18 146/71 H 98 Weight Weight 288 lb 4.8 oz I&O: 12/05/18 12/06/18 12/07/18 06:59 06:59 06:59 Intake Total 2250 2280 Output Total 2225 2350 900 Balance 25 -00 -900 Result Diagrams: 12/04/18 05:01 12/06/18 07:12 Additional Labs: Accuchecks 12/06/18 12/06/18 12/05/18 10:23 06:04 20:25 POC Glucose 151 H 133 H 142 H Hospitalist ROS - Medication Medications: Active Medications Generic Name Dose Route Start Last Admin Trade Name Freq PRN Reason Stop Dose Admin Acetaminophen 650 mg 11/29/18 11:44 11/30/18 08:09 Tylenol PO 650 mg Q4H PRN Administration Headache/Fever/Mild Pain (1-3) Acetaminophen/Codeine Phosphate 1 tab 11/30/18 10:33 12/06/18 05:19 Tylenol #3 PO 1 tab Q6H PRN Administration Pain Aspirin 81 mg 11/30/18 09:00 12/06/18 09:12 Ecotrin PO 81 mg DAILY GELACIO Administration Fluoxetine HCl 10 mg 11/30/18 09:00 12/06/18 09:12 Prozac PO 10 mg DAILY GELACIO Administration Gabapentin 300 mg 11/29/18 21:00 12/05/18 20:36 Neurontin PO 300 mg HS GELACIO Administration Heparin Sodium (Porcine) 5,000 units 12/05/18 09:00 12/06/18 09:12 Heparin SC 5,000 units BID GELACIO Administration Levetiracetam 500 mg 11/30/18 21:00 12/06/18 09:12 Keppra PO 500 mg BID GELACIO Administration Pantoprazole Sodium 40 mg 11/30/18 09:00 12/06/18 09:12 Protonix PO 40 mg DAILY GELACIO Administration Sodium Chloride 10 ml 10/02/19 21:00 12/06/18 09:12 Flush - Normal Saline IVF 10 ml Q12HR GELACIO Administration - Exam General Appearance: NAD, awake alert General - other findings: Morbidly obese. Heart: RRR, no murmur, no gallops, no rubs, normal peripheral pulses Respiratory: CTAB, no wheezes, no rales, no ronchi, normal chest expansion, no tachypnea, normal percussion Gastrointestinal: soft, non-tender, non-distended, normal bowel sounds, no palpable masses, no hepatomegaly, no splenomegaly, no bruit Skin: normal turgor Musculoskeletal: normal tone Psychiatric: normal affect, normal behavior, A&O x 3 Hosp A/P (1) Acute renal failure Status: Acute Qualifiers: Acute renal failure type: with acute tubular necrosis Qualified Code(s): N17.0 - Acute kidney failure with tubular necrosis (2) Cocaine abuse Code(s): F14.10 - COCAINE ABUSE, UNCOMPLICATED Status: Acute (3) Metabolic acidosis Code(s): E87.2 - ACIDOSIS Status: Acute (4) Rhabdomyolysis Code(s): M62.82 - RHABDOMYOLYSIS Status: Acute Qualifiers: Rhabdomyolysis type: non-traumatic Qualified Code(s): M62.82 - Rhabdomyolysis (5) Acute metabolic encephalopathy Code(s): G93.41 - METABOLIC ENCEPHALOPATHY Status: Resolved (6) Chest pain Code(s): R07.9 - CHEST PAIN, UNSPECIFIED Status: Acute (7) Anxiety and depression Code(s): F41.9 - ANXIETY DISORDER, UNSPECIFIED; F32.9 - MAJOR DEPRESSIVE DISORDER, SINGLE EPISODE, UNSPECIFIED Status: Chronic (8) Dyslipidemia Code(s): E78.5 - HYPERLIPIDEMIA, UNSPECIFIED Status: Chronic (9) HTN (hypertension), benign Code(s): I10 - ESSENTIAL (PRIMARY) HYPERTENSION Status: Chronic (10) Morbid obesity with BMI of 45.0-49.9, adult Code(s): E66.01 - MORBID (SEVERE) OBESITY DUE TO EXCESS CALORIES; Z68.42 - BODY MASS INDEX (BMI) 45.0-49.9, ADULT Status: Chronic (11) Seizure disorder Code(s): G40.909 - EPILEPSY, UNSP, NOT INTRACTABLE, WITHOUT STATUS EPILEPTICUS Status: Chronic (12) Tobacco abuse Code(s): Z72.0 - TOBACCO USE Status: Chronic (13) Myocardial infarction Code(s): I21.9 - ACUTE MYOCARDIAL INFARCTION, UNSPECIFIED Status: Acute Qualifiers: Myocardial infarction type: type 2 Qualified Code(s): I21.A1 - Myocardial infarction type 2 - Plan Renal function declined to the point of requiring HD. HD initiated on 12/02. SOB resolved. CK level significantly improved. Continue HD per nephrology. Will try to avoid opioids in a patient who present with acute cocaine intoxication and hx of abuse. IVONNE Benavides. HAY Elias. Will stay in the hospital until it is determined if he we need ongoing HD. Discussed in detail with the patient and his girlfriend.
--- NOTE | 2018-12-06 20:17 | PRG ---
DATE OF SERVICE: 12/06/2018 SUBJECTIVE: The patient is seen and examined. Noted with the following vital signs. OBJECTIVE: VITAL SIGNS: Afebrile, temperature 99.2, pulse 79, respiratory rate of 18, O2 saturations 97%, blood pressure 158/76. HEENT: Unremarkable. CARDIOVASCULAR: First and second heart sounds were heard. RESPIRATORY: Clear to auscultation. DIGESTIVE SYSTEM: Revealed a benign abdomen. Positive bowel sounds. EXTREMITIES: No peripheral edema. SKIN: No new gross rash. LYMPHATICS: No peripheral lymphadenopathy. IMPRESSION: Acute tubular necrosis in the context of severe rhabdomyolysis, initiated on dialysis. PLAN: 1. Dialysis is being held today to monitor the patient's renal recovery, tomorrow differ starting dialysis. We will re-evaluate the patient's renal function to see if significant renal recovery is occurring, at which point we will continue to hold dialysis until the final decision is made on whether the patient is coming off dialysis or will need outpatient dialysis. 2. Further management will be dependent on the clinical course. Job ID: [id number]
[2018-12-06] MEDS: Gabapentin 300 MG CAP PO SCH (20:43)
[2018-12-07] MEDS: Acetaminophen/Codeine 30-300mg Tablet PO PRN ×2 (04:48→20:07)
[2018-12-07 08:20] LABS: Albumin 3.4 g/dL (3.5-5.0); Anion Gap 17 mmol/L (10-20); BUN (Urea Nitrogen) 54 mg/dL (8.9-20.6); BUN/Creatinine Ratio 11.16; Calc. Creatinine Clearance 37 mL/min (70-130); Carbon Dioxide 25 mmol/L (22-29); Chloride 94 mmol/L (98-107); Estimated GFR-MDRD 13; Glucose 97 mg/dL (70-105); Phosphorus 6.9 mg/dL (2.3-4.7); Potassium 4.2 mmol/L (3.5-5.1); Sodium 132 mmol/L (136-145)
[2018-12-07 09:00] LABS: CK (CPK) 11147 U/L (30-200)
[2018-12-07] MEDS: Aspirin 81 mg Enteric Coated Tablet PO SCH (11:20)
[2018-12-07] MEDS: levETIRAcetam 500 MG TAB PO SCH ×2 (11:20→20:07)
[2018-12-07] MEDS: FLUoxetine HCl 10 MG CAP PO SCH (11:20)
[2018-12-07] MEDS: Heparin 5,000 UNITS/ML VIAL SC SCH ×2 (11:20→20:08)
[2018-12-07 15:09] VITALS: BMI 44.3
[2018-12-07] MEDS ORDERED: CEFAZOLIN 2 GM in Premix Bag 1 BAG IVPB SCH (16:15)
--- NOTE | 2018-12-07 18:00 | ULT ---
ULTRASOUND OF UPPER EXTREMITIES: 12/07/18 HISTORY: End-stage renal disease, vein mapping for dialysis. RIGHT UPPER EXTREMITY BRACHIAL ARTERY: 6 mm RADIAL ARTERY: 2.0 mm ULNAR ARTERY: 2.8 mm CEPHALIC VEIN Proximal Humerus: 5.4 mm Mid Humerus: 4.9 mm Distal Humerus: 5.3 mm Elbow: 5.3 mm Proximal Forearm: 2.4 mm Mid Forearm: 2.3 mm Distal Forearm: 2.5 mm BASILIC VEIN Proximal Humerus: 4.8 mm Mid Humerus: 5.1 mm Distal Humerus: 3.2 mm Elbow: 2.7 mm Proximal Forearm: 1.9 mm Mid Forearm: 1.9 mm Distal Forearm: 1.9 mm LEFT UPPER EXTREMITY BRACHIAL ARTERY: 5.7 mm RADIAL ARTERY: 2.2 mm ULNAR ARTERY: 2.3 mm CEPHALIC VEIN Proximal Humerus: 2.5 mm Mid Humerus: 3.1 mm Distal Humerus: 3.6 mm Elbow: 3.8 mm Proximal Forearm: 2.6 mm Mid Forearm: 1.9 mm Distal Forearm: 1.5 mm BASILIC VEIN Proximal Humerus: 4.4 mm Mid Humerus: 2.9 mm Distal Humerus: 3.3 mm Elbow: 3.1 mm Proximal Forearm: 1.4 mm Mid Forearm: 1.7 mm Distal Forearm: 1.5 mm IMPRESSION: Vein mapping as above. POS: TPC
--- NOTE | 2018-12-07 18:30 | PRG ---
DATE OF SERVICE: 12/07/2018 SUBJECTIVE: The patient is seen and examined with no new complaints. Noted with the following vital signs. OBJECTIVE: VITAL SIGNS: Afebrile, temperature 99.1, pulse 77, respiratory rate of 14, and O2 saturations are 99% with blood pressure 147/70. HEENT: Unremarkable. CARDIOVASCULAR SYSTEM: First and second heart sounds were heard. RESPIRATORY SYSTEM: Clear to auscultation. DIGESTIVE SYSTEM: Revealed a benign abdomen with positive bowel sounds. EXTREMITIES: Showed no peripheral edema. SKIN: No new gross rash. LYMPHATICS: No peripheral lymphadenopathy. LABORATORY INVESTIGATION: Significant for phosphorus of 6.9, and creatinine of 4.84 up from the creatinine of 4.64 from yesterday and was somewhat higher than yesterday. IMPRESSION: 1. Severe acute tubular necrosis, nonoliguric in the context of problem #2. 2. Severe rhabdomyolysis. 3. Morbid obesity. 4. Hyperphosphatemia related to problems listed above. PLAN: 1. The patient has shown some evidence of renal recovery; however, the renal function is still seriously lagging behind in terms of clearance in this patient. The patient will likely require several more weeks of dialysis prior to eventually hopefully coming off dialysis. Therefore, we will begin to make arrangement for outpatient dialysis placement while monitoring the kidney for potential recovery from this acute insult. In this regard, we will consult the access surgeon to place a tunneled dialysis catheter. Begin to coordinate with the rn field case manager for outpatient dialysis placement. 2. Further management will be dependent on the clinical course. Once the patient is accepted by outpatient dialysis facility, the patient can be discharged immediately. Job ID: [id number]
[2018-12-07] MEDS: Gabapentin 300 MG CAP PO SCH (20:07)
--- NOTE | 2018-12-07 22:04 | CON ---
DATE OF CONSULTATION: HISTORY OF PRESENT ILLNESS: A 43-year-old male patient, presents with renal failure. I have been asked by Dr. Laboy to place a hemodialysis catheter. He has a Trialysis catheter, right groin. The patient has short-term memory loss from a prior cocaine overdose. This was many years ago. His caregiver who lives with him for the past 9 years was involved in the conversation per telephone speaker phone. ALLERGIES: DILANTIN. SOCIAL HISTORY: Tobacco, none. Alcohol, occasionally every other day, none for the last month. PAST SURGICAL HISTORY: Noncontributory. PAST MEDICAL HISTORY: Hypertension, seizure disorder. MEDICATIONS: 1. Omeprazole. 2. Lipitor. 3. Gabapentin. 4. Topiramate. 5. Fluoxetine. 6. Reglan. 7. . 8. Keppra. REVIEW OF SYSTEMS: Noncontributory. PHYSICAL EXAMINATION: VITAL SIGNS: Height 5 feet 8 inches, weight 291 pounds, 44 BMI, temperature 99.1, pulse 77, blood pressure 147/70. LUNGS: Clear to auscultation. CARDIAC: Regular rate and rhythm without murmur or gallop. ABDOMEN: Soft, obese, nontender. Right groin, Trialysis catheter. EXTREMITIES: Palpable pedal pulses. Palpable radial pulses. No IVs in his arms. LABORATORY DATA: Hemoglobin 11, white count 13. Sodium 132, potassium 4.2, creatinine 4.84, BUN 54, GFR 13. ASSESSMENT AND PLAN: 1. Acute renal failure. His creatinine on admission was 2.54, has increased since admission. On 09/09/2018, it was 1. Plan to place a hemodialysis catheter tomorrow, central line to preserve his veins. If he does not have renal cautery, he may need a dialysis fistula in the future. We will order ultrasound vein mapping in case that is necessary, but we will not plan placement of that tomorrow. 2. History of alcohol and cocaine abuse in the past. 3. Hypertension. 4. Obesity. Job ID: [id number]
--- NOTE | 2018-12-07 22:28 | PDOC.HOSPP ---
- Subjective Subjective: Doing ok. No new complaints. Still reports back pain due to the hospital bed. - Objective Vital Signs & Weight: Vital Signs (12 hours) Temp Pulse Resp BP Pulse Ox 12/07/18 16:05 98.1 F 78 12 139/76 98 12/07/18 11:47 99.1 F 77 14 147/70 H 99 Weight Admit Weight 303 lb Weight 291 lb 6.392 oz I&O: 12/06/18 12/07/18 12/08/18 06:59 06:59 06:59 Intake Total 2280 2500 Output Total 2350 3950 875 Balance -70 -1450 -875 Result Diagrams: 12/04/18 05:01 12/08/18 05:47 Additional Labs: Accuchecks 12/07/18 12/07/18 12/07/18 20:57 16:33 11:22 POC Glucose 96 83 89 12/07/18 05:36 POC Glucose 94 Hospitalist ROS - Medication Medications: Active Medications Generic Name Dose Route Start Last Admin Trade Name Freq PRN Reason Stop Dose Admin Acetaminophen 650 mg 11/29/18 11:44 11/30/18 08:09 Tylenol PO 650 mg Q4H PRN Administration Headache/Fever/Mild Pain (1-3) Acetaminophen/Codeine Phosphate 1 tab 11/30/18 10:33 12/07/18 20:07 Tylenol #3 PO 1 tab Q6H PRN Administration Pain Aspirin 81 mg 11/30/18 09:00 12/07/18 11:20 Ecotrin PO 81 mg DAILY GELACIO Administration Fluoxetine HCl 10 mg 11/30/18 09:00 12/07/18 11:20 Prozac PO 10 mg DAILY GELACIO Administration Gabapentin 300 mg 11/29/18 21:00 12/07/18 20:07 Neurontin PO 300 mg HS GELACIO Administration Heparin Sodium (Porcine) 5,000 units 12/05/18 09:00 12/07/18 20:08 Heparin SC Not Given BID GELACIO Levetiracetam 500 mg 11/30/18 21:00 12/07/18 20:07 Keppra PO 500 mg BID GELACIO Administration Pantoprazole Sodium 40 mg 11/30/18 09:00 12/07/18 11:20 Protonix PO 40 mg DAILY GELACIO Administration Sodium Chloride 10 ml 11/29/18 21:00 12/07/18 20:09 Flush - Normal Saline IVF 10 ml Q12HR GELACIO Administration - Exam General Appearance: NAD, awake alert General - other findings: Morbidly obese. Neck: supple, symmetric, no JVD, no thyromegaly, no lymphadenopathy, no carotid bruit Heart: RRR, no murmur, no gallops, no rubs, normal peripheral pulses Respiratory: CTAB, no wheezes, no rales, no ronchi, normal chest expansion, no tachypnea, normal percussion Gastrointestinal: soft, non-tender, non-distended, normal bowel sounds, no palpable masses, no hepatomegaly, no splenomegaly, no bruit Skin: normal turgor Neurological: cranial nerve grossly intact, normal sensation to touch, no weakness, no focal deficits, no new deficit Musculoskeletal: normal tone Psychiatric: normal affect, normal behavior, A&O x 3 Hosp A/P (1) Acute renal failure Status: Acute Qualifiers: Acute renal failure type: with acute tubular necrosis Qualified Code(s): N17.0 - Acute kidney failure with tubular necrosis (2) Cocaine abuse Code(s): F14.10 - COCAINE ABUSE, UNCOMPLICATED Status: Acute (3) Metabolic acidosis Code(s): E87.2 - ACIDOSIS Status: Acute (4) Rhabdomyolysis Code(s): M62.82 - RHABDOMYOLYSIS Status: Acute Qualifiers: Rhabdomyolysis type: non-traumatic Qualified Code(s): M62.82 - Rhabdomyolysis (5) Acute metabolic encephalopathy Code(s): G93.41 - METABOLIC ENCEPHALOPATHY Status: Resolved (6) Chest pain Code(s): R07.9 - CHEST PAIN, UNSPECIFIED Status: Acute (7) Anxiety and depression Code(s): F41.9 - ANXIETY DISORDER, UNSPECIFIED; F32.9 - MAJOR DEPRESSIVE DISORDER, SINGLE EPISODE, UNSPECIFIED Status: Chronic (8) Dyslipidemia Code(s): E78.5 - HYPERLIPIDEMIA, UNSPECIFIED Status: Chronic (9) HTN (hypertension), benign Code(s): I10 - ESSENTIAL (PRIMARY) HYPERTENSION Status: Chronic (10) Morbid obesity with BMI of 45.0-49.9, adult Code(s): E66.01 - MORBID (SEVERE) OBESITY DUE TO EXCESS CALORIES; Z68.42 - BODY MASS INDEX (BMI) 45.0-49.9, ADULT Status: Chronic (11) Seizure disorder Code(s): G40.909 - EPILEPSY, UNSP, NOT INTRACTABLE, WITHOUT STATUS EPILEPTICUS Status: Chronic (12) Tobacco abuse Code(s): Z72.0 - TOBACCO USE Status: Chronic (13) Myocardial infarction Code(s): I21.9 - ACUTE MYOCARDIAL INFARCTION, UNSPECIFIED Status: Acute Qualifiers: Myocardial infarction type: type 2 Qualified Code(s): I21.A1 - Myocardial infarction type 2 - Plan Renal function declined to the point of requiring HD. HD initiated on 12/02. SOB resolved. CK level significantly improved. Continue HD per nephrology. Will try to avoid opioids in a patient who present with acute cocaine intoxication and hx of abuse. DW Dr. Elias. Will stay in the hospital until it is determined if he we need ongoing HD. Discussed in detail with the patient and his girlfriend. They had questions regarding diet, home care and warning signs. All questions were answered.
[2018-12-08 06:43] LABS: Albumin 3.4 g/dL (3.5-5.0); Anion Gap 18 mmol/L (10-20); BUN (Urea Nitrogen) 63 mg/dL (8.9-20.6); BUN/Creatinine Ratio 13.55; Calc. Creatinine Clearance 39 mL/min (70-130); Carbon Dioxide 22 mmol/L (22-29); Chloride 98 mmol/L (98-107); Estimated GFR-MDRD 14; Glucose 99 mg/dL (70-105); Phosphorus 7.1 mg/dL (2.3-4.7); Potassium 4.5 mmol/L (3.5-5.1); Sodium 133 mmol/L (136-145)
[2018-12-08 07:08] LABS: CK (CPK) 8477 U/L (30-200)
[2018-12-08] MEDS: Heparin 5,000 UNITS/ML VIAL SC SCH ×2 (09:51→20:17)
[2018-12-08] MEDS: Aspirin 81 mg Enteric Coated Tablet PO SCH (09:51)
[2018-12-08] MEDS: levETIRAcetam 500 MG TAB PO SCH ×2 (09:51→20:17)
[2018-12-08] MEDS: FLUoxetine HCl 10 MG CAP PO SCH (09:51)
[2018-12-08] MEDS ORDERED: READ PPD TEST SITE PO SCH (11:00)
[2018-12-08] MEDS ORDERED: Tuberculin PPD 0.1 ML VIAL I-DERMAL SCH (11:00)
[2018-12-08] MEDS ORDERED: Sodium Chloride 0.9% 20 ML ONE (13:42)
[2018-12-08] MEDS ORDERED: Lidocaine 2% PF 5 ML VIAL ONE (13:42)
[2018-12-08] MEDS ORDERED: Bupivacaine HCl 0.5%/Epinephrine 1:200,000/PF 30 ml Vial ONE (13:42)
[2018-12-08] MEDS ORDERED: Heparin 10,000 UNITS/1 ML VIAL ONE (13:42)
[2018-12-08] MEDS ORDERED: PROPOFOL 40 ML ONE (13:44)
[2018-12-08] MEDS ORDERED: Fentanyl 100 MCG/2 ML VIAL ONE (13:44)
[2018-12-08] MEDS ORDERED: Acetaminophen 500 MG TAB PO PRN (13:53)
[2018-12-08] MEDS ORDERED: traMADol HCl 50 MG TAB PO PRN (13:53)
[2018-12-08] MEDS ORDERED: Promethazine HCl 25 MG/ML VIAL IM PRN (14:52)
[2018-12-08] MEDS ORDERED: Promethazine HCl 25 MG/ML VIAL SLOW IVP PRN (14:52)
[2018-12-08] MEDS ORDERED: Ondansetron HCl/PF 4 MG/2 ML Vial IVP PRN (14:52)
--- NOTE | 2018-12-08 15:22 | RAD ---
RADIOGRAPH CHEST 1 VIEW: DATE: 12/08/2018 2:59 PM HISTORY: 43-year-old male status post central line placement. COMPARISON: 11/29/2018 FINDINGS: There are no airspace densities, pulmonary edema, pneumothorax, or cardiomegaly. The lateral costophr enic angles are sharp. There is a new double lumen dialysis catheter descending from the right medial neck, presumably IJ, with distal port tips overlying SVC/right atrial junction and upper right atrium. There is a new small caliber central catheter descending from the left neck, presumably in the left IJ, with distal tip overlying SVC. IMPRESSION: 1. No acute cardiopulmonary findings. 2. Status post right-sided hemodialysis catheter placement without pneumothorax. 3. Status post left sided central venous catheter placement without pneumothorax
--- NOTE | 2018-12-08 15:31 | OP ---
DATE OF PROCEDURE: 12/07/2018 PREOPERATIVE DIAGNOSES: End-stage renal disease, need of dialysis access, poor IV access. PROCEDURE PERFORMED: Right internal jugular cuffed tunneled hemodialysis catheter, AngioDynamics pre-curved, left IJ central line, ultrasound and fluoroscopy used. ANESTHESIA: TIVA, local 0.5% Marcaine with epinephrine 30 mL with 2% Xylocaine 10 mL. DESCRIPTION OF PROCEDURE: The patient was taken to the operating room. Under intravenous sedation, neck and chest prepared with ChloraPrep and draped in routine fashion. Local anesthetic mixture of 0.5% Marcaine with epinephrine 30 mL mixed with 2% Xylocaine infiltrated in the skin and subcutaneous tissue about the OpSite. Using ultrasound guidance, the right and left internal jugular veins were cannulated with trocar catheter, J-wire was threaded, trocar catheter removed. Skin site was enlarged sharply. Stab incision was made over the right chest. Using Seldinger technique, a triple-lumen catheter was placed over the left IJ and secured with 3-0 nylon suture. Biopatch sterile dressing was applied. Each port aspirated blood, flushed with saline solution. On the right side, the tunneling device was used to tunnel the pre-curved AngioDynamics cuffed-tunneled hemodialysis catheter between the 2 incisions, placed in the fabric cuff beneath the skin exit site. Catheter was secured with 2 interrupted suture of 3-0 nylon. Sterile dressings applied. Small and medium-sized dilators were placed over the J-wire and the internal jugular vein removed. Dilator and peel-away sheath placed with J-wire in the superior vena cava, and J-wire and dilator removed. Catheter was placed through the peel-away sheath. Peel-away sheath removed. Fluoroscopically, catheter was noted to be in good position. The platysma was approximated with 4-0 Monocryl, skin with subdermal 4-0 Monocryl and [place] glue applied. Each port aspirated blood, flushed with saline solution and heparinized saline solution with 1000 units of heparin per mL indicating volume in the port. Job ID: [id number]
[2018-12-08] MEDS ORDERED: traMADol HCl 50 MG TAB ONE (15:33)
[2018-12-08] MEDS: Acetaminophen/Codeine 30-300mg Tablet PO PRN (20:17)
[2018-12-08] MEDS: Gabapentin 300 MG CAP PO SCH (20:17)
[2018-12-09 08:25] LABS: Albumin 3.2 g/dL (3.5-5.0); Anion Gap 15 mmol/L (10-20); BUN (Urea Nitrogen) 60 mg/dL (8.9-20.6); Calc. Creatinine Clearance 22 mL/min (70-130); Calcium 8.7 mg/dL (7.8-10.44); Carbon Dioxide 24 mmol/L (22-29); Chloride 97 mmol/L (98-107); Estimated GFR-MDRD 18; Glucose 104 mg/dL (70-105); Phosphorus 5.7 mg/dL (2.3-4.7); Potassium 4.5 mmol/L (3.5-5.1); Sodium 131 mmol/L (136-145)
[2018-12-09 08:37] LABS: CK (CPK) 5942 U/L (30-200)
[2018-12-09 09:11] LABS: Band 7 % (5-11); Eosinophils 5 % (0-10); Hemoglobin 11.1 g/dL (14.0-18.0); Lymphocytes 19 % (21-51); MDiff Complete? YES; Mean Corpuscular HGB CONC 33.9 g/dL (32.0-36.0); Mean Corpuscular Volume 91.4 fL (78.0-98.0); Mean Platelet Volume 7.1 fL (7.4-10.4); Monocytes 1 % (0-10); Neutrophil 67 % (42-75); Platelet Count 120 thou/uL (130-400); RBC Distribution Width 12.5 % (11.5-14.5); Red Blood Cell (RBC) Count 3.59 mill/uL (4.70-6.10); White Blood Cell (WBC) Count 13.3 thou/uL (4.8-10.8)
[2018-12-09] MEDS ORDERED: Heparin 1,000 UNITS/ML VIAL ONE ×3 (11:11→18:48)
--- NOTE | 2018-12-09 13:00 | PDOC.HOSPP ---
- Subjective Encounter Date: 12/09/18 Encounter Time: 11:00 Subjective: is getting HD now, no sob c/o b/l feet numbness/tingling - Objective Vital Signs & Weight: Vital Signs (12 hours) Temp Pulse Resp BP Pulse Ox 12/09/18 11:13 97.8 F 76 18 145/79 H 99 12/09/18 04:00 98.0 F 80 18 168/77 H 98 Weight Admit Weight 303 lb Weight 133 lb 3.2 oz I&O: 12/08/18 12/09/18 12/10/18 06:59 06:59 06:59 Intake Total 240 1480 Output Total 875 300 Balance -635 1180 Result Diagrams: 12/09/18 08:09 12/09/18 08:00 Additional Labs: Accuchecks 12/09/18 12/09/18 12/08/18 05:58 00:34 20:48 POC Glucose 88 88 83 12/08/18 17:27 POC Glucose 158 H Hospitalist ROS - Medication Medications: Active Medications Generic Name Dose Route Start Last Admin Trade Name Freq PRN Reason Stop Dose Admin Acetaminophen/Codeine Phosphate 1 tab 11/30/18 10:33 12/08/18 20:17 Tylenol #3 PO 1 tab Q6H PRN Administration Pain Aspirin 81 mg 11/30/18 09:00 12/08/18 09:51 Ecotrin PO Not Given DAILY GELACIO Fluoxetine HCl 10 mg 11/30/18 09:00 12/08/18 09:51 Prozac PO 10 mg DAILY GELACIO Administration Gabapentin 300 mg 11/29/18 21:00 12/08/18 20:17 Neurontin PO 300 mg HS GELACIO Administration Heparin Sodium (Porcine) 5,000 units 12/05/18 09:00 12/08/18 20:17 Heparin SC 5,000 units BID GELACIO Administration Levetiracetam 500 mg 11/30/18 21:00 12/08/18 20:17 Keppra PO 500 mg BID GELACIO Administration Pantoprazole Sodium 40 mg 11/30/18 09:00 12/08/18 09:51 Protonix PO 40 mg DAILY GELACIO Administration Sodium Chloride 10 ml 11/29/18 21:00 12/08/18 20:48 Flush - Normal Saline IVF 10 ml Q12HR GELACIO Administration - Exam General Appearance: NAD, awake alert Eye: PERRL, anicteric sclera ENT: no oropharyngeal lesions, moist mucosa Neck: supple, no JVD Heart: RRR, no murmur Respiratory: no wheezes, no rales Gastrointestinal: soft, non-tender, non-distended, normal bowel sounds Extremities: no cyanosis, no edema Neurological: cranial nerve grossly intact, no focal deficits Psychiatric: normal affect, A&O x 3 Hosp A/P (1) Acute renal failure Status: Acute Qualifiers: Acute renal failure type: with acute tubular necrosis Qualified Code(s): N17.0 - Acute kidney failure with tubular necrosis (2) Cocaine abuse Code(s): F14.10 - COCAINE ABUSE, UNCOMPLICATED Status: Acute (3) Rhabdomyolysis Code(s): M62.82 - RHABDOMYOLYSIS Status: Acute Qualifiers: Rhabdomyolysis type: non-traumatic Qualified Code(s): M62.82 - Rhabdomyolysis (4) Metabolic acidosis Code(s): E87.2 - ACIDOSIS Status: Resolved (5) Anxiety and depression Code(s): F41.9 - ANXIETY DISORDER, UNSPECIFIED; F32.9 - MAJOR DEPRESSIVE DISORDER, SINGLE EPISODE, UNSPECIFIED Status: Chronic (6) Dyslipidemia Code(s): E78.5 - HYPERLIPIDEMIA, UNSPECIFIED Status: Chronic (7) HTN (hypertension), benign Code(s): I10 - ESSENTIAL (PRIMARY) HYPERTENSION Status: Chronic (8) Morbid obesity with BMI of 45.0-49.9, adult Code(s): E66.01 - MORBID (SEVERE) OBESITY DUE TO EXCESS CALORIES; Z68.42 - BODY MASS INDEX (BMI) 45.0-49.9, ADULT Status: Chronic (9) Seizure disorder Code(s): G40.909 - EPILEPSY, UNSP, NOT INTRACTABLE, WITHOUT STATUS EPILEPTICUS Status: Chronic (10) Tobacco abuse Code(s): Z72.0 - TOBACCO USE Status: Chronic (11) Acute metabolic encephalopathy Code(s): G93.41 - METABOLIC ENCEPHALOPATHY Status: Resolved - Plan is doing well on HD will add hydralazine for htn continue asp, increase gabapentin to bid, prozac, keppra Had right IJ tunneled HD cath renal usg shows normal size kidneys, normal echogenicity will likely need outpt HD chair for dc planning, urine output has progressively declined
[2018-12-09] MEDS: Aspirin 81 mg Enteric Coated Tablet PO SCH (13:14)
[2018-12-09] MEDS: FLUoxetine HCl 10 MG CAP PO SCH (13:14)
[2018-12-09] MEDS: levETIRAcetam 500 MG TAB PO SCH ×2 (13:14→20:13)
[2018-12-09] MEDS: Heparin 5,000 UNITS/ML VIAL SC SCH ×2 (13:15→20:13)
[2018-12-09] MEDS: hydrALAZINE 25 MG TAB PO SCH ×2 (15:22→20:10)
[2018-12-09] MEDS: Acetaminophen/Codeine 30-300mg Tablet PO PRN (15:24)
[2018-12-09] MEDS ORDERED: Heparin 1,000 UNITS/ML VIAL FS SCH (19:05)
--- NOTE | 2018-12-09 19:21 | DIS ---
DATE OF ADMISSION: 11/29/2018 DATE OF DISCHARGE: 12/09/2018 DISCHARGE DISPOSITION: Home. PRIMARY DISCHARGE DIAGNOSES: Acute renal failure with patient initialized on hemodialysis. Severe rhabdomyolysis, resolving. Cocaine abuse. Metabolic acidosis due to renal failure, stable after being placed on dialysis. Hypertension, morbid obesity, seizure disorder, anxiety, depression, tobacco abuse. Acute metabolic encephalopathy on arrival, resolved. PROCEDURES DONE DURING HOSPITALIZATION: Lumbar spine CT showed no acute fracture or subluxation. There is prominent bulging/protruding disk at the L4-L5 causing moderate central spinal canal stenosis. Chest x-ray done showed no acute cardiopulmonary disease. Echo with 2D Doppler showed ejection fraction of 60% to 65%. Ultrasound kidneys done on 12/01/2018, was unremarkable. Had placement of a right femoral dialysis catheter on 12/03/2018, by Dr. Jada Laboy. The patient has right tunneled internal jugular cuffed hemodialysis catheter placed on 12/07/2018, by Dr. Renae. H and H 11 and 32, platelet count 120, white count of 13 this morning. Discharge BUN and creatinine are 60 and 3.6. Admitting creatinine was 2.4 with progressive worsening and peaking up to 7.83 on the . CK levels were greater than 40,000 for nearly 5 days after hospitalization, initial level was 26,683 on admission. DISCHARGE MEDICATIONS: 1. Gabapentin 300 mg p.o. twice daily. 2. Hydralazine 25 mg three times daily. 3. Keppra 500 mg p.o. twice daily. 4. Reglan 5 mg p.o. 4 times daily p.r.n. for nausea, vomiting. 5. Omeprazole 20 mg daily. 6. Fluoxetine 20 mg daily. ALLERGIES: PHENYTOIN AND WASP VENOM. INPATIENT CONSULT: Dr. Laboy for Nephrology. DISCHARGE PLAN: The patient to follow up with his primary care physician, Ms. Ksenia Page, nurse practitioner in 1 week. He also needs to follow up with Dr. Renae in 2 to [address] Laboy in 1 week. BRIEF COURSE DURING HOSPITALIZATION: The patient initially got admitted on the after he apparently passed out on the floor in his restroom. He had unknown down time. He had severe rhabdomyolysis with CK levels more than 26,000 on arrival. Initial creatinine was 2.5. This CK levels peaked up to more than 40,000 in 12 hours, and had progressive worsening of his renal function and creatinine levels peaking up to 7.8 on the . He has had Nephrology consultation with Dr. Laboy. The patient was aggressively hydrated, despite which he had to be initiated on hemodialysis. His urine output has been progressively declining and has come down to nearly 300 mL in the last 24 hours. He has had nearly 4 sessions of hemodialysis. Outpatient hemodialysis chair has been set up at [facility]. He will have his outpatient dialysis on Tuesday. He has been cleared by safety representative, Dr. Laboy for discharge. Please see a [id number] documentation on [facility] for the day of discharge. Job ID: [id number]
[2018-12-09 20:15] VITALS: BP 141/71; TEMP 97.9
[2018-12-09] MEDS ORDERED: Gabapentin 300 MG CAP PO SCH (21:00)
[2018-12-10 00:21] LABS: HBSAg Index 0.12 S/CO (0-0.99); Hep B Core Total Ab Non-Reactive (NonReactive); Hep B Core Total Index 0.15 S/CO (0-0.79); Hep B Surf Ag Non-Reactive S/CO (NonReactive)
[2018-12-10 00:37] LABS: Hep B Surf AB Non-Reactive (NonReactive); Hep C IgG Ab Non-Reactive (NonReactive); Hep C Index 0.07 S/CO (0-0.79)
--- NOTE | 2018-12-10 01:44 | EKG ---
Test Reason : ER Blood Pressure : / mmHG Vent. Rate : 136 BPM Atrial Rate : 136 BPM P-R Int : 000 ms QRS Dur : 096 ms QT Int : 372 ms P-R-T Axes : 000 -08 030 degrees QTc Int : 559 ms Supraventricular tachycardia Cannot rule out Inferior infarct , age undetermined No STEMI Abnormal ECG Confirmed by VALARIE SANTACRUZ M.D. ([id number]), editor farm journal [facility] ([id number]) on 12/10/2018 1:44:25 AM Referred By: Confirmed By:VALARIE SANTACRUZ M.D.
--- NOTE | 2018-12-10 13:47 | PRG ---
DATE OF SERVICE: 12/09/2018 SUBJECTIVE: The patient is seen and examined, noted with the following vital signs. OBJECTIVE: VITAL SIGNS: Afebrile, temperature 97.9, pulse 93, respiratory rate of 17, O2 saturation 98% with blood pressure 147/70. HEENT: Unremarkable except for a triple-lumen catheter in place as well as the dialysis catheter in place. RESPIRATORY SYSTEM: Clear to auscultation. DIGESTIVE SYSTEM: Revealed benign abdomen. Positive bowel sounds. EXTREMITIES: No peripheral edema. SKIN: No new gross rash. LYMPHATICS: No peripheral lymphadenopathy. IMPRESSION: 1. Acute tubular necrosis in the context of problem #2. 2. Severe rhabdomyolysis. 3. Morbid obesity. PLAN: 1. From the renal standpoint, the patient is due for discharge as outpatient dialysis has been arranged. 2. We will continue to monitor the renal function as an outpatient vis-a-vis the possibility of renal recovery to the point of coming of dialysis. 3. Avoid potentially nephrotoxic agents. 4. Further management to be dependent on the clinical course. We will discontinue triple-lumen catheter to enable this patient to go home. Job ID: [id number]
--- NOTE | 2018-12-12 08:37 | PQF ---
[employer] Reports [employer] DAVID Guerrero JR, VINAYA KUMAR MD [id number] CLINICAL DOCUMENTATION CLARIFICATION FORM: POST DISCHARGE Addendum to original discharge summary date: ____ Late entry note date: __ DATE: 12/12/2018 ATTN: LUIS TOPETE MD Please exercise your independent, professional judgment in responding to the clarification form. Clinical indicators are provided on the bottom of this form for your review Please check appropriate box(s): [ ] ABDIRAHMAN due to Cocaine Overdose [ ] ABDIRAHMAN due to Cocaine Abuse [ ] ABDIRAHMAN due to Dehydration [ ] ABDIRAHMAN unspecified cause [ x ] Other diagnosis: ABDIRAHMAN due to severe rhabdomyolysis [ ] Unable to determine For continuity of documentation, please document condition throughout progress notes and discharge summary. Thank You. CLINICAL INDICATORS - SIGNS / SYMPTOMS / LABS - Severe dehydration, Acute kidney injury, severe rhabdomyolysis-H&P, 11/29, LUIS TOPETE MD - he had a gram of cocaine yesterday-H&P, 11/29, LUIS TOPETE MD - Acute encephalopathy due to substance use-H&P, 11/29, LUIS TOPETE MD - Cocaine overdose-H&P, 11/29, LUIS TOPETE MD - known history of chronic cocaine abuse-H&P, 11/29, LUIS TOPETE MD - Metabolic acidosis due to ABDIRAHMAN-DS, 12/09, LUIS TOPETE MD RISKS: - Abused cocaine, marijuana-ED record, 11/29, Citlalli Sterling RN - Acute rhabdomyolysis -H&P, 11/29, LUIS TOPETE MD - Acute metabolic encephalopathy-DS, 12/09, LUIS TOPETE MD TREATMENT: -Keppra dose will reduced in view on ABDIRAHMAN-H&P, 11/29, LUIS TOPETE MD -Initialized on hemodialysis-DS, 12/09, LUIS TOPETE MD -Sodium chloride.IV-MAR, 11/29 (This form is maintained as a part of the permanent medical record) 2014 [employer], [employer]. All Rights Reserved Madyson Green [not provided] [not provided] MTDD
== END 2018-12-09 21:00 | disposition home or self-care (01) | DRG 673 ==
LOC: ERS 04:16 → ERHOLD 06:12 → 2SE 11-30 09:52 → 2NO 12-01 22:11
PROVIDERS: ADMIT Internal Medicine; ATTEND Internal Medicine
PROC: 02HV33Z Insertion of Infusion Device into Superior Vena Cava, Percutaneous Approach (ICD-10-PCS; principal; 2018-12-05)
PROC: 5A1D70Z Performance of Urinary Filtration, Intermittent, Less than 6 Hours Per Day (ICD-10-PCS; 2018-12-05)
PROC: 0JH63XZ Insertion of Tunneled Vascular Access Device into Chest Subcutaneous Tissue and Fascia, Percutaneous Approach (ICD-10-PCS; 2018-12-07)
PROC: 05HN33Z Insertion of Infusion Device into Left Internal Jugular Vein, Percutaneous Approach (ICD-10-PCS; 2018-12-07)
PROC: B544ZZA Ultrasonography of Left Jugular Veins, Guidance (ICD-10-PCS; 2018-12-07)
PROC: B5141ZA Fluoroscopy of Left Jugular Veins using Low Osmolar Contrast, Guidance (ICD-10-PCS; 2018-12-07)
DX: N17.0 Acute kidney failure with tubular necrosis (principal); G92 Toxic encephalopathy; I21.A1 Myocardial infarction type 2; M62.82 Rhabdomyolysis; E87.2 Acidosis; F10.239 Alcohol dependence with withdrawal, unspecified; Z68.42 Body mass index [BMI] 45.0-49.9, adult; E87.1 Hypo-osmolality and hyponatremia; T40.5X1A Poisoning by cocaine, accidental (unintentional), initial encounter; J45.909 Unspecified asthma, uncomplicated; I50.9 Heart failure, unspecified; I11.0 Hypertensive heart disease with heart failure; E86.0 Dehydration; G40.909 Epilepsy, unspecified, not intractable, without status epilepticus; F14.129 Cocaine abuse with intoxication, unspecified; I25.10 Atherosclerotic heart disease of native coronary artery without angina pectoris; E66.01 Morbid (severe) obesity due to excess calories; F41.9 Anxiety disorder, unspecified; E83.39 Other disorders of phosphorus metabolism; E83.51 Hypocalcemia; E86.1 Hypovolemia; E87.5 Hyperkalemia; F32.9 Major depressive disorder, single episode, unspecified; I25.2 Old myocardial infarction; Z86.73 Personal history of transient ischemic attack (TIA), and cerebral infarction without residual deficits; Z88.8 Allergy status to other drugs, medicaments and biological substances
CPT/HCPCS: 36415; 36416; 71045; 72131; 76770; 80053; 80069; 80307; 82550; 82553; 83605; 84484; 85025; 86580; 86704; 86706; 86803; 87340; 90935; 93005; 93306; 93970; 96361; 96372; 96374; 96376; C1752; G0257; G0365; J0670; J0690; J1644; J1650; J2001; J2060; J2704; J2997; J3010; J3360; J3486; J7070

== ENCOUNTER 2018-12-11 18:23 | Emergency (ER) | payer MEDICARE, MEDICAID ==
[2018-12-11 19:12] LABS: #Basophils 0.1 thou/uL (0.0-0.2); #Eosinphils 0.6 thou/uL (0.0-0.7); #Lymphocytes 1.9 thou/uL (1.20-3.40); #Monocytes 1.3 thou/uL (0.11-0.59); #Neutrophils 11.5 thou/uL (1.40-6.50); %Basophils 0.4 % (0.0-1.0); %Eosinophils 3.9 % (0.0-10.0); %Lymphocytes 12.1 % (21.0-51.0); %Monocytes 8.2 % (0.0-10.0); %Neutrophils 75.4 % (42.0-75.0); Hemoglobin 11.4 g/dL (14.0-18.0); Mean Corpuscular HGB CONC 34.3 g/dL (32.0-36.0); Mean Corpuscular Hemoglobin 30.9 pg (27.0-31.0); Mean Corpuscular Volume 90.3 fL (78.0-98.0); Mean Platelet Volume 7.1 fL (7.4-10.4); Platelet Count 127 thou/uL (130-400); RBC Distribution Width 12.4 % (11.5-14.5); White Blood Cell (WBC) Count 15.3 thou/uL (4.8-10.8)
--- NOTE | 2018-12-11 19:12 | RAD ---
FRONTAL RADIOGRAPH CHEST: Date: 12-11-18 Comparison: 12-08-18 History: Generalized weakness. FINDINGS: Stable right sided vascular catheter. Heart and mediastinal contours are stable. The lungs are clear. IMPRESSION: No acute findings. POS: YOUSIF
[2018-12-11 19:33] LABS: ALT (SGPT) 52 U/L (8-55); AST (SGOT) 108 U/L (5-34); Albumin 3.7 g/dL (3.5-5.0); Alkaline Phosphatase 113 U/L (40-110); Anion Gap 16 mmol/L (10-20); BUN (Urea Nitrogen) 30 mg/dL (8.9-20.6); Bilirubin, Total 0.7 mg/dL (0.2-1.2); Calc. Creatinine Clearance 0 mL/min (70-130); Calcium 8.9 mg/dL (7.8-10.44); Carbon Dioxide 27 mmol/L (22-29); Chloride 99 mmol/L (98-107); Estimated GFR-MDRD 30; Globulin 3.7 g/dL (2.4-3.5); Glucose 105 mg/dL (70-105); Potassium 4.3 mmol/L (3.5-5.1); Protein, Total 7.4 g/dL (6.0-8.3); Sodium 138 mmol/L (136-145)
[2018-12-11 19:47] LABS: CK (CPK) 5474 U/L (30-200)
[2018-12-11 20:39] LABS: Acetaminophen Less than 6.0 mcg/mL (10.0-30.0); Alcohol Less than 10 mg/dL (Less than 10); Salicylate Less than 8.0 mg/dL (15.0-30.0)
[2018-12-11] MEDS ORDERED: ALPRAZolam 0.5 MG TAB ONE (20:46)
[2018-12-11] MEDS ORDERED: Morphine 4 MG/ML VIAL ONE (20:46)
[2018-12-11] MEDS ORDERED: Ondansetron PF 4 MG/2 ML Vial ONE (20:46)
--- NOTE | 2018-12-11 21:23 | CT ---
EXAM: Abdomen and pelvic CT scan with contrast: HISTORY: Pain COMPARISON: 08/12/2016 FINDINGS: The visualized lung bases are clear. Liver: Unremarkable. Gallbladder: Moderate distention of the gallbladder Pancreas: Unremarkable Spleen: Unremarkable. Adrenal glands: Unremarkable. Kidneys: No renal calculus or acute obstruction. Punctate laterally located hypodensity of right k idney is stable, remaining too small to definitively characterize. Bowel: Limited assessment without enteric contrast. No obstruction evident. Mild colonic diverticulos is. Urinary Bladder: Mild distention, limiting assessment. Adenopathy: No adenopathy within the abdomen or pelvis. Patulous noninflamed fat-containing inguinal rings, bilaterally. Free Air: No free air. Ascites: No ascites. Osseous structures: No acute osseous abnormalities. IMPRESSION: No acute abnormalities are identified.
[2018-12-11 23:01] LABS: Medtox Control Line Valid? VALID (VALID); Medtox Reader # READER 4
[2018-12-11 23:03] LABS: Amphetamine Not Detected (NotDetected); Barbiturates Screen Not Detected (NotDetected); Benzodiazepine Screen Detected (NotDetected); Cocaine Metabolite Screen Detected (NotDetected); Methadone Not Detected (NotDetected); Methamphetamine Not Detected (NotDetected); Opiate Screen Detected (NotDetected); Oxycodone Screen Not Detected (NotDetected); Phencyclidine (PCP) Not Detected (NotDetected); THC/Cannabinoid Screen Not Detected (NotDetected); Tricyclic Screen Not Detected (NotDetected)
== END 2018-12-11 23:40 | disposition home or self-care (01) ==
LOC: ERS 18:23
DX: M62.82 Rhabdomyolysis (principal); M54.5 Low back pain; F14.10 Cocaine abuse, uncomplicated; N19 Unspecified kidney failure; I50.9 Heart failure, unspecified; J45.909 Unspecified asthma, uncomplicated; I25.2 Old myocardial infarction; F41.9 Anxiety disorder, unspecified; F32.9 Major depressive disorder, single episode, unspecified; F17.220 Nicotine dependence, chewing tobacco, uncomplicated; I11.0 Hypertensive heart disease with heart failure
CPT/HCPCS: 36415; 71045; 74177; 80053; 80306; 80307; 82550; 84484; 85025; 93005; 96361; 96374; 96375; J2270; J2405

== ENCOUNTER 2018-12-29 11:19 | Emergency (ER) | payer MEDICARE, MEDICAID ==
[2018-12-29 11:53] LABS: Bilirubin Negative (Negative); Blood, Urine Negative (Negative); Clarity Clear (Clear); Glucose, Urine (Dipstick) Normal (Negative); Leukocyte Negative Leu/uL (Negative); Nitrite Negative (Negative); Protein, Urine (Dipstick) 10 mg/dL (Neg-Trace); Urobilinogen Normal mg/dL (Less than 2)
[2018-12-29 12:15] LABS: #Basophils 0.1 thou/uL (0.0-0.2); #Eosinphils 0.2 thou/uL (0.0-0.7); #Lymphocytes 1.9 thou/uL (1.20-3.40); #Monocytes 0.7 thou/uL (0.11-0.59); %Basophils 0.8 % (0.0-1.0); %Eosinophils 3.4 % (0.0-10.0); %Lymphocytes 27.9 % (21.0-51.0); %Monocytes 9.8 % (0.0-10.0); %Neutrophils 58.1 % (42.0-75.0); Hemoglobin 10.5 g/dL (14.0-18.0); Mean Corpuscular HGB CONC 33.8 g/dL (32.0-36.0); Mean Corpuscular Hemoglobin 30.7 pg (27.0-31.0); Mean Corpuscular Volume 90.8 fL (78.0-98.0); Mean Platelet Volume 7.1 fL (7.4-10.4); Platelet Count 286 thou/uL (130-400); RBC Distribution Width 12.5 % (11.5-14.5); Red Blood Cell (RBC) Count 3.43 mill/uL (4.70-6.10)
[2018-12-29 12:39] LABS: ALT (SGPT) 22 U/L (8-55); AST (SGOT) 23 U/L (5-34); Albumin 3.9 g/dL (3.5-5.0); Alkaline Phosphatase 151 U/L (40-110); Anion Gap 13 mmol/L (10-20); BUN (Urea Nitrogen) 14 mg/dL (8.9-20.6); Bilirubin, Total 0.4 mg/dL (0.2-1.2); Calc. Creatinine Clearance 0 mL/min (70-130); Calcium 8.4 mg/dL (7.8-10.44); Carbon Dioxide 20 mmol/L (22-29); Chloride 111 mmol/L (98-107); Estimated GFR-MDRD 59; Glucose 104 mg/dL (70-105); Lipase 40 U/L (8-78); Potassium 3.8 mmol/L (3.5-5.1); Protein, Total 6.9 g/dL (6.0-8.3); Sodium 140 mmol/L (136-145)
--- NOTE | 2018-12-29 13:06 | CT ---
CT head noncontrast HISTORY: Altered mental status. Headache. COMPARISON: 09/07/2018. FINDINGS: There is no evidence of acute intracranial hemorrhage or infarct. The ventricles appear nor mal in size, shape and position. There is no mass effect or shift of midline structures. Visualized paranasal sinuses remain well-aerated. IMPRESSION: No acute intracranial abnormalities are demonstrated.
--- NOTE | 2018-12-29 14:08 | RAD ---
XR Chest 1 View Portable History: Headache numbness chest pain Comparison: Chest radiograph December 18, 2018 Findings: Heart size mildly enlarged. Lungs are hypoinflated. No pneumothorax or effusion. No conflue nt airspace consolidation. No acute osseous abnormality. Impression: No acute intrathoracic abnormality.
[2018-12-29 14:25] LABS: Benzodiazepine Screen Detected (NotDetected); Medtox Reader # READER 4; Opiate Screen Detected (NotDetected)
[2018-12-29 14:26] LABS: Amphetamine Not Detected (NotDetected); Barbiturates Screen Not Detected (NotDetected); Cocaine Metabolite Screen Not Detected (NotDetected); Medtox Control Line Valid? VALID (VALID); Methadone Not Detected (NotDetected); Methamphetamine Not Detected (NotDetected); Oxycodone Screen Not Detected (NotDetected); Phencyclidine (PCP) Not Detected (NotDetected); THC/Cannabinoid Screen Not Detected (NotDetected); Tricyclic Screen Not Detected (NotDetected)
== END 2018-12-29 17:01 | disposition home or self-care (01) ==
LOC: ERS 11:19
DX: R53.1 Weakness (principal); M54.5 Low back pain; J45.909 Unspecified asthma, uncomplicated; I11.0 Hypertensive heart disease with heart failure; I50.9 Heart failure, unspecified; I25.2 Old myocardial infarction; F41.9 Anxiety disorder, unspecified; F32.9 Major depressive disorder, single episode, unspecified; F17.220 Nicotine dependence, chewing tobacco, uncomplicated; Z79.899 Other long term (current) drug therapy; Z79.2 Long term (current) use of antibiotics; Z86.73 Personal history of transient ischemic attack (TIA), and cerebral infarction without residual deficits
CPT/HCPCS: 36415; 70450; 71045; 80053; 80306; 81003; 83690; 83880; 84484; 85025; 93005

== ENCOUNTER 2019-03-30 19:58 | Observation (INO) | payer MEDICARE, MEDICAID ==
[2019-03-30 20:45] LABS: #Basophils 0.1 thou/uL (0.0-0.2); #Eosinphils 0.1 thou/uL (0.0-0.7); #Lymphocytes 2.9 thou/uL (1.20-3.40); #Neutrophils 5.3 thou/uL (1.40-6.50); %Basophils 0.7 % (0.0-1.0); %Eosinophils 1.2 % (0.0-10.0); %Lymphocytes 31.1 % (21.0-51.0); %Monocytes 10.7 % (0.0-10.0); %Neutrophils 56.4 % (42.0-75.0); Hemoglobin 13.5 g/dL (14.0-18.0); Mean Corpuscular HGB CONC 32.2 g/dL (32.0-36.0); Mean Corpuscular Hemoglobin 28.2 pg (27.0-31.0); Mean Corpuscular Volume 87.7 fL (78.0-98.0); Mean Platelet Volume 8.1 fL (7.4-10.4); Platelet Count 275 thou/uL (130-400); RBC Distribution Width 12.4 % (11.5-14.5); Red Blood Cell (RBC) Count 4.77 mill/uL (4.70-6.10); White Blood Cell (WBC) Count 9.5 thou/uL (4.8-10.8)
--- NOTE | 2019-03-30 20:56 | CT ---
CT Brain WO Con: 03/30/2019 8:25 PM CLINICAL HISTORY: Left face and arm tingling. IMAGING TECHNIQUE: Multiple CT images were obtained of the brain without IV contrast. COMPARISON: December 29, 2018 FINDINGS: Brain: No acute infarct or hemorrhage is evident. No midline shift. Ventricles: Normal. No hydrocephalus. Skull: Intact. Visualized Paranasal sinuses: Clear. Mastoid air cells:Clear. Extracranial soft tissues:Normal. IMPRESSION: No acute intracranial abnormality.
[2019-03-30 21:05] LABS: ALT (SGPT) 34 U/L (8-55); AST (SGOT) 29 U/L (5-34); Albumin 4.1 g/dL (3.5-5.0); Alkaline Phosphatase 146 U/L (40-110); Anion Gap 10 mmol/L (10-20); BUN (Urea Nitrogen) 10 mg/dL (8.9-20.6); Bilirubin, Total 0.3 mg/dL (0.2-1.2); Calc. Creatinine Clearance 0 mL/min (70-130); Carbon Dioxide 22 mmol/L (22-29); Chloride 110 mmol/L (98-107); Estimated GFR-MDRD 72; Glucose 128 mg/dL (70-105); Potassium 3.8 mmol/L (3.5-5.1); Protein, Total 7.1 g/dL (6.0-8.3); Sodium 138 mmol/L (136-145)
--- NOTE | 2019-03-30 21:49 | CT ---
EXAM: CT Thoracic Spine WO Con DATE: 03/30/2019 8:49 PM INDICATION: Fall with back pain COMPARISON: Prior CT of the thorax dated August 30, 2013 FINDING: No acute fracture or subluxation demonstrated. There is scattered degenerative and osteoart hritic change present. Visualized lungs are clear. Visualized paravertebral soft tissues appear within normal limits. IMPRESSION:No acute fracture or subluxation demonstrated.
--- NOTE | 2019-03-30 21:52 | CT ---
EXAM: CT Lumbar Spine WO Con DATE: 03/30/2019 8:49 PM INDICATION: Fall with back pain COMPARISON: CT lumbar spine dated December 09, 2018 FINDING: No acute fracture or subluxation demonstrated. There is scattered degenerative and osteoart hritic change present. There is partial sacralization of L5. Disc osteophyte complex at L4-5 appears similar appearing. Spinal alignment is preserved. Visualized aspects of the retroperitoneum a nd paravertebral soft tissues appear within normal limits. IMPRESSION:No acute fracture or subluxation demonstrated.
[2019-03-30] MEDS ORDERED: Aspirin 325 MG TAB ONE (22:02)
[2019-03-30] MEDS ORDERED: Ketorolac Tromethamine 30 MG/ML VIAL ONE (22:03)
[2019-03-31 00:30] VITALS: BMI 45.9
[2019-03-31] MEDS ORDERED: Cyclobenzaprine 10 MG TAB PO PRN (01:50)
[2019-03-31] MEDS ORDERED: tiZANidine HCl 4 MG TAB PO PRN (01:50)
[2019-03-31] MEDS ORDERED: Ondansetron PF 4 MG/2 ML Vial IVP PRN (01:51)
[2019-03-31] MEDS ORDERED: Morphine 2 MG/ML SYRINGE SLOW IVP PRN (01:51)
[2019-03-31] MEDS ORDERED: Labetalol HCl 100 MG/20 ML VIAL SLOW IVP PRN (01:51)
[2019-03-31] MEDS ORDERED: hydrALAZINE 20 MG/ML VIAL SLOW IVP PRN (01:51)
[2019-03-31] MEDS ORDERED: Promethazine HCl 12.5 MG in Sodium Chloride 0.9% 50 ML IVPB PRN (01:51)
[2019-03-31] MEDS ORDERED: Enalaprilat Dihydrate 1.25 MG/ML VIAL SLOW IVP PRN (01:51)
--- NOTE | 2019-03-31 04:39 | PDOC.HHP ---
Hospitalist Results - Labs Result Diagrams: 03/30/19 20:33 03/30/19 20:33 Lab results: WBC 9.5 thou/uL (4.8-10.8) 03/30/19 20: Hgb 13.5 g/dL (14.0-18.0) L 03/30/19 20:33 Hct 41.9 % (42.0-52.0) L 03/30/19 20: MCV 87.7 fL (78.0-98.0) 03/30/19 20: Plt Count 275 thou/uL (130-400) 03/30/19 20: Neutrophils % 56.4 % (42.0-75.0) 03/30/19 20: Sodium 138 mmol/L (136-145) 03/30/19 20: Potassium 3.8 mmol/L (3.5-5.1) 03/30/19 20: Chloride 110 mmol/L (98-107) H 03/30/19 20: Carbon Dioxide 22 mmol/L (22-29) 03/30/19 20: BUN 10 mg/dL (8.9-20.6) 03/30/19 20: Creatinine 1.11 mg/dL (0.7-1.3) 03/30/19 20: Glucose 128 mg/dL (70-105) H 03/30/19 20: Calcium 9.0 mg/dL (7.8-10.44) 03/30/19 20: Total Bilirubin 0.3 mg/dL (0.2-1.2) 03/30/19 20: AST 29 U/L (5-34) 03/30/19 20:33 ALT 34 U/L (8-55) 03/30/19 20:33 Alkaline Phosphatase 146 U/L (40-110) H 03/30/19 20: Troponin I Less than 0.010 ng/mL (< 0.028) 03/30/19 20: Serum Total Protein 7.1 g/dL (6.0-8.3) 03/30/19 20: Albumin 4.1 g/dL (3.5-5.0) 03/30/19 20:33
[2019-03-31] MEDS ORDERED: Acetaminophen 325 MG TAB PO PRN (08:52)
--- NOTE | 2019-03-31 11:03 | MRI ---
MRI BRAIN NONCONTRAST: DATE: 03/31/2019 HISTORY: 44-year-old male with TIA. Left facial and left upper extremity paresthesia. Bilateral lower extremit y weakness. COMPARISON: 12/26/2014 MRI. FINDINGS: The ventricles are normal in size and configuration. There is no major intra-axial signal abnormality , restricted diffusion, midline shift or any other mass effect, recent intra-axial hemorrhage, or extra-axial fluid collection. There is symmetrical parenchymal volume loss of the bilateral cerebella r hemispheres. There is no significant volume loss of the brainstem. There is no interval change overall. IMPRESSION: 1. Cerebellar atrophy. Common causes include chronic ethanol abuse and chronic Dilantin use. 2. No other abnormality.
--- NOTE | 2019-03-31 11:05 | CON ---
DATE OF CONSULTATION: 03/31/2019 CHIEF COMPLAINT: Numbness of the left side. HISTORY OF PRESENT ILLNESS: The patient reports he was in a coma for 3 days due to cocaine related overdose. Since then he has had some long-term as well as short-term memory loss and seizures. He suffered a mini-stroke in the past. He developed left-sided numbness for the last 3 months. He still feels his left side is numb. No weakness is described. He also has lower back problems, which is separate from this event. PREVIOUS MEDICAL HISTORY: Positive for hypertension and seizures and myocardial infarction. PAST SURGICAL HISTORY: Tonsillectomy, anal fissure repair, and chip in the ear for hearing loss. SOCIAL HISTORY: He lives with his family. He has a caregiver. He does not smoke. He does use cocaine occasionally, but not recently. No alcohol use either. He is on disability for his health issues. 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 FAMILY HISTORY: He has 2 children, 22 and 18, they are both healthy. Father is diabetic. Main members on the paternal side of the family does have diabetes. His brother is also diabetic. Mother in her 60s from cancer. REVIEW OF SYSTEMS: PULMONARY: Negative for shortness of breath. GI: Negative for nausea, vomiting, or diarrhea. CARDIAC: Negative for chest pain or palpitation. NEUROLOGICAL: Positive for back pain and left-sided weakness. DERMATOLOGIC: Negative for any skin lesions. OPHTHALMOLOGIC: Normal. ENT: Hearing problems. CURRENT LAB WORKUP: White count 9.5, hemoglobin 13.5, hematocrit 41.9, and platelet count 275. Chemistry; sodium 138, potassium 3.8, chloride 110, bicarb 22, BUN 10, creatinine 1.11, and glucose 128. Liver functions are normal except for elevated alkaline phosphatase, which is 146. Cholesterol panel is normal. His brain CT scan did not show any acute abnormality. MRI of the brain is currently pending. PHYSICAL EXAMINATION: VITAL SIGNS: Temperature 97.7, pulse 70, respiratory rate 17, and blood pressure 154/82. GENERAL APPEARANCE: Well-built, well-nourished man, who is comfortable in bed. CHEST: Clear vesicular breathing. CARDIOVASCULAR: S1 and S2 heard. No murmurs. ABDOMEN: Soft. NEUROLOGIC: Higher intellectual functions. Normal orientation to time, place, and person. Appropriate conversation. Cranial nerves 2 to 12. Normal pupillary reaction at 2 mm bilaterally. No facial asymmetry noted. Tongue midline. Sensation of face is diminished on the left side. Normal hearing bilaterally to finger rub. Normal elevation of palate. Motor; bulk normal. Tone normal. Strength 5/5 throughout in upper and lower extremities. Muscle groups tested are deltoid, biceps, triceps, wrist extension and flexion, finger extension and flexion. Cerebellar; normal [id number], [id number]. Sensory decreased in the left upper and lower extremity as well. Deep tendon reflexes were absent. IMPRESSION: The patient is a 44-year-old man with hypertension, history of cocaine use, and prior cerebrovascular accident and myocardial infarction. He has developed left-sided numbness for the last 3 months. He reports he has not been using cocaine recently. His current examination is positive for left-sided numbness in the face, arm, and leg distribution. I wonder whether he has had a small lacunar infarct. He is also somewhat obese, which raises his risk factors for stroke. RECOMMENDATION: Aspirin for stroke prophylaxis along with statin, if MRI brain is positive for acute infarct. Please complete his workup including echocardiogram and carotid ultrasound. He will need education about diet and nutrition and reduction of weight to reduce risk factors mainly his hypertension and risk for diabetes. Follow up with him again. Job ID: [id number]
[2019-03-31] MEDS: Enoxaparin Sodium 40 MG/0.4 ML SYRINGE SC SCH (11:22)
[2019-03-31] MEDS: hydrALAZINE 25 MG TAB PO SCH ×3 (11:23→21:26)
[2019-03-31] MEDS: Gabapentin 300 MG CAP PO SCH ×2 (11:23→21:26)
[2019-03-31] MEDS: levETIRAcetam 500 MG TAB PO SCH ×2 (11:24→21:27)
[2019-03-31] MEDS: clonazePAM 1 MG TAB PO SCH (11:24)
[2019-03-31] MEDS: Topiramate 100 MG TAB PO SCH (11:24)
[2019-03-31] MEDS: FLUoxetine HCl 20 MG CAP PO SCH (11:24)
[2019-03-31] MEDS: Polyethylene Glycol 3350 17 GM Packet PO SCH (11:25)
--- NOTE | 2019-03-31 14:31 | ULT ---
BILATERAL CAROTID DUPLEX ULTRASOUND INCLUDING COLOR AND SPECTRAL DOPPLER IMAGING: HISTORY: CVA FINDINGS: PSV RIGHT ICA: 70 cm per second EDV: 20 cm per second ICA/CCA RATIO: 0.5 PSV LEFT ICA: 94 cm per second EDV: 38 cm per second ICA/CCA RATIO: 0.7 Minimal increased velocity in the left ECA. Vertebral flow is antegrade. IMPRESSION: No hemodynamically significant stenosis. POS: AVTAR
[2019-03-31 14:44] LABS: Amphetamine Not Detected (NotDetected); Barbiturates Screen Not Detected (NotDetected); Benzodiazepine Screen Not Detected (NotDetected); Cocaine Metabolite Screen Not Detected (NotDetected); Medtox Control Line Valid? VALID (VALID); Medtox Reader # READER 4; Methadone Not Detected (NotDetected); Methamphetamine Not Detected (NotDetected); Opiate Screen Not Detected (NotDetected); Oxycodone Screen Not Detected (NotDetected); Phencyclidine (PCP) Not Detected (NotDetected); THC/Cannabinoid Screen Not Detected (NotDetected); Tricyclic Screen Not Detected (NotDetected)
[2019-03-31] MEDS ORDERED: Atorvastatin Calcium 40 MG TAB PO SCH (21:00)
[2019-04-01 08:04] VITALS: BP 126/64; TEMP 97.6
[2019-04-01] MEDS: clonazePAM 1 MG TAB PO SCH (09:27)
[2019-04-01] MEDS: FLUoxetine HCl 20 MG CAP PO SCH (09:28)
[2019-04-01] MEDS: hydrALAZINE 25 MG TAB PO SCH (09:28)
[2019-04-01] MEDS: levETIRAcetam 500 MG TAB PO SCH (09:28)
[2019-04-01] MEDS: Topiramate 100 MG TAB PO SCH (09:28)
[2019-04-01] MEDS: Enoxaparin Sodium 40 MG/0.4 ML SYRINGE SC SCH (09:28)
[2019-04-01] MEDS: Gabapentin 300 MG CAP PO SCH (09:28)
[2019-04-01] MEDS: Polyethylene Glycol 3350 17 GM Packet PO SCH (09:29)
--- NOTE | 2019-04-01 11:31 | DIS ---
DATE OF ADMISSION: 03/30/2019 DATE OF DISCHARGE: 04/01/2019 FINAL DIAGNOSES: At the time of discharge; 1. Left-sided numbness/paresthesias. 2. Possible diabetes mellitus. 3. Hypertension. 4. Seizure disorder. 5. History of myocardial infarction. 6. Asthma. 7. History of congestive heart failure. 8. History of myocardial infarction x2. 9. History of kidney failure. 10. Short-term memory loss post CPR in 2001 due to cocaine overdose. HOSPITAL COURSE: The patient is a 44-year-old male, who was admitted to the hospital with left-sided face and left arm tingling. Apparently, this was going on for quite some time on and off since last year. ED thought that this needs to be evaluated for possible stroke and the patient got admitted to the hospital. At the time of admission, his white count was within normal limits. Hemoglobin was 13.5, hematocrit 41.9, and platelet count was 275. Chemistry was within normal limits except for chloride, which is 110 and glucose 128 and alkaline phosphatase 146. Troponin I was less than 0.010. At the time of admission, he had thoracic spine CT done, which did not show an acute fracture or subluxation, it showed just scattered degenerative and osteoarthritic changes. Also, he underwent lumbar spine CAT scan, which showed scattered degenerative and arthritic changes again and disk osteophyte complex at L4-L5. Also, he underwent brain CT, which did not show any acute abnormalities. He was seen by neurologist, Dr. Marc, who recommended to complete a full workup for possible stroke, so he underwent brain MRI, which showed cerebral atrophy. His carotid Doppler did not show any abnormalities and echocardiogram showed normal LVEF estimated at 55% to 60%, and normal in rest of the exam. He is doing well. We found that his glycemia is elevated and he will have to follow up with the primary doctor in the next week and address this issue and get more information and testing done to get the diagnosis most likely diabetes at this point. I asked him to stay on diabetic diet and try to control his portions. His activities at the time of discharge are as tolerated. He is seen and examined before his discharge. His vitals are within normal limits and he is discharged on aspirin 81 mg once a day, hydralazine 25 mg 3 times a day, Keppra 500 mg twice a day, tizanidine 4 mg q.8 hours p.r.n. as needed, fluoxetine 20 mg daily, Neurontin 300 mg twice a day, clonazepam 1 mg daily, atorvastatin 80 mg at bedtime, topiramate 100 mg daily, omeprazole 40 mg daily, and Flexeril 10 mg q.8 hours p.r.n. as needed and he is going to follow up with Dr. Rosas to get more testing done on this numbness, most likely he will require additional MRI to find out may be he has radiculopathy causing his numbness. Job ID: [id number]
--- NOTE | 2019-04-01 14:43 | HP ---
CHIEF COMPLAINT: Numbness and some weakness in the left side of the body involving the left upper and lower extremity, blurred vision. HISTORY OF PRESENT ILLNESS: The patient is a 44-year-old male, who presented to the emergency room with 2-day history of blurred vision, this was associated with some numbness in his upper extremity and some decreased strength in the upper and lower extremity, sweating, some nausea, he vomited once. He denied any shortness of breath. He denied any abdominal pain. He denied any diarrhea. Apparently, the numbness and weakness comes and goes since December last year. Apparently, at the end of the last year, he had a mini-stroke. He has established with Dr. Rosas for his seizure disorder. His primary care physician is Dr. Ashley from [facility]. Surrogate decision maker is his caregiver. The patient is admitted to the hospital to rule out acute CVA. He received aspirin and Toradol in the emergency room. PAST MEDICAL HISTORY: Positive for: 1. Seizures. 2. Short-term memory loss post CPR due to cocaine overdose. 3. TIA. 4. Hypertension. 5. Asthma. 6. CHF. 7. History of MIs x2. 8. History of kidney failure. He was on transient hemodialysis. PAST SURGICAL HISTORY: 1. Right ear surgery. 2. Tonsillectomy. 3. Rectal surgery. 4. Vocal cord surgery. 5. Sinus surgery. PSYCHIATRIC HISTORY: Positive for anxiety and depression. SOCIAL HISTORY: He used to smoke and drink. He quit drinking last year. He does not use any illicit drugs. ALLERGIES: DILANTIN AND VENOM WASP. CURRENT MEDICATIONS: 1. Gabapentin 300 mg twice a day. 2. Clonazepam 1 mg once a day. 3. Keppra 500 mg twice a day. 4. Topiramate 100 mg twice a day. 5. Tizanidine 4 mg q.8h p.r.n. as needed. 6. Hydralazine 25 mg 3 times a day. 7. Fluoxetine 20 mg once a day. FAMILY HISTORY: Mother of lung cancer at the age of 62, father still alive, he has diabetes and hypertension. REVIEW OF SYSTEMS: Positive for lower back pain and constipation. Otherwise negative, all 14 systems were reviewed. PHYSICAL EXAMINATION: VITAL SIGNS: Blood pressure is 154/82, pulse is 70, respirations 17, temperature is 97.7, O2 saturation is 95% on room air. HEENT: His head is atraumatic and normocephalic. He is obese. His weight is 302. Eyes are PERRLA. Sclerae are nonicteric. He has blurred vision. Oral mucosa is slightly dry. NECK: Supple, obese. LUNGS: Clear. HEART: S1, S2 normal. No S3. No S4. No murmur. ABDOMEN: Soft, obese, nontender. Bowel sounds are present. No organomegaly. EXTREMITIES: No clubbing, cyanosis, or edema. NEUROLOGIC: He is alert and oriented x4. There is not any significant motor deficit, maybe minimally decreased strength in the left upper extremity. There is slightly decreased sensation in the left upper and left lower extremity. He follows my commands. LABORATORY DATA: Labs showed white count of 9.5, hemoglobin of 13.5, hematocrit 41.9, platelet count 275,000. Sodium of 138, potassium 3.8, chloride 110, BUN 10, creatinine 1.1, glucose 128, alkaline phosphatase 146. The rest of chemistry is within normal limits. Electrocardiogram personally reviewed by me showed normal sinus rhythm with partial right bundle-branch block. Brain CT personally reviewed by me showed no acute intracranial abnormality. Lumbar CT showed no acute fracture or subluxation, showed also partial sacralization of L5 and scattered degenerative and osteoarthritic changes. Thoracic spine CT personally reviewed by me showed no acute fracture or subluxation, showed also scattered degenerative and osteoarthritic changes. IMPRESSION: 1. Left-sided weakness with paresthesias in left upper and lower extremities according to the patient. The patient is admitted to rule out acute cerebrovascular accident. 2. History of asthma. 3. History of cerebrovascular accident. 4. History of myocardial infarction x2. 5. History of congestive heart failure. 6. Hypertension. 7. History of seizures. 8. Morbid obesity. PLAN: Admission for observation. Condition is fair. Activity is bedrest and bathroom privileges. IV Hep-Lock. Aspirin 325 mg once a day, carotid Doppler, echo, and MRI of the brain. We will continue his home medications. We will do DVT prophylaxis with SCDs and Lovenox subcutaneously and will have Neurology consult. Job ID: [id number]
== END 2019-04-01 11:03 | disposition home or self-care (01) ==
LOC: ERS 19:58 → 2SE 22:22
PROVIDERS: ADMIT Internal Medicine; ATTEND Internal Medicine
DX: R20.2 Paresthesia of skin (principal); H53.8 Other visual disturbances; I11.0 Hypertensive heart disease with heart failure; I50.9 Heart failure, unspecified; G40.909 Epilepsy, unspecified, not intractable, without status epilepticus; I25.2 Old myocardial infarction; J45.909 Unspecified asthma, uncomplicated; E66.01 Morbid (severe) obesity due to excess calories; Z68.45 Body mass index [BMI] 70 or greater, adult; Z79.899 Other long term (current) drug therapy; Z86.73 Personal history of transient ischemic attack (TIA), and cerebral infarction without residual deficits; Z87.891 Personal history of nicotine dependence; Z88.8 Allergy status to other drugs, medicaments and biological substances; Z91.038 Other insect allergy status
CPT/HCPCS: 70450; 70551; 72128; 72131; 80053; 80061; 80306; 82962; 84484; 85025; 93005; 93306; 93880; 96372; 96374; 96375; 97116; 97139; 99285; G0378 ×3; 36415; 36416; J1650; J1885; J2270

== ENCOUNTER 2019-05-15 14:14 | Emergency (ER) | payer MEDICARE, OTHER ==
--- NOTE | 2019-05-15 14:49 | RAD ---
Chest one view HISTORY: Headache. Chest pain. COMPARISON: 12/29/2018. FINDINGS: Cardiac silhouette is magnified by projection. Pulmonary vasculature is unremarkable. Media stinum is midline. No lobar consolidation or evidence of pneumothorax. human service technician leads overlie the chest. IMPRESSION : Normal exam.
== END 2019-05-15 15:30 | disposition home or self-care (01) ==
LOC: ERS 14:14
DX: S39.012A Strain of muscle, fascia and tendon of lower back, initial encounter (principal); J06.9 Acute upper respiratory infection, unspecified; Z86.73 Personal history of transient ischemic attack (TIA), and cerebral infarction without residual deficits; I11.0 Hypertensive heart disease with heart failure; I50.9 Heart failure, unspecified; I25.2 Old myocardial infarction; J45.909 Unspecified asthma, uncomplicated; F41.9 Anxiety disorder, unspecified; F32.9 Major depressive disorder, single episode, unspecified; Z87.891 Personal history of nicotine dependence; Z79.899 Other long term (current) drug therapy; X58.XXXA Exposure to other specified factors, initial encounter
CPT/HCPCS: 71045; 87804

== ENCOUNTER 2020-03-27 17:29 | Emergency (ER) | payer MEDICARE, MEDICAID ==
[2020-03-27 18:41] LABS: #Basophils 0.1 thou/uL (0.0-0.2); #Eosinphils 0.2 thou/uL (0.0-0.7); #Lymphocytes 2.6 thou/uL (1.20-3.40); #Monocytes 0.9 thou/uL (0.11-0.59); #Neutrophils 6.1 thou/uL (1.40-6.50); %Lymphocytes 26.3 % (21.0-51.0); %Monocytes 8.9 % (0.0-10.0); %Neutrophils 61.7 % (42.0-75.0); Hemoglobin 14.1 g/dL (14.0-18.0); Mean Corpuscular HGB CONC 33.1 g/dL (32.0-36.0); Mean Corpuscular Hemoglobin 27.7 pg (27.0-31.0); Mean Corpuscular Volume 83.7 fL (78.0-98.0); Mean Platelet Volume 8.1 fL (7.4-10.4); Platelet Count 316 thou/uL (130-400); Red Blood Cell (RBC) Count 5.09 mill/uL (4.70-6.10); White Blood Cell (WBC) Count 9.9 thou/uL (4.8-10.8)
[2020-03-27 18:54] LABS: ALT (SGPT) 49 U/L (8-55); AST (SGOT) 48 U/L (5-34); Albumin 4.3 g/dL (3.5-5.0); Alkaline Phosphatase 158 U/L (40-110); Anion Gap 16 mmol/L (10-20); BUN (Urea Nitrogen) 13 mg/dL (8.9-20.6); Bilirubin, Total 0.5 mg/dL (0.2-1.2); Calc. Creatinine Clearance 0 mL/min (70-130); Calcium 8.8 mg/dL (7.8-10.44); Carbon Dioxide 24 mmol/L (22-29); Chloride 102 mmol/L (98-107); Globulin 3.7 g/dL (2.4-3.5); Glucose 155 mg/dL (70-105); Potassium 3.7 mmol/L (3.5-5.1); Sodium 138 mmol/L (136-145)
--- NOTE | 2020-03-27 19:05 | RAD ---
RADIOGRAPH CHEST 1 VIEW: 01/25/21 HISTORY: 45-year-old male status post syncope. Concern for aspiration. FINDINGS: There are no air space densities, pulmonary edema, pneumothorax, or cardiomegaly. The lateral costop hrenic angles are sharp. IMPRESSION: No acute cardiopulmonary findings. jn [] POS: JIN
--- NOTE | 2020-03-27 19:19 | CT ---
CT HEAD WITHOUT CONTRAST: 03/27/20 INDICATIONS: Syncope. Fall with injury to head. Comparison made to head CT of 03/30/19. FINDINGS: Ventricles have normal size and position. No evidence of intracranial hemorrhage. No mass, edema or i nfarct seen. Paranasal sinuses and mastoids are clear. No evidence of skull fracture. IMPRESSION: No acute findings. POS: AGW
--- NOTE | 2020-03-27 19:32 | CT ---
CT CERVICAL SPINE NONCONTRAST: 03/27/20 HISTORY: 45-year-old male status post acute cervical trauma from fall. FINDINGS: There are no jumped or perched facets. There is no evidence of acute fracture. The vertebral body h eights are maintained. There is no prevertebral soft tissue swelling. There is multilevel central sp inal canal stenosis and neural foraminal stenosis at mid and lower levels due to developmentally shor t pedicles. There is diffuse narrowing of the oropharyngeal airway due to circumferential thickening of mucosa of oropharynx, a new finding since the prior CT of 12/19/18. IMPRESSION: No evidence of acute fracture or acute traumatic subluxation. jn [] POS: JIN
== END 2020-03-27 21:04 | disposition home or self-care (01) ==
LOC: ERS 17:29
DX: S06.9X9A Unspecified intracranial injury with loss of consciousness of unspecified duration, initial encounter (principal); R55 Syncope and collapse; I11.0 Hypertensive heart disease with heart failure; J45.909 Unspecified asthma, uncomplicated; I50.9 Heart failure, unspecified; I25.2 Old myocardial infarction; Z86.73 Personal history of transient ischemic attack (TIA), and cerebral infarction without residual deficits; Z87.891 Personal history of nicotine dependence; X50.0XXA Overexertion from strenuous movement or load, initial encounter; Z79.899 Other long term (current) drug therapy; Z79.51 Long term (current) use of inhaled steroids
CPT/HCPCS: 70450; 71045; 72125; 80053; 84484; 85025; 93005

== ENCOUNTER 2020-05-08 09:03 | Outpatient (CLI) | payer MEDICARE, MEDICAID | END 2020-05-08 09:04 | disposition home or self-care (01) | LOC: BICRAD 09:03 | PROVIDERS: ATTEND Internal Medicine Pulmonary Disease | DX: R06.00 Dyspnea, unspecified (principal); R91.8 Other nonspecific abnormal finding of lung field | CPT/HCPCS: 71046 ==

== ENCOUNTER 2020-06-16 18:34 | Emergency (ER) | payer MEDICARE, MEDICAID ==
[2020-06-16] MEDS ORDERED: Boostrix 0.5 ML (Tdap) VIAL ONE (21:16)
[2020-06-16] MEDS ORDERED: Lidocaine 1% (PF) 30 ML VIAL ONE (21:29)
[2020-06-16] MEDS ORDERED: Bacitracin 1 PK ONE (22:59)
== END 2020-06-16 23:15 | disposition home or self-care (01) ==
LOC: ERS 18:34
DX: S61.012A Laceration without foreign body of left thumb without damage to nail, initial encounter (principal); I25.10 Atherosclerotic heart disease of native coronary artery without angina pectoris; I11.0 Hypertensive heart disease with heart failure; I50.9 Heart failure, unspecified; I25.2 Old myocardial infarction; Z23 Encounter for immunization; Z86.73 Personal history of transient ischemic attack (TIA), and cerebral infarction without residual deficits; Z87.891 Personal history of nicotine dependence; Z79.899 Other long term (current) drug therapy; Z79.84 Long term (current) use of oral hypoglycemic drugs; W26.8XXA Contact with other sharp object(s), not elsewhere classified, initial encounter
CPT/HCPCS: 12002; 90471; 90715; J2001

== ENCOUNTER 2020-07-08 10:21 | Outpatient (CLI) | payer MEDICARE, MEDICAID ==
[~2020-07-08 10:21] MED LIST: Iopamidol-370 76% 500 ML 1 ML ONE
== END 2020-07-08 10:22 | disposition home or self-care (01) ==
LOC: BICCT 10:21
PROVIDERS: ATTEND Internal Medicine Pulmonary Disease
DX: R91.8 Other nonspecific abnormal finding of lung field (principal); G47.33 Obstructive sleep apnea (adult) (pediatric); R59.0 Localized enlarged lymph nodes
CPT/HCPCS: 71260; Q9967

== ENCOUNTER 2020-07-17 16:14 | Outpatient (CLI) | payer MEDICARE, MEDICAID ==
[2020-07-17 17:54] LABS: Mean Corpuscular HGB CONC 31.5 g/dL (32.0-36.0); Mean Corpuscular Hemoglobin 25.6 pg (27.0-33.0); Mean Corpuscular Volume 81.5 fl (81.2-95.1); Mean Platelet Volume 9.8 fl (7.4-10.4); Platelet Count 285 10x3/uL (150-450); RBC Distribution Width 14.6 % (11.5-14.5); Red Blood Cell (RBC) Count 5.46 10x6/uL (4.32-5.72); White Blood Cell (WBC) Count 8.9 10x3/uL (3.5-10.5)
[2020-07-17 18:01] LABS: Anion Gap 13 mmol/L (10-20); BUN (Urea Nitrogen) 9 mg/dL (8.9-20.6); Calc. Creatinine Clearance 0 mL/min (70-130); Calcium 8.9 mg/dL (7.8-10.44); Carbon Dioxide 24 mmol/L (22-29); Chloride 105 mmol/L (98-107); Glucose 217 mg/dL (70-105); Potassium 4.4 mmol/L (3.5-5.1); Sodium 138 mmol/L (136-145)
[2020-07-18 01:36] LABS: SARS-CoV-2 PCR by NAA Not Detected (NotDetected)
== END 2020-07-17 16:15 | disposition home or self-care (01) ==
LOC: LABBT 16:14
PROVIDERS: ATTEND Thoracic Surgery (Cardiothoracic Vascular Surgery)
DX: Z01.818 Encounter for other preprocedural examination (principal); I88.9 Nonspecific lymphadenitis, unspecified; Z20.822 Contact with and (suspected) exposure to COVID-19
CPT/HCPCS: 80048; 85027; U0003; U0005; 87635; 93005; 93010

== ENCOUNTER 2020-07-18 11:06 | Day surgery (SDC) | payer MEDICARE, MEDICAID ==
[2020-07-18] MEDS ORDERED: Fentanyl 250 MCG/5 ML VIAL ONE (11:26)
[2020-07-18] MEDS ORDERED: Fentanyl 100 MCG/2 ML VIAL ONE ×2 (13:25→13:26)
[2020-07-18] MEDS ORDERED: Ketamine 50 MG/ML (10ML VIAL) ONE (13:26)
[2020-07-18] MEDS ORDERED: Dexamethasone 20 MG/5 ML VIAL ONE (13:30)
[2020-07-18] MEDS ORDERED: Lidocaine 1% PF 5 ML VIAL ONE (13:30)
[2020-07-18] MEDS ORDERED: Albuterol Sulfate HFA (OR ONLY) ONE (13:30)
[2020-07-18] MEDS ORDERED: Rocuronium Bromide 10 MG/ML (10ML VIAL) ONE (13:30)
[2020-07-18] MEDS ORDERED: Ondansetron PF 4 MG/2 ML Vial ONE (13:30)
[2020-07-18] MEDS ORDERED: PROPOFOL 200 MG/20 ML VIAL ONE (13:30)
[2020-07-18] MEDS ORDERED: Glycopyrrolate 0.2 MG/ML 5 ML SYRINGE ONE (13:30)
[2020-07-18] MEDS ORDERED: Bupivacaine PF 0.5% 30 ML VIAL ONE (14:02)
[2020-07-18] MEDS ORDERED: HYDROcodone/Acetaminophen 5/325 mg Tablet ONE (16:45)
[2020-07-23 10:16] LABS: Fungus Stain Final report (.)
== END 2020-07-18 17:20 | disposition home or self-care (01) ==
LOC: SDC 11:06
PROVIDERS: ATTEND Thoracic Surgery (Cardiothoracic Vascular Surgery)
PROC: 07B74ZX Excision of Thorax Lymphatic, Percutaneous Endoscopic Approach, Diagnostic (ICD-10-PCS; principal; 2020-07-18)
DX: I88.8 Other nonspecific lymphadenitis (principal); J45.909 Unspecified asthma, uncomplicated; I10 Essential (primary) hypertension; G47.30 Sleep apnea, unspecified; G40.909 Epilepsy, unspecified, not intractable, without status epilepticus; E66.01 Morbid (severe) obesity due to excess calories; Z68.42 Body mass index [BMI] 45.0-49.9, adult; Z86.73 Personal history of transient ischemic attack (TIA), and cerebral infarction without residual deficits; Z87.891 Personal history of nicotine dependence; Z88.8 Allergy status to other drugs, medicaments and biological substances; Z91.038 Other insect allergy status; Z79.84 Long term (current) use of oral hypoglycemic drugs; Z79.899 Other long term (current) drug therapy
CPT/HCPCS: 87070; 87102; 87205; 87206; 88184; 88307; 88312; J0690; J1100; J2405; J2704; J3010; S0020

== ENCOUNTER 2021-09-25 10:54 | Emergency (ER) | payer OTHER, MEDICAID ==
[2021-09-25] MEDS ORDERED: Meclizine HCl 25 MG TAB ONE (11:41)
[2021-09-25 12:09] LABS: #Eosinphils 0.1 thou/uL (0.0-0.7); #Lymphocytes 2.1 thou/uL (1.20-3.40); #Monocytes 0.6 thou/uL (0.11-0.59); #Neutrophils 4.3 thou/uL (1.40-6.50); %Basophils 0.7 % (0.0-1.0); %Eosinophils 1.6 % (0.0-10.0); %Lymphocytes 29.4 % (21.0-51.0); %Monocytes 8.1 % (0.0-10.0); %Neutrophils 60.2 % (42.0-75.0); Hemoglobin 12.8 g/dL (14.0-18.0); Mean Corpuscular HGB CONC 31.7 g/dL (32.0-36.0); Mean Corpuscular Volume 88.4 fL (78.0-98.0); Platelet Count 209 thou/uL (130-400); Red Blood Cell (RBC) Count 4.59 mill/uL (4.70-6.10); White Blood Cell (WBC) Count 7.1 thou/uL (4.8-10.8)
[2021-09-25 12:21] LABS: ALT (SGPT) 53 U/L (8-55); AST (SGOT) 63 U/L (5-34); Albumin 3.6 g/dL (3.5-5.0); Alkaline Phosphatase 98 U/L (40-110); Anion Gap 12 mmol/L (10-20); BUN (Urea Nitrogen) 5 mg/dL (8.9-20.6); Bilirubin, Total 0.7 mg/dL (0.2-1.2); CK (CPK) 225 U/L (30-200); Calc. Creatinine Clearance 0 mL/min (70-130); Calcium 8.6 mg/dL (7.8-10.44); Carbon Dioxide 26 mmol/L (22-29); Chloride 105 mmol/L (98-107); Estimated GFR 110; Globulin 2.4 g/dL (2.4-3.5); Glucose 124 mg/dL (70-105); Potassium 3.6 mmol/L (3.5-5.1); Sodium 139 mmol/L (136-145)
== END 2021-09-25 12:58 | disposition home or self-care (01) ==
LOC: ERS 10:54 → MERGE 10:54 → ERS 12:58
DX: E86.0 Dehydration (principal); I25.2 Old myocardial infarction; I11.0 Hypertensive heart disease with heart failure; I50.9 Heart failure, unspecified; R73.03 Prediabetes; G40.909 Epilepsy, unspecified, not intractable, without status epilepticus; F17.220 Nicotine dependence, chewing tobacco, uncomplicated; Z79.84 Long term (current) use of oral hypoglycemic drugs; Z79.899 Other long term (current) drug therapy
CPT/HCPCS: 36415; 80053; 82550; 84484; 85025; 93005; 96360

== ENCOUNTER 2021-10-14 11:17 | Emergency (ER) | payer OTHER, MEDICAID ==
[2021-10-14] MEDS ORDERED: Ketorolac Tromethamine 30 MG/ML VIAL ONE (11:55)
[2021-10-14 12:20] LABS: #Basophils 0.1 thou/uL (0.0-0.2); #Eosinphils 0.1 thou/uL (0.0-0.7); #Lymphocytes 2.6 thou/uL (1.20-3.40); #Monocytes 0.6 thou/uL (0.11-0.59); #Neutrophils 3.4 thou/uL (1.40-6.50); %Lymphocytes 38.3 % (21.0-51.0); %Monocytes 9.3 % (0.0-10.0); %Neutrophils 50.4 % (42.0-75.0); Hemoglobin 12.2 g/dL (14.0-18.0); Mean Corpuscular HGB CONC 31.9 g/dL (32.0-36.0); Mean Corpuscular Hemoglobin 27.8 pg (27.0-31.0); Mean Platelet Volume 7.6 fL (7.4-10.4); Platelet Count 263 thou/uL (130-400); RBC Distribution Width 13.9 % (11.5-14.5); Red Blood Cell (RBC) Count 4.41 mill/uL (4.70-6.10); White Blood Cell (WBC) Count 6.7 thou/uL (4.8-10.8)
[2021-10-14 12:38] LABS: ALT (SGPT) 30 U/L (8-55); AST (SGOT) 40 U/L (5-34); Albumin 3.7 g/dL (3.5-5.0); Alkaline Phosphatase 86 U/L (40-110); Anion Gap 15 mmol/L (10-20); BUN (Urea Nitrogen) 8 mg/dL (8.9-20.6); Bilirubin, Total 0.6 mg/dL (0.2-1.2); CK (CPK) 371 U/L (30-200); Calc. Creatinine Clearance 0 mL/min (70-130); Calcium 8.7 mg/dL (7.8-10.44); Carbon Dioxide 24 mmol/L (22-29); Chloride 106 mmol/L (98-107); Estimated GFR 109; Globulin 2.4 g/dL (2.4-3.5); Glucose 94 mg/dL (70-105); Potassium 3.8 mmol/L (3.5-5.1); Protein, Total 6.1 g/dL (6.0-8.3); Sodium 141 mmol/L (136-145)
== END 2021-10-14 14:32 | disposition home or self-care (01) ==
LOC: ERS 11:17
DX: E86.0 Dehydration (principal); M25.462 Effusion, left knee; I11.0 Hypertensive heart disease with heart failure; I50.9 Heart failure, unspecified; I25.2 Old myocardial infarction; Z87.891 Personal history of nicotine dependence; Z79.899 Other long term (current) drug therapy
CPT/HCPCS: 80053; 82550; 85025; 94760; 96361; 96374; J1885

== ENCOUNTER 2022-01-04 12:55 | Emergency (ER) | payer OTHER, MEDICAID | END 2022-01-04 17:15 | disposition home or self-care (01) | LOC: ERS 12:55 | DX: S09.90XA Unspecified injury of head, initial encounter (principal); S83.92XA Sprain of unspecified site of left knee, initial encounter; S43.402A Unspecified sprain of left shoulder joint, initial encounter; I11.0 Hypertensive heart disease with heart failure; I50.9 Heart failure, unspecified; E78.00 Pure hypercholesterolemia, unspecified; F17.210 Nicotine dependence, cigarettes, uncomplicated; R73.03 Prediabetes; Z79.84 Long term (current) use of oral hypoglycemic drugs | CPT/HCPCS: 70450; 72125 ==

== ENCOUNTER 2022-03-01 16:17 | Emergency (ER) | payer OTHER ==
[2022-03-01] MEDS ORDERED: HYDROcodone/Acetaminophen 5/325 mg Tablet ONE (17:46)
== END 2022-03-01 18:30 | disposition home or self-care (01) ==
LOC: ERS 16:17
DX: S93.401A Sprain of unspecified ligament of right ankle, initial encounter (principal); S50.312A Abrasion of left elbow, initial encounter; I11.0 Hypertensive heart disease with heart failure; I50.9 Heart failure, unspecified; W18.30XA Fall on same level, unspecified, initial encounter; Y92.008 Other place in unspecified non-institutional (private) residence as the place of occurrence of the external cause; Z87.891 Personal history of nicotine dependence

== ENCOUNTER 2022-04-19 13:42 | Emergency (ER) | payer OTHER ==
[2022-04-19] MEDS ORDERED: Ondansetron PF 4 MG/2 ML Vial ONE (15:55)
[2022-04-19 16:28] LABS: #Basophils 0.1 thou/uL (0.0-0.2); #Eosinphils 0.1 thou/uL (0.0-0.7); #Lymphocytes 2.8 thou/uL (1.20-3.40); #Monocytes 0.8 thou/uL (0.11-0.59); %Basophils 0.6 % (0.0-1.0); %Eosinophils 1.1 % (0.0-10.0); %Lymphocytes 28.4 % (21.0-51.0); %Monocytes 8.3 % (0.0-10.0); %Neutrophils 61.5 % (42.0-75.0); Hemoglobin 12.3 g/dL (14.0-18.0); Mean Corpuscular HGB CONC 31.8 g/dL (32.0-36.0); Mean Corpuscular Hemoglobin 26.7 pg (27.0-31.0); Mean Corpuscular Volume 83.9 fl (78.0-98.0); Mean Platelet Volume 8.2 fL (7.4-10.4); Platelet Count 246 10x3/uL (130-400); RBC Distribution Width 14.7 % (11.5-14.5); White Blood Cell (WBC) Count 9.8 10x3/uL (4.8-10.8)
[2022-04-19 16:48] LABS: ALT (SGPT) 60 U/L (8-55); AST (SGOT) 61 U/L (5-34); Albumin 4.1 g/dL (3.5-5.0); Alkaline Phosphatase 97 U/L (40-110); Anion Gap 11 mmol/L (10-20); BUN (Urea Nitrogen) 8 mg/dL (8.9-20.6); Bilirubin, Total 0.3 mg/dL (0.2-1.2); Calc. Creatinine Clearance 0 mL/min (70-130); Calcium 9.3 mg/dL (7.8-10.44); Carbon Dioxide 27 mmol/L (22-29); Chloride 107 mmol/L (98-107); Estimated GFR 99; Globulin 2.6 g/dL (2.4-3.5); Glucose 96 mg/dL (70-105); Lipase 26 U/L (8-78); Potassium 4.7 mmol/L (3.5-5.1); Protein, Total 6.7 g/dL (6.0-8.3); Sodium 140 mmol/L (136-145)
[2022-04-19 18:17] LABS: Bilirubin Negative (Negative); Blood, Urine Negative (Negative); Clarity Clear (Clear); Glucose, Urine (Dipstick) Normal (Negative); Ketone, Urine Negative (Negative); Leukocyte Negative Leu/uL (Negative); Nitrite Negative (Negative); Protein, Urine (Dipstick) 20 mg/dL (Neg-Trace); Specific Gravity, Urine 1.029 (1.002-1.036); Urobilinogen Normal mg/dL (Less than 2); pH, Urine 5.5 (5.0-9.0)
[2022-04-19 18:45] LABS: SARS-CoV-2 NAA Rapid Test Not Detected (NotDetected)
== END 2022-04-19 18:53 | disposition home or self-care (01) ==
LOC: ERS 13:42
DX: R11.2 Nausea with vomiting, unspecified (principal); R19.7 Diarrhea, unspecified; R79.89 Other specified abnormal findings of blood chemistry; I11.0 Hypertensive heart disease with heart failure; I50.9 Heart failure, unspecified; E78.00 Pure hypercholesterolemia, unspecified; Z20.822 Contact with and (suspected) exposure to COVID-19; Z87.891 Personal history of nicotine dependence; Z79.899 Other long term (current) drug therapy; Z79.84 Long term (current) use of oral hypoglycemic drugs
CPT/HCPCS: 0240U; 80053; 81003; 83690; 85025; 93005; 96361; 96374; J2405

== ENCOUNTER 2022-04-24 11:42 | Inpatient (IN) | payer OTHER, MEDICAID ==
[2022-04-24 12:01] LABS: #Eosinphils 0.1 thou/uL (0.0-0.7); #Lymphocytes 1.9 thou/uL (1.20-3.40); #Monocytes 0.7 thou/uL (0.11-0.59); #Neutrophils 5.2 thou/uL (1.40-6.50); %Basophils 0.6 % (0.0-1.0); %Eosinophils 1.5 % (0.0-10.0); %Lymphocytes 23.8 % (21.0-51.0); %Monocytes 8.5 % (0.0-10.0); %Neutrophils 65.6 % (42.0-75.0); Mean Corpuscular HGB CONC 31.9 g/dL (32.0-36.0); Mean Corpuscular Hemoglobin 26.7 pg (27.0-31.0); Mean Corpuscular Volume 83.7 fl (78.0-98.0); Platelet Count 216 10x3/uL (130-400); RBC Distribution Width 14.7 % (11.5-14.5); Red Blood Cell (RBC) Count 4.48 mill/uL (4.70-6.10); White Blood Cell (WBC) Count 7.9 10x3/uL (4.8-10.8)
[2022-04-24 12:15] LABS: Acetaminophen Less than 10.0 mcg/mL (10.0-30.0); Alcohol Less than 10 mg/dL (Less than 10); Salicylate Less than 8.0 mg/dL (15.0-30.0)
[2022-04-24 12:16] LABS: ALT (SGPT) 44 U/L (8-55); AST (SGOT) 40 U/L (5-34); Albumin 3.8 g/dL (3.5-5.0); Alkaline Phosphatase 97 U/L (40-110); Anion Gap 14 mmol/L (10-20); BUN (Urea Nitrogen) 6 mg/dL (8.9-20.6); Bilirubin, Total 0.5 mg/dL (0.2-1.2); CK (CPK) 245 U/L (30-200); Calc. Creatinine Clearance 0 mL/min (70-130); Calcium 8.9 mg/dL (7.8-10.44); Carbon Dioxide 22 mmol/L (22-29); Chloride 108 mmol/L (98-107); Estimated GFR 103; Globulin 2.5 g/dL (2.4-3.5); Glucose 111 mg/dL (70-105); Magnesium 1.9 mg/dL (1.6-2.6); Potassium 4.2 mmol/L (3.5-5.1); Protein, Total 6.3 g/dL (6.0-8.3); Sodium 140 mmol/L (136-145)
[2022-04-24 12:24] LABS: PTT 26.2 sec (22.9-36.1); Prothrombin Time 13.1 sec (12.0-14.7)
[2022-04-24] MEDS ORDERED: Iopamidol-370 76% 500 ML 1 ML ONE (12:50)
[2022-04-24 13:22] LABS: Bilirubin Negative (Negative); Blood, Urine Negative (Negative); Clarity Clear (Clear); Glucose, Urine (Dipstick) Normal (Negative); Ketone, Urine Negative (Negative); Leukocyte Negative Leu/uL (Negative); Nitrite Negative (Negative); Protein, Urine (Dipstick) Negative (Neg-Trace); Urobilinogen Normal mg/dL (Less than 2)
[2022-04-24 13:24] LABS: Specific Gravity, Urine 1.044 (1.002-1.036)
[2022-04-24 13:27] LABS: Amphetamine Not Detected (NotDetected); Barbiturates Screen Not Detected (NotDetected); Benzodiazepine Screen Not Detected (NotDetected); Cocaine Metabolite Screen Detected (NotDetected); Methadone Not Detected (NotDetected); Methamphetamine Not Detected (NotDetected); Opiate Screen Not Detected (NotDetected); Oxycodone Screen Not Detected (NotDetected); Phencyclidine (PCP) Not Detected (NotDetected); THC/Cannabinoid Screen Not Detected (NotDetected); Tricyclic Screen Not Detected (NotDetected)
[2022-04-24] MEDS ORDERED: Ondansetron ODT 4 MG TAB PO PRN (14:44)
[2022-04-24] MEDS ORDERED: Ondansetron PF 4 MG/2 ML Vial IVP PRN (14:44)
[2022-04-24] MEDS ORDERED: Calcium Carbonate 500 MG ChewTAB PO PRN (14:44)
[2022-04-24] MEDS ORDERED: Dextrose 50% Abboject 50 ML SYRINGE SLOW IVP PRN (14:51)
[2022-04-24] MEDS ORDERED: Dextrose 5% in Water 1,000 ML IV PRN (14:51)
[2022-04-24] MEDS ORDERED: HumaLOG 300 UNITS/3 ML VIAL SC PRN (14:51)
[2022-04-24] MEDS ORDERED: Aspirin Chewable 81 MG TAB ONE (15:44)
[2022-04-24] MEDS: hydrALAZINE 25 MG TAB PO SCH ×2 (17:19→20:54)
[2022-04-24 17:21] LABS: Glucose 106 mg/dL (70-105)
[2022-04-24 20:08] VITALS: BMI 46.5
[2022-04-24] MEDS: Sodium Chloride 0.9% 1,000 ML IV SCH (20:52)
[2022-04-24] MEDS: Gabapentin 300 MG CAP PO SCH (20:53)
[2022-04-24] MEDS: levETIRAcetam 500 MG TAB PO SCH (20:54)
[2022-04-25] MEDS: Sodium Chloride 0.9% 1,000 ML IV SCH ×2 (01:00→15:36)
[2022-04-25] MEDS: HYDROcodone/Acetaminophen 5/325 mg Tablet PO PRN (03:05)
[2022-04-25 08:27] LABS: #Eosinphils 0.1 thou/uL (0.0-0.7); #Lymphocytes 1.8 thou/uL (1.20-3.40); #Monocytes 0.5 thou/uL (0.11-0.59); %Basophils 0.8 % (0.0-1.0); %Eosinophils 2.1 % (0.0-10.0); %Lymphocytes 32.7 % (21.0-51.0); %Monocytes 8.7 % (0.0-10.0); %Neutrophils 55.7 % (42.0-75.0); Hemoglobin 11.2 g/dL (14.0-18.0); Mean Corpuscular HGB CONC 32.2 g/dL (32.0-36.0); Mean Corpuscular Hemoglobin 26.9 pg (27.0-31.0); Mean Corpuscular Volume 83.5 fl (78.0-98.0); Mean Platelet Volume 8.1 fL (7.4-10.4); Platelet Count 182 10x3/uL (130-400); RBC Distribution Width 14.6 % (11.5-14.5); Red Blood Cell (RBC) Count 4.17 mill/uL (4.70-6.10); White Blood Cell (WBC) Count 5.4 10x3/uL (4.8-10.8)
[2022-04-25 08:47] LABS: Prothrombin Time 13.8 sec (12.0-14.7)
[2022-04-25 08:50] LABS: ALT (SGPT) 37 U/L (8-55); AST (SGOT) 34 U/L (5-34); Albumin 3.6 g/dL (3.5-5.0); Alkaline Phosphatase 95 U/L (40-110); Anion Gap 12 mmol/L (10-20); BUN (Urea Nitrogen) 7 mg/dL (8.9-20.6); Bilirubin, Total 0.6 mg/dL (0.2-1.2); Calc. Creatinine Clearance 226 mL/min (70-130); Calcium 8.4 mg/dL (7.8-10.44); Carbon Dioxide 24 mmol/L (22-29); Chloride 104 mmol/L (98-107); Estimated GFR 111; Globulin 2.4 g/dL (2.4-3.5); Glucose 92 mg/dL (70-105); Sodium 136 mmol/L (136-145)
[2022-04-25] MEDS: Alogliptin 6.25 MG TAB PO SCH (09:56)
[2022-04-25] MEDS: Atorvastatin Calcium 40 MG TAB PO SCH (09:56)
[2022-04-25] MEDS: hydrALAZINE 25 MG TAB PO SCH ×3 (09:57→20:02)
[2022-04-25] MEDS: levETIRAcetam 500 MG TAB PO SCH ×2 (09:58→20:03)
[2022-04-25] MEDS: FLUoxetine HCl 20 MG CAP PO SCH (09:59)
[2022-04-25] MEDS: Gabapentin 300 MG CAP PO SCH ×2 (09:59→20:03)
[2022-04-25] MEDS: Warfarin Sodium 5 MG TAB PO SCH (18:12)
[2022-04-26 05:50] LABS: #Eosinphils 0.1 thou/uL (0.0-0.7); #Lymphocytes 1.6 thou/uL (1.20-3.40); #Monocytes 0.5 thou/uL (0.11-0.59); %Basophils 0.8 % (0.0-1.0); %Eosinophils 1.9 % (0.0-10.0); %Lymphocytes 30.2 % (21.0-51.0); %Monocytes 9.1 % (0.0-10.0); Hemoglobin 10.8 g/dL (14.0-18.0); Mean Corpuscular HGB CONC 31.8 g/dL (32.0-36.0); Mean Corpuscular Hemoglobin 26.6 pg (27.0-31.0); Mean Corpuscular Volume 83.6 fl (78.0-98.0); Mean Platelet Volume 7.9 fL (7.4-10.4); Platelet Count 204 10x3/uL (130-400); RBC Distribution Width 14.6 % (11.5-14.5); Red Blood Cell (RBC) Count 4.07 mill/uL (4.70-6.10); White Blood Cell (WBC) Count 5.2 10x3/uL (4.8-10.8)
[2022-04-26 06:01] LABS: Prothrombin Time 13.5 sec (12.0-14.7)
[2022-04-26 06:12] LABS: Anion Gap 12 mmol/L (10-20); BUN (Urea Nitrogen) 7 mg/dL (8.9-20.6); Calc. Creatinine Clearance 232 mL/min (70-130); Calcium 8.6 mg/dL (7.8-10.44); Carbon Dioxide 25 mmol/L (22-29); Chloride 106 mmol/L (98-107); Estimated GFR 111; Glucose 102 mg/dL (70-105); Potassium 3.8 mmol/L (3.5-5.1); Sodium 139 mmol/L (136-145)
[2022-04-26] MEDS: HYDROcodone/Acetaminophen 5/325 mg Tablet PO PRN (10:06)
[2022-04-26] MEDS: Atorvastatin Calcium 40 MG TAB PO SCH (10:08)
[2022-04-26] MEDS: Alogliptin 6.25 MG TAB PO SCH (10:08)
[2022-04-26] MEDS: levETIRAcetam 500 MG TAB PO SCH ×2 (10:09→20:30)
[2022-04-26] MEDS: Losartan 25 MG TAB PO SCH (10:09)
[2022-04-26] MEDS: Gabapentin 300 MG CAP PO SCH ×2 (10:09→20:30)
[2022-04-26] MEDS: FLUoxetine HCl 20 MG CAP PO SCH (10:09)
[2022-04-26] MEDS: hydrALAZINE 25 MG TAB PO SCH ×3 (10:09→20:30)
[2022-04-26] MEDS: Warfarin Sodium 5 MG TAB PO SCH (18:02)
[2022-04-27 05:35] LABS: #Basophils 0.1 thou/uL (0.0-0.2); #Eosinphils 0.1 thou/uL (0.0-0.7); #Lymphocytes 2.3 thou/uL (1.20-3.40); #Monocytes 0.7 thou/uL (0.11-0.59); %Basophils 0.9 % (0.0-1.0); %Eosinophils 1.8 % (0.0-10.0); %Lymphocytes 27.7 % (21.0-51.0); %Monocytes 8.9 % (0.0-10.0); %Neutrophils 60.7 % (42.0-75.0); Mean Corpuscular HGB CONC 32.2 g/dL (32.0-36.0); Mean Platelet Volume 8.2 fL (7.4-10.4); Platelet Count 218 10x3/uL (130-400); RBC Distribution Width 14.7 % (11.5-14.5); Red Blood Cell (RBC) Count 4.45 mill/uL (4.70-6.10); White Blood Cell (WBC) Count 8.2 10x3/uL (4.8-10.8)
[2022-04-27 05:36] LABS: Prothrombin Time 13.2 sec (12.0-14.7)
[2022-04-27 05:55] LABS: Anion Gap 10 mmol/L (10-20); BUN (Urea Nitrogen) 6 mg/dL (8.9-20.6); Calc. Creatinine Clearance 208 mL/min (70-130); Calcium 9.1 mg/dL (7.8-10.44); Carbon Dioxide 28 mmol/L (22-29); Chloride 105 mmol/L (98-107); Estimated GFR 108; Glucose 113 mg/dL (70-105); Potassium 4.1 mmol/L (3.5-5.1); Sodium 139 mmol/L (136-145)
[2022-04-27] MEDS: FLUoxetine HCl 20 MG CAP PO SCH (08:25)
[2022-04-27] MEDS: Alogliptin 6.25 MG TAB PO SCH (08:25)
[2022-04-27] MEDS: levETIRAcetam 500 MG TAB PO SCH ×2 (08:25→20:48)
[2022-04-27] MEDS: Losartan 25 MG TAB PO SCH (08:26)
[2022-04-27] MEDS: Atorvastatin Calcium 40 MG TAB PO SCH (08:26)
[2022-04-27] MEDS: Gabapentin 300 MG CAP PO SCH ×2 (08:26→20:41)
[2022-04-27] MEDS: hydrALAZINE 25 MG TAB PO SCH ×3 (08:26→20:42)
[2022-04-27] MEDS: HYDROcodone/Acetaminophen 5/325 mg Tablet PO PRN (15:26)
[2022-04-27] MEDS: Warfarin Sodium 5 MG TAB PO SCH (16:33)
[2022-04-28 05:27] LABS: INR-International Normal Ratio 1.1; Prothrombin Time 14.3 sec (12.0-14.7)
[2022-04-28 05:28] LABS: #Basophils 0.1 thou/uL (0.0-0.2); #Eosinphils 0.1 thou/uL (0.0-0.7); #Monocytes 0.6 thou/uL (0.11-0.59); #Neutrophils 4.1 thou/uL (1.40-6.50); %Basophils 0.9 % (0.0-1.0); %Eosinophils 1.5 % (0.0-10.0); %Lymphocytes 29.2 % (21.0-51.0); %Monocytes 8.4 % (0.0-10.0); Hemoglobin 11.3 g/dL (14.0-18.0); Mean Corpuscular HGB CONC 31.6 g/dL (32.0-36.0); Mean Corpuscular Hemoglobin 26.5 pg (27.0-31.0); Mean Platelet Volume 8.2 fL (7.4-10.4); Platelet Count 219 10x3/uL (130-400); RBC Distribution Width 14.8 % (11.5-14.5); Red Blood Cell (RBC) Count 4.27 mill/uL (4.70-6.10); White Blood Cell (WBC) Count 6.9 10x3/uL (4.8-10.8)
[2022-04-28 05:42] LABS: Anion Gap 10 mmol/L (10-20); BUN (Urea Nitrogen) 6 mg/dL (8.9-20.6); Calc. Creatinine Clearance 224 mL/min (70-130); Calcium 8.6 mg/dL (7.8-10.44); Carbon Dioxide 26 mmol/L (22-29); Chloride 106 mmol/L (98-107); Estimated GFR 110; Glucose 108 mg/dL (70-105); Potassium 3.8 mmol/L (3.5-5.1); Sodium 138 mmol/L (136-145)
[2022-04-28 07:43] LABS: Glucose 112 mg/dL (70-105)
[2022-04-28] MEDS: Atorvastatin Calcium 40 MG TAB PO SCH (09:26)
[2022-04-28] MEDS: Alogliptin 6.25 MG TAB PO SCH (09:26)
[2022-04-28] MEDS: Amlodipine 5 MG TAB PO SCH (09:26)
[2022-04-28] MEDS: Losartan 25 MG TAB PO SCH (09:27)
[2022-04-28] MEDS: FLUoxetine HCl 20 MG CAP PO SCH (09:27)
[2022-04-28] MEDS: hydrALAZINE 25 MG TAB PO SCH ×3 (09:27→21:00)
[2022-04-28] MEDS: levETIRAcetam 500 MG TAB PO SCH ×2 (09:27→20:59)
[2022-04-28] MEDS: Warfarin Sodium 5 MG TAB PO SCH (09:29)
[2022-04-28] MEDS: Gabapentin 300 MG CAP PO SCH ×2 (09:30→20:59)
[2022-04-28] MEDS: HYDROcodone/Acetaminophen 5/325 mg Tablet PO PRN ×2 (09:33→20:58)
[2022-04-28 11:56] LABS: Glucose 99 mg/dL (70-105)
[2022-04-29 05:16] LABS: #Basophils 0.1 thou/uL (0.0-0.2); #Eosinphils 0.2 thou/uL (0.0-0.7); #Lymphocytes 2.4 thou/uL (1.20-3.40); #Monocytes 0.8 thou/uL (0.11-0.59); #Neutrophils 3.9 thou/uL (1.40-6.50); %Basophils 1.2 % (0.0-1.0); %Eosinophils 2.7 % (0.0-10.0); %Lymphocytes 32.5 % (21.0-51.0); %Monocytes 10.3 % (0.0-10.0); %Neutrophils 53.3 % (42.0-75.0); Hemoglobin 11.5 g/dL (14.0-18.0); Mean Corpuscular HGB CONC 32.4 g/dL (32.0-36.0); Mean Corpuscular Hemoglobin 27.2 pg (27.0-31.0); Mean Platelet Volume 8.3 fL (7.4-10.4); Platelet Count 228 10x3/uL (130-400); RBC Distribution Width 14.8 % (11.5-14.5); Red Blood Cell (RBC) Count 4.24 mill/uL (4.70-6.10); White Blood Cell (WBC) Count 7.4 10x3/uL (4.8-10.8)
[2022-04-29 05:22] LABS: INR-International Normal Ratio 1.3; Prothrombin Time 16.7 sec (12.0-14.7)
[2022-04-29 05:29] LABS: Anion Gap 11 mmol/L (10-20); BUN (Urea Nitrogen) 10 mg/dL (8.9-20.6); Calc. Creatinine Clearance 193 mL/min (70-130); Calcium 8.9 mg/dL (7.8-10.44); Carbon Dioxide 26 mmol/L (22-29); Chloride 105 mmol/L (98-107); Estimated GFR 101; Glucose 95 mg/dL (70-105); Sodium 138 mmol/L (136-145)
[2022-04-29 06:40] LABS: DRVVT Confirm 35.6
[2022-04-29] MEDS: Alogliptin 6.25 MG TAB PO SCH (08:29)
[2022-04-29] MEDS: Atorvastatin Calcium 40 MG TAB PO SCH (08:30)
[2022-04-29] MEDS: hydrALAZINE 25 MG TAB PO SCH ×3 (08:30→20:47)
[2022-04-29] MEDS: FLUoxetine HCl 20 MG CAP PO SCH (08:31)
[2022-04-29] MEDS: Gabapentin 300 MG CAP PO SCH ×2 (08:31→20:49)
[2022-04-29] MEDS: levETIRAcetam 500 MG TAB PO SCH ×2 (08:32→20:49)
[2022-04-29] MEDS: Losartan 25 MG TAB PO SCH (08:32)
[2022-04-29] MEDS: Amlodipine 5 MG TAB PO SCH (08:32)
[2022-04-29] MEDS: HYDROcodone/Acetaminophen 5/325 mg Tablet PO PRN (10:18)
[2022-04-29] MEDS: Warfarin Sodium 5 MG TAB PO SCH (18:13)
[2022-04-30 05:30] LABS: #Basophils 0.1 thou/uL (0.0-0.2); #Eosinphils 0.2 thou/uL (0.0-0.7); #Lymphocytes 2.1 thou/uL (1.20-3.40); #Monocytes 0.7 thou/uL (0.11-0.59); #Neutrophils 4.1 thou/uL (1.40-6.50); %Basophils 0.8 % (0.0-1.0); %Eosinophils 2.4 % (0.0-10.0); %Lymphocytes 28.7 % (21.0-51.0); %Monocytes 10.2 % (0.0-10.0); %Neutrophils 57.9 % (42.0-75.0); Hemoglobin 12.2 g/dL (14.0-18.0); Mean Corpuscular HGB CONC 32.1 g/dL (32.0-36.0); Mean Corpuscular Hemoglobin 27.1 pg (27.0-31.0); Mean Corpuscular Volume 84.4 fl (78.0-98.0); Mean Platelet Volume 8.5 fL (7.4-10.4); Platelet Count 234 10x3/uL (130-400); RBC Distribution Width 14.6 % (11.5-14.5); Red Blood Cell (RBC) Count 4.49 mill/uL (4.70-6.10); White Blood Cell (WBC) Count 7.2 10x3/uL (4.8-10.8)
[2022-04-30 05:36] LABS: INR-International Normal Ratio 1.2; Prothrombin Time 16.1 sec (12.0-14.7)
[2022-04-30 05:49] LABS: Anion Gap 11 mmol/L (10-20); BUN (Urea Nitrogen) 12 mg/dL (8.9-20.6); Calc. Creatinine Clearance 218 mL/min (70-130); Calcium 8.7 mg/dL (7.8-10.44); Carbon Dioxide 25 mmol/L (22-29); Chloride 104 mmol/L (98-107); Estimated GFR 109; Glucose 117 mg/dL (70-105); Potassium 4.1 mmol/L (3.5-5.1); Sodium 136 mmol/L (136-145)
[2022-04-30] MEDS: Alogliptin 6.25 MG TAB PO SCH (09:15)
[2022-04-30] MEDS: Amlodipine 5 MG TAB PO SCH (09:15)
[2022-04-30] MEDS: hydrALAZINE 25 MG TAB PO SCH ×3 (09:16→20:45)
[2022-04-30] MEDS: levETIRAcetam 500 MG TAB PO SCH ×2 (09:16→20:45)
[2022-04-30] MEDS: Atorvastatin Calcium 40 MG TAB PO SCH (09:16)
[2022-04-30] MEDS: Gabapentin 300 MG CAP PO SCH ×2 (09:17→20:45)
[2022-04-30] MEDS: FLUoxetine HCl 20 MG CAP PO SCH (09:17)
[2022-04-30] MEDS: Losartan 25 MG TAB PO SCH (09:17)
[2022-04-30] MEDS: HumaLOG 300 UNITS/3 ML VIAL SC PRN ×2 (13:01→17:40)
[2022-04-30] MEDS: HYDROcodone/Acetaminophen 5/325 mg Tablet PO PRN (15:18)
[2022-04-30] MEDS ORDERED: Warfarin Sodium 2.5 MG TAB PO SCH (17:00)
[2022-04-30] MEDS: Apixaban 5 MG TAB PO SCH (20:46)
[2022-05-01 06:10] LABS: INR-International Normal Ratio 1.5; Prothrombin Time 18.8 sec (12.0-14.7)
[2022-05-01 08:12] VITALS: BP 123/67; TEMP 97.9
[2022-05-01] MEDS: Apixaban 5 MG TAB PO SCH (09:18)
[2022-05-01] MEDS: Amlodipine 5 MG TAB PO SCH (09:18)
[2022-05-01] MEDS: Alogliptin 6.25 MG TAB PO SCH (09:18)
[2022-05-01] MEDS: FLUoxetine HCl 20 MG CAP PO SCH (09:19)
[2022-05-01] MEDS: Gabapentin 300 MG CAP PO SCH (09:19)
[2022-05-01] MEDS: Atorvastatin Calcium 40 MG TAB PO SCH (09:19)
[2022-05-01] MEDS: Losartan 25 MG TAB PO SCH (09:20)
[2022-05-01] MEDS: levETIRAcetam 500 MG TAB PO SCH (09:20)
[2022-05-01] MEDS: hydrALAZINE 25 MG TAB PO SCH (09:20)
[2022-05-01] MEDS: HumaLOG 300 UNITS/3 ML VIAL SC PRN (11:17)
== END 2022-05-01 12:17 | disposition home or self-care (01) | DRG 92 ==
LOC: ERS 11:42 → SUATTDRO 11:42 → ERHOLD 14:20 → NEURO 17:29
PROVIDERS: ADMIT Hospitalist; ATTEND Internal Medicine
DX: G08 Intracranial and intraspinal phlebitis and thrombophlebitis (principal); Z68.42 Body mass index [BMI] 45.0-49.9, adult; Z20.822 Contact with and (suspected) exposure to COVID-19; F39 Unspecified mood [affective] disorder; G40.909 Epilepsy, unspecified, not intractable, without status epilepticus; I10 Essential (primary) hypertension; E11.9 Type 2 diabetes mellitus without complications; E78.5 Hyperlipidemia, unspecified; R29.810 Facial weakness; R20.2 Paresthesia of skin; E66.9 Obesity, unspecified; F32.A Depression, unspecified; Z87.820 Personal history of traumatic brain injury; Z88.8 Allergy status to other drugs, medicaments and biological substances; Z91.09 Other allergy status, other than to drugs and biological substances; Z79.899 Other long term (current) drug therapy; Z79.84 Long term (current) use of oral hypoglycemic drugs
CPT/HCPCS: 36415; 36416; 70450; 70496; 70498; 70551; 80053; 80306; 80307; 81003; 81241; 82550; 82947; 83090; 83735; 84443; 85025; 85300; 85303; 85305; 85610; 85613; 85652; 85730; 93005; 96372; J1650; J1815; J7050; Q9967; U0003; U0005

== ENCOUNTER 2022-05-04 16:21 | Emergency (ER) | payer MEDICAID, OTHER ==
[2022-05-04] MEDS ORDERED: Morphine 4 MG/ML VIAL ONE ×2 (17:17→19:20)
[2022-05-04] MEDS ORDERED: Ondansetron PF 4 MG/2 ML Vial ONE (17:17)
[2022-05-04 17:30] LABS: #Basophils 0.1 thou/uL (0.0-0.2); #Eosinphils 0.2 thou/uL (0.0-0.7); #Lymphocytes 2.6 thou/uL (1.20-3.40); #Neutrophils 5.3 thou/uL (1.40-6.50); %Basophils 0.9 % (0.0-1.0); %Eosinophils 1.7 % (0.0-10.0); %Lymphocytes 28.4 % (21.0-51.0); %Monocytes 10.6 % (0.0-10.0); %Neutrophils 58.4 % (42.0-75.0); Hemoglobin 11.6 g/dL (14.0-18.0); Mean Corpuscular HGB CONC 31.8 g/dL (32.0-36.0); Mean Corpuscular Hemoglobin 26.4 pg (27.0-31.0); Mean Corpuscular Volume 82.8 fl (78.0-98.0); Mean Platelet Volume 8.5 fL (7.4-10.4); Platelet Count 237 10x3/uL (130-400); RBC Distribution Width 14.9 % (11.5-14.5); Red Blood Cell (RBC) Count 4.39 mill/uL (4.70-6.10)
[2022-05-04 17:50] LABS: ALT (SGPT) 40 U/L (8-55); AST (SGOT) 40 U/L (5-34); Alkaline Phosphatase 108 U/L (40-110); Anion Gap 12 mmol/L (10-20); BUN (Urea Nitrogen) 15 mg/dL (8.9-20.6); Bilirubin, Total 0.4 mg/dL (0.2-1.2); Calc. Creatinine Clearance 0 mL/min (70-130); Calcium 8.6 mg/dL (7.8-10.44); Carbon Dioxide 24 mmol/L (22-29); Chloride 105 mmol/L (98-107); Estimated GFR 95; Globulin 2.5 g/dL (2.4-3.5); Glucose 83 mg/dL (70-105); Lipase 22 U/L (8-78); Magnesium 1.7 mg/dL (1.6-2.6); Potassium 4.1 mmol/L (3.5-5.1); Protein, Total 6.5 g/dL (6.0-8.3); Sodium 137 mmol/L (136-145)
[2022-05-04] MEDS ORDERED: Ketorolac Tromethamine 30 MG/ML VIAL ONE (19:20)
== END 2022-05-04 22:25 | disposition home or self-care (01) ==
LOC: ERS 16:21
DX: R51.9 Headache, unspecified (principal); I82.90 Acute embolism and thrombosis of unspecified vein; I11.0 Hypertensive heart disease with heart failure; I50.9 Heart failure, unspecified; E78.00 Pure hypercholesterolemia, unspecified; K21.9 Gastro-esophageal reflux disease without esophagitis; F17.220 Nicotine dependence, chewing tobacco, uncomplicated; Z79.899 Other long term (current) drug therapy; Z79.84 Long term (current) use of oral hypoglycemic drugs
CPT/HCPCS: 36415; 70450; 70496; 80053; 83690; 83735; 84484; 85025; 93005; 96374; 96375; J1885; J2270; J2405; Q9967

== ENCOUNTER 2022-05-06 08:02 | Emergency (ER) | payer OTHER, MEDICAID ==
[2022-05-06 08:34] LABS: #Basophils 0.1 thou/uL (0.0-0.2); #Eosinphils 0.2 thou/uL (0.0-0.7); #Lymphocytes 2.5 thou/uL (1.20-3.40); #Monocytes 0.5 thou/uL (0.11-0.59); #Neutrophils 3.2 thou/uL (1.40-6.50); %Basophils 1.5 % (0.0-1.0); %Eosinophils 2.7 % (0.0-10.0); %Lymphocytes 38.6 % (21.0-51.0); %Monocytes 7.6 % (0.0-10.0); %Neutrophils 49.6 % (42.0-75.0); Hemoglobin 12.3 g/dL (14.0-18.0); Mean Corpuscular HGB CONC 31.8 g/dL (32.0-36.0); Mean Corpuscular Hemoglobin 26.5 pg (27.0-31.0); Mean Corpuscular Volume 83.4 fl (78.0-98.0); Mean Platelet Volume 7.9 fL (7.4-10.4); Platelet Count 292 10x3/uL (130-400); RBC Distribution Width 14.8 % (11.5-14.5); Red Blood Cell (RBC) Count 4.63 mill/uL (4.70-6.10); White Blood Cell (WBC) Count 6.4 10x3/uL (4.8-10.8)
[2022-05-06 08:55] LABS: ALT (SGPT) 36 U/L (8-55); AST (SGOT) 36 U/L (5-34); Albumin 3.9 g/dL (3.5-5.0); Alkaline Phosphatase 109 U/L (40-110); Anion Gap 13 mmol/L (10-20); BUN (Urea Nitrogen) 7 mg/dL (8.9-20.6); Bilirubin, Total 0.3 mg/dL (0.2-1.2); Calc. Creatinine Clearance 0 mL/min (70-130); Calcium 8.4 mg/dL (7.8-10.44); Carbon Dioxide 24 mmol/L (22-29); Chloride 108 mmol/L (98-107); Estimated GFR 109; Globulin 2.6 g/dL (2.4-3.5); Glucose 126 mg/dL (70-105); Potassium 4.3 mmol/L (3.5-5.1); Protein, Total 6.5 g/dL (6.0-8.3); Sodium 141 mmol/L (136-145)
[2022-05-06] MEDS ORDERED: Metoclopramide HCl 10 MG/2 ML VIAL ONE (09:29)
[2022-05-06] MEDS ORDERED: diphenhydrAMINE 50 MG CAP ONE (09:29)
[2022-05-06] MEDS ORDERED: Ketorolac Tromethamine 30 MG/ML VIAL ONE (09:29)
[2022-05-06] MEDS ORDERED: diphenhydrAMINE 50 MG/ML VIAL ONE (09:30)
[2022-05-06 10:32] LABS: Bilirubin Negative (Negative); Blood, Urine Negative (Negative); Glucose, Urine (Dipstick) Normal (Negative); Ketone, Urine Negative (Negative); Leukocyte Negative Leu/uL (Negative); Nitrite Negative (Negative); Protein, Urine (Dipstick) Negative (Neg-Trace); Specific Gravity, Urine 1.018 (1.002-1.036); Urobilinogen Normal mg/dL (Less than 2); pH, Urine 5.5 (5.0-9.0)
[2022-05-06 10:35] LABS: Clarity Hazy (Clear)
== END 2022-05-06 11:04 | disposition home or self-care (01) ==
LOC: ERS 08:02
DX: R51.9 Headache, unspecified (principal); E78.00 Pure hypercholesterolemia, unspecified; I50.9 Heart failure, unspecified; F17.220 Nicotine dependence, chewing tobacco, uncomplicated; K21.9 Gastro-esophageal reflux disease without esophagitis; Z79.899 Other long term (current) drug therapy; Z79.84 Long term (current) use of oral hypoglycemic drugs
CPT/HCPCS: 36415; 80053; 81003; 83605; 84146; 85025; 93005; 96365; 96375; J1200; J1885; J2765

== ENCOUNTER 2022-06-09 06:58 | Outpatient (CLI) | payer OTHER, MEDICAID | END 2022-06-09 06:59 | disposition home or self-care (01) | LOC: BICCT 06:58 | PROVIDERS: ATTEND Physician Assistant | DX: G08 Intracranial and intraspinal phlebitis and thrombophlebitis (principal) | CPT/HCPCS: 36415; 70496; 85379 ==

== ENCOUNTER 2022-06-10 12:01 | Emergency (ER) | payer OTHER, MEDICAID ==
[2022-06-10] MEDS ORDERED: Acetaminophen 500 MG TAB ONE (12:49)
[2022-06-10] MEDS ORDERED: diphenhydrAMINE 50 MG/ML VIAL ONE (12:49)
[2022-06-10] MEDS ORDERED: Metoclopramide HCl 10 MG/2 ML VIAL ONE (12:49)
[2022-06-10 12:55] LABS: #Eosinphils 0.1 thou/uL (0.0-0.7); #Lymphocytes 1.8 thou/uL (1.20-3.40); #Monocytes 0.5 thou/uL (0.11-0.59); #Neutrophils 3.4 thou/uL (1.40-6.50); %Basophils 0.7 % (0.0-1.0); %Eosinophils 1.4 % (0.0-10.0); %Lymphocytes 30.9 % (21.0-51.0); %Monocytes 8.7 % (0.0-10.0); %Neutrophils 58.3 % (42.0-75.0); Hemoglobin 10.8 g/dL (14.0-18.0); Mean Corpuscular Volume 84.3 fl (78.0-98.0); Platelet Count 199 10x3/uL (130-400); RBC Distribution Width 15.5 % (11.5-14.5); Red Blood Cell (RBC) Count 4.02 mill/uL (4.70-6.10); White Blood Cell (WBC) Count 5.9 10x3/uL (4.8-10.8)
[2022-06-10 13:17] LABS: ALT (SGPT) 33 U/L (8-55); AST (SGOT) 41 U/L (5-34); Albumin 3.8 g/dL (3.5-5.0); Alkaline Phosphatase 87 U/L (40-110); Anion Gap 12 mmol/L (10-20); BUN (Urea Nitrogen) 9 mg/dL (8.9-20.6); Bilirubin, Total 0.3 mg/dL (0.2-1.2); Calc. Creatinine Clearance 0 mL/min (70-130); Calcium 8.4 mg/dL (7.8-10.44); Carbon Dioxide 25 mmol/L (22-29); Chloride 108 mmol/L (98-107); Estimated GFR 108; Globulin 2.1 g/dL (2.4-3.5); Glucose 89 mg/dL (70-105); Potassium 3.8 mmol/L (3.5-5.1); Protein, Total 5.9 g/dL (6.0-8.3); Sodium 141 mmol/L (136-145)
== END 2022-06-10 15:03 | disposition home or self-care (01) ==
LOC: ERS 12:01
DX: R51.9 Headache, unspecified (principal); R42 Dizziness and giddiness; I13.0 Hypertensive heart and chronic kidney disease with heart failure and stage 1 through stage 4 chronic kidney disease, or unspecified chronic kidney disease; I50.9 Heart failure, unspecified; N18.9 Chronic kidney disease, unspecified; E78.00 Pure hypercholesterolemia, unspecified; K21.9 Gastro-esophageal reflux disease without esophagitis; F17.220 Nicotine dependence, chewing tobacco, uncomplicated; Z79.899 Other long term (current) drug therapy; Z79.84 Long term (current) use of oral hypoglycemic drugs; Z79.01 Long term (current) use of anticoagulants
CPT/HCPCS: 70496; 80053; 84484; 85025; 93005; 96361; 96374; 96375; J1200; J2765

== ENCOUNTER 2022-06-22 07:56 | Emergency (ER) | payer OTHER, MEDICAID ==
[2022-06-22] MEDS ORDERED: Iopamidol-370 76% 500 ML MDV (1 ML CHARGE) ONE (08:37)
[2022-06-22 09:05] LABS: #Basophils 0.1 thou/uL (0.0-0.2); #Eosinphils 0.1 thou/uL (0.0-0.7); #Lymphocytes 2.2 thou/uL (1.20-3.40); #Monocytes 0.5 thou/uL (0.11-0.59); %Basophils 0.9 % (0.0-1.0); %Eosinophils 1.7 % (0.0-10.0); %Lymphocytes 38.3 % (21.0-51.0); %Monocytes 8.7 % (0.0-10.0); %Neutrophils 50.5 % (42.0-75.0); Hemoglobin 11.5 g/dL (14.0-18.0); Mean Corpuscular HGB CONC 33.2 g/dL (32.0-36.0); Mean Corpuscular Hemoglobin 28.6 pg (27.0-31.0); Mean Corpuscular Volume 86.1 fl (78.0-98.0); Mean Platelet Volume 7.8 fL (7.4-10.4); Platelet Count 192 10x3/uL (130-400); RBC Distribution Width 17.3 % (11.5-14.5); Red Blood Cell (RBC) Count 4.03 mill/uL (4.70-6.10); White Blood Cell (WBC) Count 5.8 10x3/uL (4.8-10.8)
[2022-06-22 09:27] LABS: ALT (SGPT) 34 U/L (8-55); AST (SGOT) 40 U/L (5-34); Albumin 3.7 g/dL (3.5-5.0); Alkaline Phosphatase 80 U/L (40-110); Anion Gap 13 mmol/L (10-20); BUN (Urea Nitrogen) 5 mg/dL (8.9-20.6); Bilirubin, Total 0.3 mg/dL (0.2-1.2); Calc. Creatinine Clearance 0 mL/min (70-130); Calcium 8.5 mg/dL (7.8-10.44); Carbon Dioxide 23 mmol/L (22-29); Chloride 110 mmol/L (98-107); Estimated GFR 109; Globulin 2.1 g/dL (2.4-3.5); Glucose 81 mg/dL (70-105); Potassium 3.9 mmol/L (3.5-5.1); Protein, Total 5.8 g/dL (6.0-8.3); Sodium 142 mmol/L (136-145)
[2022-06-22] MEDS ORDERED: Meclizine HCl 25 MG TAB ONE (09:54)
[2022-06-22] MEDS ORDERED: Acetaminophen 500 MG TAB ONE (09:55)
[2022-06-22 10:07] LABS: Bilirubin Negative (Negative); Blood, Urine Negative (Negative); Clarity Clear (Clear); Glucose, Urine (Dipstick) Normal (Negative); Ketone, Urine Negative (Negative); Leukocyte Negative Leu/uL (Negative); Nitrite Negative (Negative); Protein, Urine (Dipstick) Negative (Neg-Trace); Specific Gravity, Urine 1.016 (1.002-1.036); Urobilinogen Normal mg/dL (Less than 2); pH, Urine 5.5 (5.0-9.0)
== END 2022-06-22 11:49 | disposition home or self-care (01) ==
LOC: ERS 07:56
DX: G08 Intracranial and intraspinal phlebitis and thrombophlebitis (principal); I11.0 Hypertensive heart disease with heart failure; I50.9 Heart failure, unspecified; E78.00 Pure hypercholesterolemia, unspecified; F17.220 Nicotine dependence, chewing tobacco, uncomplicated; Z79.01 Long term (current) use of anticoagulants; Z79.899 Other long term (current) drug therapy
CPT/HCPCS: 36415; 70496; 80053; 81003; 85025; 93005; Q9967

== ENCOUNTER 2022-08-18 13:49 | Emergency (ER) | payer OTHER, MEDICARE ==
[2022-08-18 15:08] LABS: #Basophils 0.1 thou/uL (0.0-0.2); #Eosinphils 0.1 thou/uL (0.0-0.7); #Monocytes 0.5 thou/uL (0.11-0.59); #Neutrophils 4.5 thou/uL (1.40-6.50); %Basophils 0.8 % (0.0-1.0); %Eosinophils 1.5 % (0.0-10.0); %Lymphocytes 21.6 % (21.0-51.0); %Monocytes 7.4 % (0.0-10.0); %Neutrophils 68.2 % (42.0-75.0); Hemoglobin 12.1 g/dL (14.0-18.0); Mean Corpuscular HGB CONC 31.6 g/dL (32.0-36.0); Mean Corpuscular Hemoglobin 28.7 pg (27.0-31.0); Mean Corpuscular Volume 90.8 fl (78.0-98.0); Mean Platelet Volume 10.2 fL (7.4-10.4); Platelet Count 201 10x3/uL (130-400); RBC Distribution Width 15.3 % (11.5-14.5); Red Blood Cell (RBC) Count 4.22 mill/uL (4.70-6.10); White Blood Cell (WBC) Count 6.5 10x3/uL (4.8-10.8)
[2022-08-18 15:36] LABS: ALT (SGPT) 39 U/L (8-55); AST (SGOT) 40 U/L (5-34); Albumin 3.9 g/dL (3.5-5.0); Alkaline Phosphatase 94 U/L (40-110); Anion Gap 12 mmol/L (10-20); BUN (Urea Nitrogen) 6 mg/dL (8.9-20.6); Bilirubin, Total 0.3 mg/dL (0.2-1.2); Calc. Creatinine Clearance 0 mL/min (70-130); Calcium 8.7 mg/dL (7.8-10.44); Carbon Dioxide 22 mmol/L (22-29); Chloride 110 mmol/L (98-107); Estimated GFR 109; Globulin 2.2 g/dL (2.4-3.5); Glucose 129 mg/dL (70-105); Potassium 4.1 mmol/L (3.5-5.1); Protein, Total 6.1 g/dL (6.0-8.3); Sodium 140 mmol/L (136-145)
[2022-08-18 15:49] LABS: SARS-CoV-2 NAA Rapid Test Not Detected (NotDetected)
[2022-08-18 16:07] LABS: CK (CPK) 168 U/L (30-200)
== END 2022-08-18 16:20 | disposition home or self-care (01) ==
LOC: ERS 13:49
DX: T67.5XXA Heat exhaustion, unspecified, initial encounter (principal); E86.0 Dehydration; I11.0 Hypertensive heart disease with heart failure; I50.9 Heart failure, unspecified; Z79.899 Other long term (current) drug therapy; Z20.822 Contact with and (suspected) exposure to COVID-19
CPT/HCPCS: 0240U; 71045; 80053; 82550; 85025; 96360; 99284; 36415

== ENCOUNTER 2022-09-07 15:09 | Emergency (ER) | payer OTHER ==
[2022-09-07 15:27] LABS: #Basophils 0.1 thou/uL (0.0-0.2); #Eosinphils 0.2 thou/uL (0.0-0.7); #Monocytes 0.9 thou/uL (0.11-0.59); #Neutrophils 6.7 thou/uL (1.40-6.50); %Basophils 0.9 % (0.0-1.0); %Eosinophils 1.9 % (0.0-10.0); %Lymphocytes 19.8 % (21.0-51.0); %Monocytes 8.7 % (0.0-10.0); %Neutrophils 68.2 % (42.0-75.0); Hemoglobin 13.5 g/dL (14.0-18.0); Mean Corpuscular HGB CONC 32.4 g/dL (32.0-36.0); Mean Corpuscular Hemoglobin 29.5 pg (27.0-31.0); Mean Corpuscular Volume 91.2 fl (78.0-98.0); Platelet Count 289 10x3/uL (130-400); Red Blood Cell (RBC) Count 4.57 mill/uL (4.70-6.10); White Blood Cell (WBC) Count 9.8 10x3/uL (4.8-10.8)
[2022-09-07 16:04] LABS: ALT (SGPT) 44 U/L (8-55); AST (SGOT) 55 U/L (5-34); Albumin 4.6 g/dL (3.5-5.0); Alkaline Phosphatase 126 U/L (40-110); Anion Gap 15 mmol/L (10-20); BUN (Urea Nitrogen) 10 mg/dL (8.9-20.6); Bilirubin, Total 0.6 mg/dL (0.2-1.2); Calc. Creatinine Clearance 0 mL/min (70-130); Calcium 9.4 mg/dL (7.8-10.44); Carbon Dioxide 24 mmol/L (22-29); Chloride 106 mmol/L (98-107); Estimated GFR 77; Globulin 2.7 g/dL (2.4-3.5); Glucose 146 mg/dL (70-105); Potassium 4.3 mmol/L (3.5-5.1); Protein, Total 7.3 g/dL (6.0-8.3); Sodium 141 mmol/L (136-145)
[2022-09-07 16:38] LABS: CK (CPK) 807 U/L (30-200); Magnesium 1.8 mg/dL (1.6-2.6)
[2022-09-07] MEDS ORDERED: Lidocaine 1% PF 5 ML VIAL ONE (18:41)
== END 2022-09-07 19:02 | disposition home or self-care (01) ==
LOC: ERS 15:09
DX: E86.0 Dehydration (principal); L03.031 Cellulitis of right toe; I11.0 Hypertensive heart disease with heart failure; I50.9 Heart failure, unspecified; E11.9 Type 2 diabetes mellitus without complications
CPT/HCPCS: 10060; 36415; 70450; 80053; 80177; 82550; 83735; 84484; 85025; 93005; 96360

== ENCOUNTER 2022-10-12 12:22 | Emergency (ER) | payer OTHER | END 2022-10-12 13:10 | disposition home or self-care (01) | LOC: ERS 12:22 | DX: L03.031 Cellulitis of right toe (principal); I11.0 Hypertensive heart disease with heart failure; I50.9 Heart failure, unspecified; I25.2 Old myocardial infarction; E11.9 Type 2 diabetes mellitus without complications; J45.909 Unspecified asthma, uncomplicated; Z79.01 Long term (current) use of anticoagulants; Z79.84 Long term (current) use of oral hypoglycemic drugs; Z79.899 Other long term (current) drug therapy | CPT/HCPCS: 99283 ==

== ENCOUNTER 2022-12-01 06:56 | Outpatient (CLI) | payer OTHER ==
[2022-12-01] MEDS ORDERED: Iopamidol 370 76% 100 ML VIAL ONE (15:49)
== END 2022-12-01 06:57 | disposition home or self-care (01) ==
LOC: CT 06:56
PROVIDERS: ATTEND Internal Medicine
DX: I82.91 Chronic embolism and thrombosis of unspecified vein (principal); D68.69 Other thrombophilia; D53.9 Nutritional anemia, unspecified; Z86.718 Personal history of other venous thrombosis and embolism
CPT/HCPCS: 70496; 70498; Q9967

== ENCOUNTER 2022-12-01 07:49 | Emergency (ER) | payer OTHER, MEDICAID | END 2022-12-01 08:33 | disposition home or self-care (01) | LOC: ERS 07:49 | DX: L60.0 Ingrowing nail (principal); I13.0 Hypertensive heart and chronic kidney disease with heart failure and stage 1 through stage 4 chronic kidney disease, or unspecified chronic kidney disease; E11.22 Type 2 diabetes mellitus with diabetic chronic kidney disease; N18.9 Chronic kidney disease, unspecified; I50.9 Heart failure, unspecified; I25.2 Old myocardial infarction; Z99.2 Dependence on renal dialysis; Z79.01 Long term (current) use of anticoagulants; Z79.84 Long term (current) use of oral hypoglycemic drugs; Z79.899 Other long term (current) drug therapy | CPT/HCPCS: 99283 ==

== ENCOUNTER 2023-01-31 11:06 | Emergency (ER) | payer OTHER ==
[2023-01-31 11:53] LABS: #Basophils 0.1 thou/uL (0.0-0.2); #Eosinphils 0.1 thou/uL (0.0-0.7); #Monocytes 0.5 thou/uL (0.11-0.59); #Neutrophils 4.4 thou/uL (1.40-6.50); %Basophils 1.4 % (0.0-1.0); %Eosinophils 1.7 % (0.0-10.0); %Lymphocytes 19.7 % (21.0-51.0); %Monocytes 7.1 % (0.0-10.0); %Neutrophils 69.6 % (42.0-75.0); Hematocrit 41.8 % (42.0-52.0); Hemoglobin 13.3 g/dL (14.0-18.0); Mean Corpuscular HGB CONC 31.8 g/dL (32.0-36.0); Mean Corpuscular Hemoglobin 30.3 pg (27.0-31.0); Mean Corpuscular Volume 95.2 fl (78.0-98.0); Mean Platelet Volume 9.7 fL (7.4-10.4); Platelet Count 231 10x3/uL (130-400); RBC Distribution Width 13.1 % (11.5-14.5); Red Blood Cell (RBC) Count 4.39 mill/uL (4.70-6.10); White Blood Cell (WBC) Count 6.4 10x3/uL (4.8-10.8)
[2023-01-31 12:18] LABS: ALT (SGPT) 30 U/L (8-55); AST (SGOT) 31 U/L (5-34); Albumin 3.7 g/dL (3.5-5.0); Alkaline Phosphatase 85 U/L (40-110); Anion Gap 14 mmol/L (10-20); BUN (Urea Nitrogen) 5 mg/dL (8.9-20.6); Bilirubin, Total 0.5 mg/dL (0.2-1.2); Calc. Creatinine Clearance 0 mL/min (70-130); Calcium 8.8 mg/dL (7.8-10.44); Carbon Dioxide 28 mmol/L (22-29); Chloride 107 mmol/L (98-107); Estimated GFR 90; Globulin 2.5 g/dL (2.4-3.5); Glucose 100 mg/dL (70-105); Potassium 4.8 mmol/L (3.5-5.1); Protein, Total 6.2 g/dL (6.0-8.3); Sodium 144 mmol/L (136-145)
[2023-01-31 12:28] LABS: Troponin I Less than 0.010 ng/mL (< 0.028)
[2023-01-31] MEDS ORDERED: Ketorolac Tromethamine 30 MG/ML VIAL ONE (12:52)
[2023-01-31 13:10] LABS: Bacteria/HPF None Seen HPF (None Seen); Bilirubin Negative (Negative); Blood, Urine Negative (Negative); CAUTI Indications for Culture Pelvic or flank pain; Clarity Clear (Clear); Glucose, Urine (Dipstick) Normal (Negative); Ketone, Urine Negative (Negative); Leukocyte Negative Leu/uL (Negative); Nitrite Negative (Negative); Protein, Urine (Dipstick) Negative (Neg-Trace); RBC/HPF None Seen HPF (0-3); Specific Gravity, Urine 1.016 (1.002-1.036); Squamous Epithelial 0-3 HPF (0-3); Urobilinogen Normal mg/dL (Less than 2); WBC/HPF 0-3 HPF (0-3); pH, Urine 6.5 (5.0-9.0)
[2023-01-31 13:12] LABS: Urine Culture Reflex No No
[2023-01-31 13:36] LABS: SARS-CoV-2 NAA Rapid Test Not Detected (NotDetected)
== END 2023-01-31 14:00 | disposition left against medical advice (07) ==
LOC: ERS 11:06
DX: Z53.21 Procedure and treatment not carried out due to patient leaving prior to being seen by health care provider (principal)
CPT/HCPCS: 0240U; 71045; 80053; 81001; 84484; 85025; 93005; 36415; J1885

== ENCOUNTER 2023-03-20 02:09 | Emergency (ER) | payer OTHER ==
[2023-03-20] MEDS ORDERED: Proparacaine 0.5% Opth 15 ML BOT ONE (02:37)
[2023-03-20] MEDS ORDERED: Fluorescein Opthalmic Strip ONE (02:37)
[2023-03-20] MEDS ORDERED: Tetracaine 0.5% PF 4 ML BOT EA EYE SCH (03:00)
== END 2023-03-20 03:39 | disposition home or self-care (01) ==
LOC: ERS 02:09
DX: S05.02XA Injury of conjunctiva and corneal abrasion without foreign body, left eye, initial encounter (principal); S05.01XA Injury of conjunctiva and corneal abrasion without foreign body, right eye, initial encounter; I25.2 Old myocardial infarction; J45.909 Unspecified asthma, uncomplicated; I13.0 Hypertensive heart and chronic kidney disease with heart failure and stage 1 through stage 4 chronic kidney disease, or unspecified chronic kidney disease; E11.22 Type 2 diabetes mellitus with diabetic chronic kidney disease; N18.9 Chronic kidney disease, unspecified; I50.9 Heart failure, unspecified; X58.XXXA Exposure to other specified factors, initial encounter; Z79.84 Long term (current) use of oral hypoglycemic drugs; Z87.891 Personal history of nicotine dependence; Z79.899 Other long term (current) drug therapy
CPT/HCPCS: 99283

== ENCOUNTER 2023-09-20 05:08 | Emergency (ER) | payer OTHER, SELFPAY ==
[2023-09-20 06:23] LABS: #Basophils 0.06 10x3/uL (0.0-0.2); #Monocytes 0.57 10x3/uL (0.11-0.59); #Neutrophils 3.34 10x3/uL (1.40-6.50); %Eosinophils 1.7 % (0.0-10.0); %Lymphocytes 30.6 % (21.0-51.0); %Monocytes 9.6 % (0.0-10.0); %Neutrophils 56.4 % (42.0-75.0); Hematocrit 39.2 % (42.0-52.0); Hemoglobin 13.2 g/dL (14.0-18.0); Mean Corpuscular HGB CONC 33.7 g/dL (32.0-36.0); Mean Corpuscular Hemoglobin 33.2 pg (27.0-31.0); Mean Corpuscular Volume 98.7 fL (78.0-98.0); Platelet Count 217 10x3/uL (130-400); RBC Distribution Width 12.9 % (11.5-14.5); Red Blood Cell (RBC) Count 3.97 mill/uL (4.70-6.10); White Blood Cell (WBC) Count 5.92 10x3/uL (4.8-10.8)
[2023-09-20 06:38] LABS: ALT (SGPT) 42 U/L (8-55); AST (SGOT) 45 U/L (5-34); Albumin 3.1 g/dL (3.5-5.0); Alkaline Phosphatase 77 U/L (40-110); Anion Gap 12 mmol/L (10-20); BUN (Urea Nitrogen) 6 mg/dL (8.9-20.6); Bilirubin, Total 0.5 mg/dL (0.2-1.2); Calc. Creatinine Clearance 0 mL/min (70-130); Calcium 8.1 mg/dL (7.8-10.44); Carbon Dioxide 21 mmol/L (22-29); Chloride 110 mmol/L (98-107); Estimated GFR 107; Globulin 2.1 g/dL (2.4-3.5); Glucose 127 mg/dL (70-105); Lipase 29 U/L (8-78); Potassium 3.3 mmol/L (3.5-5.1); Protein, Total 5.2 g/dL (6.0-8.3); Sodium 140 mmol/L (136-145)
[2023-09-20 08:02] LABS: Troponin I Less than 0.010 ng/mL (< 0.028)
[2023-09-20] MEDS ORDERED: Acetaminophen 325 MG TAB ONE (08:48)
== END 2023-09-20 09:29 | disposition home or self-care (01) ==
LOC: ERS 05:08
DX: R07.2 Precordial pain (principal); I13.2 Hypertensive heart and chronic kidney disease with heart failure and with stage 5 chronic kidney disease, or end stage renal disease; I50.9 Heart failure, unspecified; N18.6 End stage renal disease; E11.22 Type 2 diabetes mellitus with diabetic chronic kidney disease; F17.220 Nicotine dependence, chewing tobacco, uncomplicated
CPT/HCPCS: 36415; 71045; 80053; 83690; 83880; 84484; 85025; 93005

== ENCOUNTER 2023-10-08 14:38 | Emergency (ER) | payer OTHER ==
[2023-10-08] MEDS ORDERED: Lidocaine 1% PF 5 ML VIAL ONE (14:48)
[2023-10-08] MEDS ORDERED: Boostrix 0.5 ML (Tdap) VIAL (>/=7 yrs of age) ONE (14:48)
[2023-10-08] MEDS ORDERED: Bacitracin 1 PK ONE (15:27)
== END 2023-10-08 15:36 | disposition home or self-care (01) ==
LOC: ERS 14:38
DX: S81.811A Laceration without foreign body, right lower leg, initial encounter (principal); F17.220 Nicotine dependence, chewing tobacco, uncomplicated; I11.0 Hypertensive heart disease with heart failure; I50.9 Heart failure, unspecified; E11.9 Type 2 diabetes mellitus without complications; X58.XXXA Exposure to other specified factors, initial encounter
CPT/HCPCS: 12002; 90471; 90715

== ENCOUNTER 2023-10-15 13:49 | Emergency (ER) | payer OTHER ==
[2023-10-15] MEDS ORDERED: Amoxicillin/Potassium Clav 875 MG TAB ONE (14:18)
== END 2023-10-15 14:28 | disposition home or self-care (01) ==
LOC: ERS 13:49
DX: L03.115 Cellulitis of right lower limb (principal); T81.33XA Disruption of traumatic injury wound repair, initial encounter; I13.2 Hypertensive heart and chronic kidney disease with heart failure and with stage 5 chronic kidney disease, or end stage renal disease; E11.22 Type 2 diabetes mellitus with diabetic chronic kidney disease; N18.6 End stage renal disease; I50.9 Heart failure, unspecified; I25.2 Old myocardial infarction; F17.220 Nicotine dependence, chewing tobacco, uncomplicated
CPT/HCPCS: 99283

== ENCOUNTER 2023-10-18 14:09 | Emergency (ER) | payer OTHER | END 2023-10-18 14:45 | disposition home or self-care (01) | LOC: ERS 14:09 | DX: L03.115 Cellulitis of right lower limb (principal); S81.811D Laceration without foreign body, right lower leg, subsequent encounter; I25.2 Old myocardial infarction; I13.2 Hypertensive heart and chronic kidney disease with heart failure and with stage 5 chronic kidney disease, or end stage renal disease; E11.22 Type 2 diabetes mellitus with diabetic chronic kidney disease; N18.6 End stage renal disease; I50.9 Heart failure, unspecified; F17.220 Nicotine dependence, chewing tobacco, uncomplicated; J45.909 Unspecified asthma, uncomplicated; X58.XXXD Exposure to other specified factors, subsequent encounter; Z99.2 Dependence on renal dialysis; Z79.84 Long term (current) use of oral hypoglycemic drugs; Z79.899 Other long term (current) drug therapy | CPT/HCPCS: 99282 ==

== ENCOUNTER 2024-02-02 12:02 | Emergency (ER) | payer OTHER ==
[2024-02-02] MEDS ORDERED: traMADol HCl 50 MG TAB ONE (13:29)
== END 2024-02-02 13:45 | disposition home or self-care (01) ==
LOC: ERS 12:02
DX: S90.212A Contusion of left great toe with damage to nail, initial encounter (principal); I13.0 Hypertensive heart and chronic kidney disease with heart failure and stage 1 through stage 4 chronic kidney disease, or unspecified chronic kidney disease; E11.22 Type 2 diabetes mellitus with diabetic chronic kidney disease; N18.9 Chronic kidney disease, unspecified; I50.9 Heart failure, unspecified; I25.2 Old myocardial infarction; J45.909 Unspecified asthma, uncomplicated; Z86.73 Personal history of transient ischemic attack (TIA), and cerebral infarction without residual deficits; Z79.01 Long term (current) use of anticoagulants; Z79.51 Long term (current) use of inhaled steroids; Z79.899 Other long term (current) drug therapy; W20.8XXA Other cause of strike by thrown, projected or falling object, initial encounter
CPT/HCPCS: 99283

== ENCOUNTER 2024-03-16 19:38 | Observation (INO) | payer OTHER, SELFPAY ==
[2024-03-16 20:05] LABS: #Basophils 0.07 10x3/uL (0.0-0.2); %Basophils 0.9 % (0.0-1.0); %Eosinophils 1.9 % (0.0-10.0); %Lymphocytes 28.5 % (21.0-51.0); %Neutrophils 61.4 % (42.0-75.0); Hematocrit 37.7 % (42.0-52.0); Hemoglobin 13.2 g/dL (14.0-18.0); Mean Corpuscular Hemoglobin 32.5 pg (27.0-31.0); Mean Corpuscular Volume 92.9 fL (78.0-98.0); Mean Platelet Volume 9.6 fL (7.4-10.4); Platelet Count 199 10x3/uL (130-400); RBC Distribution Width 13.2 % (11.5-14.5); Red Blood Cell (RBC) Count 4.06 mill/uL (4.70-6.10)
[2024-03-16 20:21] LABS: ALT (SGPT) 28 U/L (8-55); AST (SGOT) 32 U/L (5-34); Alkaline Phosphatase 76 U/L (40-110); Anion Gap 15 mmol/L (10-20); BUN (Urea Nitrogen) 7 mg/dL (8.9-20.6); Bilirubin, Total 0.4 mg/dL (0.2-1.2); Calc. Creatinine Clearance 0 mL/min (70-130); Calcium 7.8 mg/dL (7.8-10.44); Carbon Dioxide 21 mmol/L (22-29); Chloride 106 mmol/L (98-107); Estimated GFR 110; Globulin 2.3 g/dL (2.4-3.5); Glucose 159 mg/dL (70-105); Potassium 3.8 mmol/L (3.5-5.1); Protein, Total 5.3 g/dL (6.0-8.3); Sodium 138 mmol/L (136-145)
[2024-03-16 20:26] LABS: Troponin I 0.012 ng/mL (< 0.028)
[2024-03-16] MEDS ORDERED: Acetaminophen 500 MG TAB ONE (20:58)
[2024-03-16] MEDS ORDERED: Ondansetron ODT 4 MG TAB PO PRN (21:25)
[2024-03-16] MEDS ORDERED: Ondansetron PF 4 MG/2 ML Vial IVP PRN (21:25)
[2024-03-16] MEDS ORDERED: Ketorolac Tromethamine 30 MG (1 mL) VIAL ONE (21:53)
[2024-03-16 22:37] LABS: Acetaminophen Less than 10 mcg/mL (Less than 10); Alcohol Less than 10.0 mg/dL (Less than 10); Salicylate Less than 8.0 mg/dL (Less than 8.0)
[2024-03-16 23:00] VITALS: BMI 44.3
[2024-03-16] MEDS: Sodium Chloride 0.9% 1,000 ML IV SCH (23:17)
[2024-03-17 00:04] LABS: Bacteria/HPF None Seen HPF (None Seen); Bilirubin Negative (Negative); Blood, Urine Negative (Negative); CAUTI Indications for Culture Alt mental st,lethar; Clarity Clear (Clear); Glucose, Urine (Dipstick) Normal (Negative); Ketone, Urine Trace mg/dL (Negative); Leukocyte Negative Leu/uL (Negative); Nitrite Negative (Negative); Protein, Urine (Dipstick) 30 mg/dL (Neg-Trace); RBC/HPF 0-3 HPF (0-3); Specific Gravity, Urine 1.027 (1.002-1.036); Squamous Epithelial 0-3 HPF (0-3); Urobilinogen 3 mg/dL (Less than 2); WBC/HPF 0-3 HPF (0-3); pH, Urine 5.5 (5.0-9.0)
[2024-03-17 00:05] LABS: Urine Culture Reflex No No
[2024-03-17 00:11] LABS: Amphetamine Not Detected (NotDetected); Barbiturates Screen Not Detected (NotDetected); Benzodiazepine Screen Not Detected (NotDetected); Cocaine Metabolite Screen Detected (NotDetected); Methadone Not Detected (NotDetected); Methamphetamine Not Detected (NotDetected); Opiate Screen Not Detected (NotDetected); Oxycodone Screen Not Detected (NotDetected); Phencyclidine (PCP) Not Detected (NotDetected); THC/Cannabinoid Screen Not Detected (NotDetected); Tricyclic Screen Not Detected (NotDetected)
[2024-03-17 05:06] LABS: #Basophils 0.06 10x3/uL (0.0-0.2); %Basophils 0.9 % (0.0-1.0); %Lymphocytes 33.2 % (21.0-51.0); %Monocytes 9.3 % (0.0-10.0); Hemoglobin 13.4 g/dL (14.0-18.0); Mean Corpuscular HGB CONC 34.4 g/dL (32.0-36.0); Mean Corpuscular Hemoglobin 32.3 pg (27.0-31.0); Mean Platelet Volume 9.7 fL (7.4-10.4); Platelet Count 175 10x3/uL (130-400); RBC Distribution Width 13.1 % (11.5-14.5); Red Blood Cell (RBC) Count 4.15 mill/uL (4.70-6.10)
[2024-03-17 05:25] LABS: ALT (SGPT) 31 U/L (8-55); AST (SGOT) 27 U/L (5-34); Alkaline Phosphatase 75 U/L (40-110); Anion Gap 9 mmol/L (10-20); BUN (Urea Nitrogen) 7 mg/dL (8.9-20.6); Bilirubin, Total 0.6 mg/dL (0.2-1.2); Calc. Creatinine Clearance 219 mL/min (70-130); Calcium 7.8 mg/dL (7.8-10.44); Carbon Dioxide 27 mmol/L (22-29); Cardiac Risk 3.5 (Less than 4.5); Chloride 107 mmol/L (98-107); Cholesterol 108 mg/dl (< 200 Desired); Estimated GFR 111; Globulin 2.1 g/dL (2.4-3.5); Glucose 88 mg/dL (70-105); HDL Cholesterol 31 mg/dL (>60 Neg Risk); LDL Cholesterol, Calculated 41 mg/dL; Potassium 3.4 mmol/L (3.5-5.1); Protein, Total 5.1 g/dL (6.0-8.3); Sodium 140 mmol/L (136-145); Triglycerides 180 mg/dL (Less than 150)
[2024-03-17] MEDS ORDERED: Enoxaparin 40 MG (0.4 mL) SYRINGE SC SCH (09:00)
[2024-03-17] MEDS ORDERED: Pantoprazole 40 MG VIAL IVP SCH (09:00)
[2024-03-17] MEDS: Aspirin 81 mg Enteric Coated Tablet PO SCH (10:03)
[2024-03-17] MEDS: FLUoxetine HCl 20 MG CAP PO SCH (10:04)
[2024-03-17] MEDS: Famotidine 20 MG TAB PO SCH (10:04)
[2024-03-17] MEDS: Pantoprazole 40 MG DR.TAB PO SCH (10:37)
[2024-03-17 10:43] LABS: Hemoglobin A1c 4.8 % (4.0-6.0)
[2024-03-17] MEDS ORDERED: Glucagon 1 MG/ML KIT IM PRN (12:43)
[2024-03-17] MEDS ORDERED: Dextrose 5% in Water 1,000 ML IV PRN (12:43)
[2024-03-17] MEDS ORDERED: Dextrose 50% Abboject 50 ML SYRINGE SLOW IVP PRN (12:43)
[2024-03-17] MEDS: Potassium Chloride 20 MEQ TAB PO SCH (13:15)
[2024-03-17 13:20] LABS: PTT 25.8 sec (22.9-36.1); Prothrombin Time 13.5 sec (12.0-14.7)
[2024-03-17 13:22] LABS: D-Dimer Test 0.59 mcg/mL (0.27-0.43)
[2024-03-17 16:25] LABS: Troponin I Less than 0.010 ng/mL (< 0.028)
[2024-03-17] MEDS: traMADol HCl 50 MG TAB PO PRN (18:09)
[2024-03-17] MEDS: Atorvastatin Calcium 40 MG TAB PO SCH (19:58)
[2024-03-17] MEDS: Gabapentin 300 MG CAP PO SCH (19:58)
[2024-03-17] MEDS: Apixaban 5 MG TAB PO SCH (19:58)
[2024-03-17] MEDS: Cyclobenzaprine 10 MG TAB PO PRN (20:03)
[2024-03-18 07:49] VITALS: BP 141/82; TEMP 98.2
[2024-03-18] MEDS: Acetaminophen 325 MG TAB PO PRN (07:55)
[2024-03-18] MEDS: levETIRAcetam 500 MG TAB PO SCH (07:57)
[2024-03-18] MEDS ORDERED: Non-Formulary Item 1 EACH (Atorvastatin Calcium [Lipitor] 80 MG Tablet) PO SCH (09:00)
[2024-03-18] MEDS ORDERED: Non-Formulary Item 1 EACH (Omeprazole [Omeprazole] 40 MG Capsule.Dr) PO SCH (09:00)
[2024-03-18] MEDS: FLU (Fluarix Triv) TS24-25(6MOS UP)/PF 45 MCG/0.5 ML Syringe IM ONE (10:13)
[2024-03-20 12:27] LABS: Cardiolipin IgA Ab 1.7 APL-U/mL (<14 Negative); Cardiolipin IgM Ab 1.4 MPL-U/mL (<10 Negative); EliA APS New Method **** NEW METHOD ****
== END 2024-03-18 10:20 | disposition home or self-care (01) ==
LOC: ERS 19:38 → OBS 21:27
PROVIDERS: ADMIT Internal Medicine; ATTEND Family Medicine
PROC: B24BZZZ Ultrasonography of Heart with Aorta (ICD-10-PCS; principal; 2024-03-17)
DX: G93.41 Metabolic encephalopathy (principal); T50.901A Poisoning by unspecified drugs, medicaments and biological substances, accidental (unintentional), initial encounter; R47.81 Slurred speech; R53.1 Weakness; R20.0 Anesthesia of skin; R07.89 Other chest pain; I10 Essential (primary) hypertension; E11.9 Type 2 diabetes mellitus without complications; E87.6 Hypokalemia; F32.A Depression, unspecified; M25.511 Pain in right shoulder; K21.9 Gastro-esophageal reflux disease without esophagitis; G40.909 Epilepsy, unspecified, not intractable, without status epilepticus; Z91.038 Other insect allergy status; Z88.8 Allergy status to other drugs, medicaments and biological substances; Z79.01 Long term (current) use of anticoagulants; Z79.84 Long term (current) use of oral hypoglycemic drugs; Z79.899 Other long term (current) drug therapy
CPT/HCPCS: 36415; 36416; 70450; 70551; 71045; 80053; 80061; 80306; 80307; 81001; 83036; 83090; 83880; 84145; 84484; 85025; 85300; 85303; 85306; 85307; 85598; 85610; 85730; 86147; 87040; 93005; 93306; 94760; 96374; G0378; J1885